=== PATIENT | male | born 1950 | race Caucasian/White ===

== ENCOUNTER 2018-09-16 14:45 | Emergency (ER) | payer SELFPAY ==
[~2018-09-16] VITALS: Ht 182.9 cm; Wt 63.5 kg
[2018-09-16 14:53] VITALS: BP 153/70
--- NOTE | 2018-09-16 15:00 | NUR ---
PT PLACED IN BED 1
--- NOTE | 2018-09-16 15:00 | NUR ---
EDMD MADE AWARE OF BS AND PT STATUS. ORDERS PLACED
--- NOTE | 2018-09-16 15:08 | NUR ---
CALLED PELLETIZER OPERATOR KENIA FOR CT-CODE BRAIN PER DR. WATTS.
[2018-09-16] MEDS ORDERED: MORPHINE SULFATE 4 MG/ML SYR IVP ONE (16:05)
[2018-09-16] MEDS ORDERED: ONDANSETRON 4 MG/2 ML VIAL IVP ONE (16:05)
[2018-09-16] MEDS ORDERED: DEXTROSE 50% 50 ML SYR IVP ONE (16:05)
--- NOTE | 2018-09-16 16:11 | NUR ---
Nursing assessment completed. Seen and evaluated by NARCISA YOST completed.
[2018-09-16 16:26] LABS: BASOPHILS % (AUTO) 0.1 % (0.0-2.0); EOSINOPHILS % (AUTO) 0.2 % (0.0-4.0); HEMATOCRIT 38.7 % (36-52); HEMOGLOBIN 12.9 g/dL (12.0-18.0); LYMPHOCYTES # (AUTO) 0.8 K/uL (2.0-11.5); LYMPHOCYTES % (AUTO) 9.9 % (20.5-51.1); MEAN CORPUSCULAR HEMOGLOBIN 32 pg (27-31); MEAN CORPUSCULAR HGB CONC 33 g/dL (33-37); MEAN CORPUSCULAR VOLUME 96.1 fL (80-94); MONOCYTES # (AUTO) 0.3 K/uL (0.8-1.0); MONOCYTES % (AUTO) 3.8 % (1.7-9.3); NEUTROPHILS # (AUTO) 7.2 K/uL (1.8-7.7); PLATELET COUNT (AUTO) 192 K/uL (140-450); RED BLOOD CELL COUNT(AUTO) 4.03 MIL/uL (4.20-6.10); RED CELL DISTRIBUTION WIDTH 12.7 % (11.6-13.7); WHITE BLOOD COUNT (AUTO) 8.4 K/uL (4.8-10.8)
[2018-09-16 16:40] LABS: ALBUMIN 4.4 g/dL (3.4-5.0); ANION GAP 14.5 (8-16); CARBON DIOXIDE 27.3 mmol/L (21-32); CREATININE 1.5 mg/dL (0.7-1.3); POTASSIUM 3.8 mmol/L (3.5-5.1); TOTAL BILIRUBIN 0.6 mg/dL (0.0-1.0)
[2018-09-16] MEDS ORDERED: NACL 0.9% 1,000 ML IV ONE (17:00)
[2018-09-16] MEDS ORDERED: HYDROcodone/APAP 5/325 MG 1 TAB TAB PO ONE (17:25)
[2018-09-16 19:25] VITALS: BP 166/79
--- NOTE | 2018-09-16 19:26 | NUR ---
Dispo and medical decision making DC home with instructions and prescriptions, understood by patient well. VS WNL, DC home ambulatory.
== END 2018-09-16 19:26 | disposition home or self-care (01) ==
LOC: MED 14:45
DX: H34.11 Central retinal artery occlusion, right eye (principal); R51 Headache; E11.649 Type 2 diabetes mellitus with hypoglycemia without coma; I10 Essential (primary) hypertension; E78.5 Hyperlipidemia, unspecified
CPT/HCPCS: 36415; 70450; 80053; 84484; 85025; 93005; 96361; 96374; 96375; 99284; J2405; J7030

== ENCOUNTER 2020-01-06 15:56 | Emergency (ER) | payer MEDICAID ==
[~2020-01-06] VITALS: Ht 172.7 cm; Wt 50.3 kg
[2020-01-06 15:59] VITALS: BP 139/77
--- NOTE | 2020-01-06 16:06 | NUR ---
PT C/O FATIGUE AND GENERALIZED BODY PAIN AND WEAKNESS X 3 MONTHS DENIES N/V STATES DIZZINESS AND FALLS MEDHX: CVA, DM, HTN
--- NOTE | 2020-01-06 16:07 | NUR ---
PT DENIES CP SPECIFICALLY, STATES HE HAS GENERALIZED BODY PAIN
--- NOTE | 2020-01-06 16:14 | NUR ---
DR CHAO EVALUATING PT AT BEDSIDE
--- NOTE | 2020-01-06 16:18 | NUR ---
EMT AT BEDSIDE FOR EKG
--- NOTE | 2020-01-06 16:31 | NUR ---
PT ATTEMPTING TO VOID FOR URINE SAMPLE NOW.
--- NOTE | 2020-01-06 16:38 | NUR ---
XRAY AT BEDSIDE
--- NOTE | 2020-01-06 16:46 | NUR ---
MARKETING AND PROMOTIONS MANAGER AT BEDSIDE FOR BLOOD DRAW
[2020-01-06 17:27] LABS: APPEARANCE,URINE CLEAR (CLEAR); BILIRUBIN,URINE NEGATIVE (NEGATIVE); BLOOD, URINE NEGATIVE (NEGATIVE); COLOR,URINE YELLOW (YELLOW); LEUKOCYTE ESTERASE ,URINE NEGATIVE (NEGATIVE); NITRITE, URINE NEGATIVE (NEGATIVE); UGLUCOSE NEGATIVE (NEGATIVE)
[2020-01-06 17:34] LABS: BASOPHILS # (AUTO) 0.1 K/uL (0.00-0.22); EOSINOPHILS % (AUTO) 0.6 % (0.0-4.0); HEMATOCRIT 36.6 % (36-52); HEMOGLOBIN 12.2 g/dL (12.0-18.0); LYMPHOCYTES # (AUTO) 0.8 K/uL (2.0-11.5); LYMPHOCYTES % (AUTO) 12.8 % (20.5-51.1); MEAN CORPUSCULAR HEMOGLOBIN 33 pg (27-31); MEAN CORPUSCULAR HGB CONC 34 g/dL (33-37); MEAN CORPUSCULAR VOLUME 99.1 fL (80-94); MONOCYTES # (AUTO) 0.4 K/uL (0.8-1.0); MONOCYTES % (AUTO) 6.7 % (1.7-9.3); NEUTROPHILS # (AUTO) 4.9 K/uL (1.8-7.7); NEUTROPHILS % (AUTO) 78.9 % (42.2-75.2); PLATELET COUNT (AUTO) 192 K/uL (140-450); RED BLOOD CELL COUNT(AUTO) 3.69 MIL/uL (4.20-6.10); RED CELL DISTRIBUTION WIDTH 13.1 % (11.6-13.7); WHITE BLOOD COUNT (AUTO) 6.2 K/uL (4.8-10.8)
[2020-01-06 17:57] LABS: ANION GAP 9.4 (8-16); CARBON DIOXIDE 30.8 mmol/L (21-32); CREATININE 1.2 mg/dL (0.6-1.3); POTASSIUM 4.2 mmol/L (3.5-5.1); THYROID STIMULATING HORMONE 3.33 uIU/mL (0.34-3.74); TOTAL BILIRUBIN 0.5 mg/dL (0.0-1.0)
--- NOTE | 2020-01-06 18:00 | NUR ---
PT WAS MOVED TO 9 VIA [facility].
[2020-01-06 18:33] VITALS: BP 132/68
--- NOTE | 2020-01-06 18:33 | NUR ---
PT UNABLE TO SIGN D/C PAPERWORK DUE TO MISSING FINGERS AND DEFORMITY IN FINGERS
--- NOTE | 2020-01-06 18:33 | NUR ---
Patient discharged with v/s stable. Written and verbal after care instructions given and explained. Patient alert, oriented and verbalized understanding of instructions. Ambulatory with steady gait W/ CANE.WILL BE TAKEN HOME BY FAMILY MEMBER. All questions addressed prior to discharge. ID band removed. Patient advised to follow up with PMD. Rx of TRAMADOL given. Patient educated on indication of medication including possible reaction and side effects. Opportunity to ask questions provided and answered.
== END 2020-01-06 18:33 | disposition home or self-care (01) ==
LOC: MED 15:56
DX: R07.9 Chest pain, unspecified (principal); E11.9 Type 2 diabetes mellitus without complications; E86.0 Dehydration; I10 Essential (primary) hypertension
CPT/HCPCS: 36415; 71045; 80053; 81003; 83690; 84443; 84484; 85025; 93005; 99285; Q0092

== ENCOUNTER 2020-09-09 16:46 | Inpatient (IN) | payer MEDICAID, SELFPAY ==
[~2020-09-09] VITALS: Ht 177.8 cm; Wt 56.2 kg
--- NOTE | 2020-09-09 16:50 | NUR ---
DR LARA AT BEDSIDE
[2020-09-09 16:52] VITALS: BP 115/47
--- NOTE | 2020-09-09 16:53 | NUR ---
LAB AND RT AT BEDSIDE
--- NOTE | 2020-09-09 16:55 | NUR ---
PT OM VENT SETTINGS: FIO2 40%, PEEP 5, RATE 18, VT 450
[2020-09-09 17:00] VITALS: BP 102/64
[2020-09-09] MEDS ORDERED: cefTRIAXone 1,000 MG in DEXT 5% MINI-BAG PLUS 50 ML IV ONE (17:00)
[2020-09-09] MEDS ORDERED: NACL 0.9% 1,000 ML IV SCH (17:00)
--- NOTE | 2020-09-09 17:01 | NUR ---
70 Y/O MALE ALOC FROM CUSTODIAL (CEC) REPORTS OF INCREASING ALOC. LAST KNOWN WELL 0800 TODAY. NORMALLY CAN MOUTH WORDS BUT UNABLE TO DO SO SINCE 0800. FEBRILE PER FACILITY MEDICATED WITH TYLENOL PRIOR TO ARRIVAL. PT A/0 X0, GCS 9. PT PLACED ON VENT SETTINGS BY RT. LUNG SOUNDS CLEAR BILATERAL THROUGHOUT. ACTIVE BOWEL SOUNDS PRESENT IN ALL 4 QUARDRANTS. PT LAYING IN BED, WITH BRAKES LOCKED, X2 SIDERAILS UP. CHRONIC TRACH TO VENT PMH: CHRONIC RESP FAILURE, ANEMIA, ANXIETY, DM NKA
[2020-09-09 17:10] LABS: APPEARANCE,URINE SL CLOUDY (CLEAR); BILIRUBIN,URINE NEGATIVE (NEGATIVE); BLOOD, URINE TRACE-I (NEGATIVE); COLOR,URINE YELLOW (YELLOW); LEUKOCYTE ESTERASE ,URINE 1+ (NEGATIVE); NITRITE, URINE NEGATIVE (NEGATIVE); UGLUCOSE NEGATIVE (NEGATIVE)
[2020-09-09 17:11] LABS: HEMATOCRIT 21.5 % (36-52); LYMPHOCYTES # (AUTO) 0.5 K/uL (2.0-11.5); LYMPHOCYTES % (AUTO) 3.5 % (20.5-51.1); MEAN CORPUSCULAR HEMOGLOBIN 33 pg (27-31); MEAN CORPUSCULAR HGB CONC 32 g/dL (33-37); MEAN CORPUSCULAR VOLUME 101.4 fL (80-94); MONOCYTES # (AUTO) 0.5 K/uL (0.8-1.0); MONOCYTES % (AUTO) 3.6 % (1.7-9.3); NEUTROPHILS # (AUTO) 13.5 K/uL (1.8-7.7); NEUTROPHILS % (AUTO) 92.9 % (42.2-75.2); PLATELET COUNT (AUTO) 162 K/uL (140-450); RED BLOOD CELL COUNT(AUTO) 2.12 MIL/uL (4.20-6.10); RED CELL DISTRIBUTION WIDTH 16.3 % (11.6-13.7); WHITE BLOOD COUNT (AUTO) 14.5 K/uL (4.8-10.8)
--- NOTE | 2020-09-09 17:11 | NUR ---
PT TAKEN TO CT VIA EMILIANO ACCOMPANIED BY RYAN RN, RT, AND CODY.
[2020-09-09] MEDS ORDERED: cefTRIAXone 1,000 MG VIAL ONE (17:15)
[2020-09-09 17:18] LABS: CALCIUM OXALATE CRYSTALS,UR 0-10 /HPF (None Seen)
[2020-09-09 17:31] LABS: ALBUMIN 2.2 g/dL (3.4-5.0); ANION GAP 3.3 (8-16); CARBON DIOXIDE 39.9 mmol/L (21-32); POTASSIUM 3.2 mmol/L (3.5-5.1); TOTAL BILIRUBIN 0.2 mg/dL (0.0-1.0)
--- NOTE | 2020-09-09 17:31 | NUR ---
NURSE PLASTICS AT PT BEDSIDE.
--- NOTE | 2020-09-09 17:36 | NUR ---
EMT at pt bedside for EKG.
--- NOTE | 2020-09-09 17:45 | NUR ---
JIM GRACIA SAMPLE COLLECTED AND WALKED TO LAB
--- NOTE | 2020-09-09 18:11 | NUR ---
Spoke with shaun Diaz [phone] for pt updates. Provided phone number for Vicky, shaun daughter [phone] for future updates PRN. Niuean speaking only.
[2020-09-09] MEDS ORDERED: [UNRECOGNIZED DRUG - CODE] GT (18:17)
[2020-09-09] MEDS ORDERED: METF850T GT (18:17)
[2020-09-09] MEDS ORDERED: VITA1TAB44 GT (18:17)
[2020-09-09] MEDS ORDERED: DILT-135 GT (18:17)
[2020-09-09] MEDS ORDERED: MIRT-91 GT (18:17)
[2020-09-09] MEDS ORDERED: GLIP5TER GT (18:17)
[2020-09-09] MEDS ORDERED: FERR325E14 GT (18:17)
[2020-09-09] MEDS ORDERED: SYN.05 GT (18:17)
[2020-09-09] MEDS ORDERED: TAMS0.4C96 GT (18:17)
[2020-09-09] MEDS ORDERED: TRA200 GT (18:17)
[2020-09-09] MEDS ORDERED: ZINC220C28 GT (18:17)
[2020-09-09] MEDS ORDERED: MULT-2253 GT (18:17)
[2020-09-09] MEDS ORDERED: ASCO-786 GT (18:17)
[2020-09-09] MEDS ORDERED: SCOP1PAT TD (18:17)
[2020-09-09] MEDS ORDERED: VITB12 GT (18:17)
[2020-09-09] MEDS ORDERED: VANCOMYCIN PER PHARMACY MC PRN (18:45)
[2020-09-09] MEDS ORDERED: NACL 0.9% 1,000 ML IV ONE (18:45)
[2020-09-09 19:00] VITALS: BP 115/38
--- NOTE | 2020-09-09 19:16 | NUR ---
GAVE REPORT TO AMELIA HEBERT. TRANSFER OF CARE AT THIS TIME.
--- NOTE | 2020-09-09 19:16 | NUR ---
REPORT RECEIVED FROM RYAN HEBERT FOR CONTINUITY OF CARE
--- NOTE | 2020-09-09 19:45 | NUR ---
LAB AT BEDSIDE
[2020-09-09 21:20] VITALS: BP 120/47
[2020-09-09] MEDS ORDERED: PIPERACILLIN/TAZOBACTAM 3.375 GM VIAL IV ONE (22:04)
[2020-09-09] MEDS: PIPERACILLIN/TAZOBACTAM 3.375 GM in DEXTROSE 5% 50 ML IV SCH (22:07)
[2020-09-09] MEDS ORDERED: VANCOMYCIN 1GM/DEXT 5% PREMIX 200 ML IV SCH (22:10)
[2020-09-09] MEDS ORDERED: VANCOMYCIN 1,000 MG VIAL ONE (22:14)
--- NOTE | 2020-09-09 22:58 | NUR ---
Karina lloyd in [facility] - 09/09/20 at 2259 by [email or web address] RECEIVED CALL FROM PT'S FAMILY J CARLOS
--- NOTE | 2020-09-09 22:59 | NUR ---
RECEIVED CALL FROM PT'S FAMILY SANJEEV CHRISTIAN UPDATED ON PT STATUS ALL QUESTIONS AND CONCERNS ANSWERED AT THIS TIME.
--- NOTE | 2020-09-09 23:11 | NUR ---
RT AT BEDSIDE
[2020-09-09 23:20] VITALS: BP 119/44
--- NOTE | 2020-09-09 23:47 | NUR ---
Patient appears to be resting comfortably in bed. Vital Signs within normal limits. Respirations even and unlabored. Will continue to monitor.
[2020-09-10] VITALS (9 sets, daily range): BP systolic 110–169; BP diastolic 43–78
--- NOTE | 2020-09-10 01:02 | NUR ---
Patient appears to be resting comfortably in bed. Vital Signs within normal limits. Respirations even and unlabored. Will continue to monitor.
--- NOTE | 2020-09-10 03:22 | NUR ---
Patient appears to be resting comfortably in bed. Vital Signs within normal limits. Respirations even and unlabored. Will continue to monitor.
[2020-09-10] MEDS ORDERED: PIPERACILLIN/TAZOBACTAM 3.375 GM VIAL IV ONE (05:09)
[2020-09-10] MEDS: PIPERACILLIN/TAZOBACTAM 3.375 GM in DEXTROSE 5% 50 ML IV SCH ×3 (05:14→20:47)
--- NOTE | 2020-09-10 05:51 | NUR ---
Patient appears to be resting comfortably in bed. Vital Signs within normal limits. Respirations even and unlabored. Will continue to monitor.
--- NOTE | 2020-09-10 07:14 | NUR ---
REPORT GIVEN TO WILLIS HEBERT FOR CONTINUITY OF CARE
--- NOTE | 2020-09-10 07:20 | NUR ---
REPORT RECIEVED FROM EMILEE CISNEROS. TRANSFER OF CARE AT THIS TIME.
--- NOTE | 2020-09-10 07:20 | NUR ---
Karina lloyd in [facility] - 09/10/20 at 0741 by JIMTiny REPORT RECIEVED FROM EMILEE CISNEROS. TRANSFER OF CARE AT THIS TIME.
--- NOTE | 2020-09-10 07:30 | NUR ---
PT HAD A BM, DARK STOOL. PT CHANGED INTO CLEAN GOWN, NEW DIAPER. REPOSITIONED TO LEFT SIDE FOR COMFORT. BED LOCKED AND IN LOWEST POSITION. SIDE RAILS X2. CART ATTENDANT/PULSE OX IN PLACE. BLANKETS REMOVED DUE TO RECTAL TEMP OF 99.8.
--- NOTE | 2020-09-10 07:55 | NUR ---
REPORT GIVEN TO EMILEE BROOKS VIA PHONE.
--- NOTE | 2020-09-10 08:05 | NUR ---
PATIENT HAS BEEN SCREENED AND CATEGORIZED HIGH NUTRITION RISK. PATIENT WILL BE SEEN WITHIN 1-2 DAYS OF ADMISSION. 09/10/2020-09/11/[address]
--- NOTE | 2020-09-10 08:15 | NUR ---
Patient will be admitted to care of DR. AMIN. Admited to TELE. Will go to room 124B. Belongings list completed. Report to EMILEE BROOKS.
--- NOTE | 2020-09-10 08:28 | NUR ---
REC'D PT FROM ED. PT A/OX1, CAN RECOGNIZE HIS NAME BEING CALLED. PT ON TRACH TO VENT. WITH FOLLOWING SETTINGS: PRVC A/C 158 BPM; TV 450; PEEP 5; FIO2 35. GTUBE SITE CLEAN, DRY. FAULKNER CATHETER 14 F PATENT. SACRAL PRESSURE WOUND. WARM SKIN, SATURATION OF 99%. NO PEDAL EDEMA. CAN AUSCULTATE VENTILATION ON JENNIFER. LUNGS, CRACKLING SOUNDS HEARD, S1S2 NOTED. PT ATTEMPTING TO VERBALIZE WORDS, INCOMPREHENSIBLE. CALL LIGHT WITHIN REACH. WILL CONTINUE TO MONITOR.
[2020-09-10 10:07] LABS: BASOPHILS % (AUTO) 0.1 % (0.0-2.0); EOSINOPHILS % (AUTO) 0.1 % (0.0-4.0); HEMOGLOBIN 8.3 g/dL (12.0-18.0); LYMPHOCYTES # (AUTO) 0.4 K/uL (2.0-11.5); LYMPHOCYTES % (AUTO) 2.8 % (20.5-51.1); MEAN CORPUSCULAR HEMOGLOBIN 32 pg (27-31); MEAN CORPUSCULAR HGB CONC 32 g/dL (33-37); MEAN CORPUSCULAR VOLUME 100.9 fL (80-94); MONOCYTES # (AUTO) 0.4 K/uL (0.8-1.0); PLATELET COUNT (AUTO) 181 K/uL (140-450); RED BLOOD CELL COUNT(AUTO) 2.57 MIL/uL (4.20-6.10); WHITE BLOOD COUNT (AUTO) 12.7 K/uL (4.8-10.8)
[2020-09-10 10:17] LABS: ANION GAP 4.7 (8-16); CARBON DIOXIDE 36.1 mmol/L (21-32); CREATININE 0.8 mg/dL (0.6-1.3)
[2020-09-10] MEDS ORDERED: MAG SULF 2000 MG/WATER PREMIX 50 ML IV PRN (10:20)
[2020-09-10 10:26] LABS: POTASSIUM 2.8 mmol/L (3.5-5.1)
--- NOTE | 2020-09-10 10:45 | NUR ---
COLLECTED MRSA NASAL SPECIMEN FROM LEFT AND RIGHT NARES. SENT SPECIMEN TO LAB. ORDER PLACED IN SYSTEM. PT TOLERATED PROCEDURE WELL.
--- NOTE | 2020-09-10 11:00 | NUR ---
pt to ct for scan of abdomen then back to room at 1115 placed back on vent with same settings
--- NOTE | 2020-09-10 11:15 | NUR ---
PT TRANSPORTED TO CT SCAN FOR IMAGING, PLACED ON MONITOR. PT WAS SCANNED, PT STABLE DURING TRANSPORT. PT PLACED ON VENTILATOR UPON RETURN. NO SIGN OF DISTRESS. PT TOLERATED PROCEDURE WELL.
[2020-09-10] MEDS ORDERED: POTASSIUM CHLORIDE 20% 40 MEQ/15 ML UDC GT PRN (11:20)
[2020-09-10] MEDS: BLOOD GLUCOSE MONITORING 1 DEV DEV FS SCH ×3 (11:39→20:48)
[2020-09-10] MEDS ORDERED: POTASSIUM CHLORIDE 40 MEQ, LIDOCAINE MPF 1% 25 MG in NACL 0.9% 250 ML IV SCH (12:30)
[2020-09-10] MEDS: FERROUS SULFATE 300 MG/5 ML UDC GT SCH ×2 (13:00→17:28)
[2020-09-10] MEDS: DILTIAZEM 60 MG TAB GT SCH ×2 (13:00→20:46)
[2020-09-10] MEDS: SCOPOLAMINE 1.5 MG/72 HR PATCH TD SCH (13:00)
--- NOTE | 2020-09-10 13:01 | NUR ---
BEGAN POTASSIUM INFUSION. PT TOLERATED PROCEDURE WELL.
--- NOTE | 2020-09-10 14:00 | NUR ---
PER DR. BURGOS, PAUSE GTUBE FEEDING D/T PT'S VISIBLE ABDOMINAL DISTENTION. PLACE PT ON INTERMITTENT LOW SUCTION. FOLLOWED DRRui'S ORDER .PT TOLERATED PROCEDURE WELL.
[2020-09-10] MEDS ORDERED: CRUSHER, PILL MC ONE (14:17)
--- NOTE | 2020-09-10 16:35 | NUR ---
TRANSPORTED PT TO CT SCAN FOR ABD CT. PT PLACED ON MONITOR. PT TOLERATED PROCEDURE WELL
[2020-09-10] MEDS ORDERED: NACL 0.9% IRR 250 ML BOTTLE IR PRN (16:45)
--- NOTE | 2020-09-10 16:45 | NUR ---
COVID PCR SPECIMEN COLLECTED, JENNIFER. NARES, PT TOLERATED PROCEDURE WELL. ORDER PLACED IN SYSTEM
[2020-09-10] MEDS ORDERED: MAGNESIUM HYDROXIDE 2400 MG/30 ML UDC PO PRN (17:20)
[2020-09-10] MEDS ORDERED: LACTULOSE 20 GM/30 ML UDC PO SCH (17:20)
[2020-09-10] MEDS ORDERED: MINERAL OIL 135 ML ENEM RC PRN (17:20)
[2020-09-10] MEDS: INSULIN LISPRO SLIDING SCALE 100 UNITS/ML VIAL SUBQ PRN (17:25)
--- NOTE | 2020-09-10 18:27 | NUR ---
CURRENT FAULKNER CATHETER WAS LEAKING, LINEN WAS SATURATED WITH URINE. CHECKED BALLOON WHICH ONLY HAD 2ML OF WATER, INSERTED CATHETER ONE MORE INCH AND ATTEMPTED TO REINFLATE BALLOON WITH RESISTANCE. REMOVED CURRENT 14FRENCH FAULKNER AND REPLACED CATHETER. URINARY CATHETER 16 WALLISIAN WAS PLACED USING STERILE TECHNIQUE. PT WAS PREPPED WITH ACCOMPANYING CLEANING PACKET, CATHETER WAS LUBRICATED AND INSERTED UNTIL URINE FLOW NOTICED, INSERTED ADDITIONAL 2 INCHES, INFLATED BALLOON WITH INCLUDED SALINE. PT TOLERATED PROCEDURE WELL.
[2020-09-10] MEDS ORDERED: KETOROLAC 15 MG/ML VIAL IVP PRN (18:35)
[2020-09-10] MEDS ORDERED: MORPHINE SULFATE 2 MG/ML SYR IVP PRN (18:35)
--- NOTE | 2020-09-10 19:38 | NUR ---
ENDORSED PT TO CYBER INCIDENT HANDLER NURSE, PT STABLE, CALL LIGHT WITHIN REACH.
--- NOTE | 2020-09-10 19:39 | NUR ---
RECEIVING PATIENT FROM AM NURSE FOR CONTINUITY OF CARE. PATIENT IS [place] SPEAKING, ABLE TO ANSWER SIMPLE QUESTIONS AND MAKE NEED KNOWN. A/A/O X2. ON TELE MONITOR. PATIENT IS ON TRACH TO VENT, FIO2 35, TV 450, PEEP 5, PRVC A/C, O2 SAT 99%. NO SIGN OF RESPIRATORY DISTRESS NOTED. G-TUBE IN PLACE IN INTERMITTENT SUCTION ORDERED, ABDOMEN SLIGHTLY DISTENDED, FEEDING HOLD ORDERED. IV ON RIGHT UPPER ARM SALINE LOCK. SACRAL WOUND WITH DRESSING IN PLACE, DRY, CLEAN AND INTACT. FAULKNER CATHETER IN PLACE, DRAINING WELL WITH CLEAR YELLOW. PLAN OF CARE DISCUSSED. BED IN LOW POSITION. SAFETY PRECAUTION IN PLACE. CALL LIGHT WITHIN REACH. WILL CONTINUE TO MONITOR.
[2020-09-10] MEDS: metFORMIN 850 MG TAB GT SCH (20:45)
[2020-09-10] MEDS: MIRTAZAPINE 15 MG TAB GT SCH (20:46)
[2020-09-10] MEDS: LABETALOL 200 MG TAB GT SCH (20:46)
[2020-09-10] MEDS: glipiZIDE 5 MG TAB GT SCH (20:47)
[2020-09-10] MEDS: ASCORBIC ACID 500 MG/5 ML ORASYR GT SCH (20:47)
--- NOTE | 2020-09-10 20:48 | NUR ---
MEDICATIONS GIVEN ORDER THROUGH G-TUBE, INTERMITTENT SUCTION TURN OFF. NO RESIDUAL NOTED. PATIENT TOLERATED WELL. WILL CONTINUE TO MONITOR.
[2020-09-10] MEDS: VANCOMYCIN 1,000 MG in DEXTROSE 5% 250 ML IV SCH (22:44)
--- NOTE | 2020-09-10 22:44 | NUR ---
MEDICATION GIVEN ORDERED. PATIENT IS AWAKE, RESPONSE TO NAME. PATIENT TOLERATED WELL. WILL CONTINUE TO MONITOR.
[2020-09-11] VITALS (11 sets, daily range): BP systolic 136–154; BP diastolic 53–70
--- NOTE | 2020-09-11 | NUR ---
ROUND CHECK. PATIENT IS CHANGED POSITION BY NURSES. PATIENT TOLERATED. PATIENT IS IN WARM, AND COMFORTABLE. NO SIGN OF RESPIRATORY DISTRESS NOTED. WILL CONTINUE TO MONITOR.
--- NOTE | 2020-09-11 02:00 | NUR ---
ROUND CHECK. PATIENT IS RESTING WITH EYES CLOSE. NO SIGN OF RESPIRATORY DISTRESS NOTED, O2 SAT 98%. WILL CONTINUE TO MONITOR.
--- NOTE | 2020-09-11 04:00 | NUR ---
ROUND CHECK. PATIENT IS AWAKE, WATCHING TV. ALERT TO NAME. NO SIGN OF RESPIRATORY DISTRESS NOTED, O2 SAT 97%. WILL CONTINUE TO MONITOR.
[2020-09-11] MEDS: PIPERACILLIN/TAZOBACTAM 3.375 GM in DEXTROSE 5% 50 ML IV SCH ×3 (05:11→20:46)
[2020-09-11] MEDS: DILTIAZEM 60 MG TAB GT SCH ×3 (05:11→20:42)
--- NOTE | 2020-09-11 06:00 | NUR ---
TURN PATIENT ORDERED. PATIENT TOLERATED. PATIENT AWAKE AND ALERT TO NAME. NO SIGN OF RESPIRATORY DISTRESS NOTED. WILL CONTINUE TO MONITOR.
[2020-09-11] MEDS: BLOOD GLUCOSE MONITORING 1 DEV DEV FS SCH ×4 (06:35→20:47)
[2020-09-11 07:03] LABS: EOSINOPHILS % (AUTO) 0.1 % (0.0-4.0); HEMATOCRIT 24.5 % (36-52); HEMOGLOBIN 8.1 g/dL (12.0-18.0); LYMPHOCYTES # (AUTO) 0.5 K/uL (2.0-11.5); MEAN CORPUSCULAR HEMOGLOBIN 34 pg (27-31); MEAN CORPUSCULAR HGB CONC 33 g/dL (33-37); MEAN CORPUSCULAR VOLUME 100.8 fL (80-94); MONOCYTES # (AUTO) 0.5 K/uL (0.8-1.0); MONOCYTES % (AUTO) 3.1 % (1.7-9.3); NEUTROPHILS # (AUTO) 15.4 K/uL (1.8-7.7); PLATELET COUNT (AUTO) 169 K/uL (140-450); RED BLOOD CELL COUNT(AUTO) 2.43 MIL/uL (4.20-6.10); RED CELL DISTRIBUTION WIDTH 16.3 % (11.6-13.7); WHITE BLOOD COUNT (AUTO) 16.5 K/uL (4.8-10.8)
--- NOTE | 2020-09-11 07:03 | NUR ---
rec'd pt on felix settins prvc rr 18 vt 450 itime 0.90 peep 5 fio2 35% alarms on and audible and vent is plugged into red outlet, bvm at hob, sxn pt small amt of white thin secretions b\s are coarse bilaterally pt is trach with portex 7 pt is sleeping with no signs ot distress noted at this time will continue to monitor pt
--- NOTE | 2020-09-11 07:07 | NUR ---
CONTACTED DR BURGOS, START TUBE FEEDING NOW AT 10ML/HR. WILL CONTINUE TO MONITOR.
[2020-09-11 07:25] LABS: ANION GAP 7.3 (8-16); CARBON DIOXIDE 37.3 mmol/L (21-32); CREATININE 0.6 mg/dL (0.6-1.3); MAGNESIUM 1.6 mg/dL (1.8-2.4)
--- NOTE | 2020-09-11 07:25 | NUR ---
ENDORSED PATIENT TO DAY SHIFT NURSE FOR CONTINUITY OF CARE.
--- NOTE | 2020-09-11 07:26 | NUR ---
RECEIVED REPORT FROM COMMUNICATIONS EQUIPMENT SUPERVISOR RN FOR CONTINUITY OF CARE. PATIENT RESTING IN BED, TRACH TO VENT. FIO2 35%, O2 SAT 98%, HR 63. EYES OPEN. BEDBOUND. SACRAL PRESSURE ULCER COVERED WITH OPTIFORM. DRESSING INTACT. IV TO RIGHT UPPER ARM 18G TKO. G TUBE IN PLACE, WITH FEEDING GLUCERNA 1.2 @ 10ML/HR. PER COMMUNICATIONS EQUIPMENT SUPERVISOR RN, G TUBE FEEDING JUST RESUMED NOW. 2 OF LARGE BM WITH BLACK STOOK DURING COMMUNICATIONS EQUIPMENT SUPERVISOR, PER COMMUNICATIONS EQUIPMENT SUPERVISOR RN. SAFETY MEASURES IN PLACE, WILL CONTINUE TO MONITOR.
[2020-09-11 07:47] LABS: POTASSIUM 2.6 mmol/L (3.5-5.1)
[2020-09-11 07:56] LABS: NEUTROPHILS % (AUTO) 93.8 % (42.2-75.2)
--- NOTE | 2020-09-11 07:56 | NUR ---
REPORT TO DR. AMIN REGARDING CRITICAL LAB VALUE. K+ 2.6, PHOS 1.0. ALSO REPORT REGARDING 2 OF THE BLACK STOOLS. ORDERS RECEIVED, WILL CARRY OUT.
[2020-09-11] MEDS ORDERED: POTASSIUM CHLORIDE 20% 40 MEQ/15 ML UDC GT SCH (08:15)
[2020-09-11] MEDS: FERROUS SULFATE 300 MG/5 ML UDC GT SCH ×3 (08:45→16:38)
[2020-09-11] MEDS: ZINC SULF 220 MG CAP GT SCH (08:46)
[2020-09-11] MEDS: glipiZIDE 5 MG TAB GT SCH ×2 (08:46→20:42)
[2020-09-11] MEDS: metFORMIN 850 MG TAB GT SCH ×2 (08:46→20:45)
[2020-09-11] MEDS: ASCORBIC ACID 500 MG/5 ML ORASYR GT SCH ×2 (08:46→20:43)
[2020-09-11] MEDS: LABETALOL 200 MG TAB GT SCH ×2 (08:46→20:43)
[2020-09-11] MEDS: LEVOTHYROXINE 0.05 MG TAB GT SCH (08:46)
[2020-09-11] MEDS: CYANOCOBALAMIN 100 MCG TAB GT SCH (08:49)
[2020-09-11] MEDS: VIT-B COMP/VIT-C/FOLIC ACID 1 TAB GT SCH (08:52)
[2020-09-11] MEDS ORDERED: [UNRECOGNIZED DRUG - OTHER] GT SCH (09:00)
[2020-09-11] MEDS ORDERED: POTASSIUM CHLORIDE 40 MEQ, LIDOCAINE MPF 1% 25 MG in NACL 0.9% 250 ML IV SCH (09:00)
[2020-09-11] MEDS ORDERED: TAMSULOSIN 0.4 MG CAP GT SCH (09:00)
[2020-09-11] MEDS ORDERED: NON-FORMULARY ITEM (Multivitamin (Multi-Vitamin Daily) 1 EACH) GT SCH (09:00)
--- NOTE | 2020-09-11 09:00 | NUR ---
SCHEDULED MEDICATIONS GIVEN. HOB ELEVATED, G TUBE FLUSH PROTOCOL FOLLOWED. NO RESIDUAL NOTED. O2 SAT 98%, NO ACUTE DISTRESS NOTED. WILL CONTINUE TO MONITOR.
--- NOTE | 2020-09-11 09:40 | NUR ---
(09/11/20) RD INITIAL ASSESSMENT COMPLETED PLEASE REFER TO NUTRITION ASSESSMENT UNDER CARE ACTIVITY FOR ESTIMATED NUTRITIONAL NEEDS. RD RECOMMENDATIONS: 1. CONTINUE TF GLUCERNA 1.2 AT 10 ML/HR TOLERATED. 2. RECOMMEND INCREASING TF RATE BY 10 ML/HR Q4H TOLERATED UNTIL GOAL RATE OF 60 ML/HR IS REACHED. --- TF GLUCERNA 1.2 AT 60 ML/HR WILL PROVIDE 1440 ML TOTAL VOLUME, 1728 KCAL, 86 GM PROTEIN, AND 1159 ML FREE WATER. THIS WILL MEET 86% UPPER-END EST KCAL NEEDS AND 100% UPPER-END EST PROTEIN NEEDS; ADEQUATE FOR NUTRIENT NEEDS, WOUND HEALING, MVI RDI. 3. RECOMMEND FWF 100 ML Q6H (TO PROVIDE ADDITIONAL 400 ML). 3. CONSULT RDN PRN. 4. RD WILL F/U 2-3 DAYS; HIGH RISK. FAROOQ KEARNEY, MS, RDN
--- NOTE | 2020-09-11 11:28 | NUR ---
ASSISTED MORNING SHOW PRODUCER TO CLEAN AND REPOSED THE PATIENT. WOUND DRESSING CHANGED DUE TO SOILED WITH STOOL. INCREASED FEEDING RATE TO 20ML/HR. SAFETY MEASURES IN PLACE, WILL CONTINUE TO MONITOR.
[2020-09-11] MEDS ORDERED: POTASSIUM CHLORIDE 10 MEQ TABER PO PRN (11:45)
[2020-09-11] MEDS ORDERED: MAG SULF 2000 MG/WATER PREMIX 50 ML IV PRN (11:45)
--- NOTE | 2020-09-11 12:20 | NUR ---
DR. AMIN CHECKED ON THE PATIENT AT BEDSIDE. UPDATED WITH PATIENT'S CONDITION.
[2020-09-11] MEDS ORDERED: POTASSIUM PHOSPHATE 15 MM in NACL 0.9% 250 ML IV SCH (13:30)
--- NOTE | 2020-09-11 14:42 | NUR ---
UPDATED PATIENT'S CONDITION TO PATIENT'S GRANDDAUGHTER SANJEEV [phone]. VERBALIZED UNDERSTANDING AND REQUEST UPDATES IF ANY CONDITION CHANGED. WILL ENDORSE TO VEGETABLE LOADER MACHINE OPERATOR RN.
[2020-09-11] MEDS: INSULIN LISPRO SLIDING SCALE 100 UNITS/ML VIAL SUBQ PRN ×2 (16:45→20:48)
--- NOTE | 2020-09-11 19:18 | NUR ---
ENDORSED PATIENT TO BAREBACK RIDER RN FOR CONTINUITY OF CARE. PATIENT IN STABLE CONDITION.
--- NOTE | 2020-09-11 19:19 | NUR ---
RECEIVING PATIENT FROM DAY NURSE FOR CONTINUITY OF CARE. PATIENT IS AWAKE, ALERT AND ORIENTED TO NAME. ON TELE MONITOR. ON TRACH TO VENT, FIO2 35%, PEEP 5, 3L O2, O2 SAT IS 94%. NO SIGN OF RESPIRATORY DISTRESS NOTED. IV ON RIGHT FA 22G, CLEAN AND PATENT, IS INFUSING FLUID. G-TUBE IN PLACE, FEEDING RUINING 30ML/HR. FAULKNER CATHETER IN PLACE WITH CLEAR DARK YELLOW URINE NOTED. CARE PLAN DISCUSSED. PRECAUTION IN PLACE. CALL LIGHT WITHIN REACH. WILL CONTINUE TO MONITOR.
[2020-09-11] MEDS: MIRTAZAPINE 15 MG TAB GT SCH (20:43)
--- NOTE | 2020-09-11 20:45 | NUR ---
PATIENT WAS GIVEN MEDICATIONS ORDERED. PATIENT TOLERATED WELL. WILL CONTINUE TO MONITOR.
[2020-09-11] MEDS: VANCOMYCIN 1,000 MG in DEXTROSE 5% 250 ML IV SCH (22:54)
--- NOTE | 2020-09-11 23:00 | NUR ---
START IV LINE ON LEFT FA 20G FOR FLUID RUNNING. PATIENT TOLERATED WELL. WILL CONTINUE TO MONITOR.
[2020-09-12] VITALS (14 sets, daily range): BP systolic 103–166; BP diastolic 46–79
--- NOTE | 2020-09-12 | NUR ---
ROUND CHECK. PATIENT IS SLEEPING. CHEST RISE AND FALL NOTED, O2 SAT 99%. WILL CONTINUE TO MONITOR.
--- NOTE | 2020-09-12 02:25 | NUR ---
ROUND CHECK. PATIENT IS AWAKE. NO RESPIRATORY DISTRESS NOTED. WILL CONTINUE TO MONITOR.
--- NOTE | 2020-09-12 03:35 | NUR ---
ROUND CHECK. PATIENT IS ASLEEP. CHEST RISE AND FALL NOTED. CALL LIGHT WITHIN REACH. WILL CONTINUE TO MONITOR.
[2020-09-12] MEDS: PIPERACILLIN/TAZOBACTAM 3.375 GM in DEXTROSE 5% 50 ML IV SCH ×3 (04:21→20:40)
[2020-09-12] MEDS: DILTIAZEM 60 MG TAB GT SCH ×3 (04:58→20:40)
--- NOTE | 2020-09-12 05:40 | NUR ---
RT ON BEDSIDE TO SUCTION PATIENT. NO SIGN OF RESPIRATORY DISTRESSED NOTED, O2 SAT 95%. CALL LIGHT WITHIN REACH. WILL CONTINUE TO MONITOR.
[2020-09-12 06:19] LABS: ANION GAP 17.8 (8-16); CARBON DIOXIDE 35.8 mmol/L (21-32); CREATININE 0.6 mg/dL (0.6-1.3); POTASSIUM 3.6 mmol/L (3.5-5.1)
[2020-09-12 06:26] LABS: MAGNESIUM 2.2 mg/dL (1.8-2.4); PHOSPHORUS 2.1 mg/dL (2.5-4.9)
[2020-09-12 06:27] LABS: EOSINOPHILS % (AUTO) 0.1 % (0.0-4.0); HEMATOCRIT 24.1 % (36-52); HEMOGLOBIN 7.9 g/dL (12.0-18.0); LYMPHOCYTES # (AUTO) 0.5 K/uL (2.0-11.5); LYMPHOCYTES % (AUTO) 3.8 % (20.5-51.1); MEAN CORPUSCULAR HEMOGLOBIN 33 pg (27-31); MEAN CORPUSCULAR HGB CONC 33 g/dL (33-37); MONOCYTES # (AUTO) 0.5 K/uL (0.8-1.0); MONOCYTES % (AUTO) 3.4 % (1.7-9.3); NEUTROPHILS # (AUTO) 12.9 K/uL (1.8-7.7); NEUTROPHILS % (AUTO) 92.7 % (42.2-75.2); PLATELET COUNT (AUTO) 163 K/uL (140-450); RED BLOOD CELL COUNT(AUTO) 2.36 MIL/uL (4.20-6.10); RED CELL DISTRIBUTION WIDTH 16.1 % (11.6-13.7); WHITE BLOOD COUNT (AUTO) 13.9 K/uL (4.8-10.8)
[2020-09-12] MEDS: BLOOD GLUCOSE MONITORING 1 DEV DEV FS SCH ×5 (06:38→20:36)
[2020-09-12] MEDS: INSULIN LISPRO SLIDING SCALE 100 UNITS/ML VIAL SUBQ PRN ×2 (06:40→11:53)
--- NOTE | 2020-09-12 07:11 | NUR ---
REC'D PT ON MITCHELL VENT SETTINGS AC 18 VT450 PEEP5 ITIME 0.90 FIO2 35% ALARMS ON AND AUDIBLE AND VENT IS PLUGGED INTO RED OUTLET, BVM AT [facility] SXN PT SMALL AMT OF CREAM COLOR SECRETIONS, PT IS TRACH WITH PORTEX 7 AND PT IS SLEEPING WITH NO SIGNS OF DISTRESS NOTED AT THIS TIME WILL CONTINUE TO MONITOR PT
--- NOTE | 2020-09-12 07:15 | NUR ---
ENDORSED PATIENT TO AM SHIFT NURSE FOR CONTINUITY OF CARE.
--- NOTE | 2020-09-12 07:21 | NUR ---
PT RECEIVED FROM NIGHT NURSE FOR CONTINUITY OF CARE. PT HAS NO S/S OF DISTRESS. FLACC SCORE IS (0). IV ON RIGHT FORE ARM IS CLEAR PATENT AND INTACT. CALL LIGHT IS WITHIN REACH. ALL SAFETY MEASURES ARE IN PLACE. WILL CONTINUE TO MONITOR.
[2020-09-12] MEDS: metFORMIN 850 MG TAB GT SCH ×2 (08:46→20:40)
[2020-09-12] MEDS: LABETALOL 200 MG TAB GT SCH ×2 (08:46→20:40)
[2020-09-12] MEDS: CYANOCOBALAMIN 100 MCG TAB GT SCH (08:46)
[2020-09-12] MEDS: VIT-B COMP/VIT-C/FOLIC ACID 1 TAB GT SCH (08:46)
[2020-09-12] MEDS: FERROUS SULFATE 300 MG/5 ML UDC GT SCH ×3 (08:47→17:19)
[2020-09-12] MEDS: ZINC SULF 220 MG CAP GT SCH (08:47)
[2020-09-12] MEDS: ASCORBIC ACID 500 MG/5 ML ORASYR GT SCH ×2 (08:47→20:40)
[2020-09-12] MEDS: glipiZIDE 5 MG TAB GT SCH ×2 (08:47→20:40)
--- NOTE | 2020-09-12 09:05 | NUR ---
MEDICATIONS GIVEN TO PT ORDERED BY MD. MEDICATION EDUCATION WAS PROVIDED. PT VERBALIZED UNDERSTANDING. NO S/S OF DISTRESS. CALL LIGHT IS WITHIN REACH. ALL SAFETY MEASURES ARE IN PLACE. WILL CONTINUE TO MONITOR. Addendum: 09/12/20 at 1237 by Becca Wilson RN RN PT IS APHASIC, BUT ABLE TO MOUTH WORDS AND NOD.
[2020-09-12] MEDS: LEVOTHYROXINE 0.05 MG TAB GT SCH (09:57)
--- NOTE | 2020-09-12 11:01 | NUR ---
SKIN ASSESSMENT DONE WITH PRIMARY RN. PT. ADMITTED WITH ALOC, LOW MARTHA SCALE AT HIGH RISK AND PRESSURE INJURY. PT. IS ON TRACH AND PEG TUBE. BMI 17.9. PT. SKIN DRY AND WITH MULTIPLE ECCHYMOSIS TO FACE AND UPPER EXTREMITIES. 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 PT. IS INCONTINENT OF BOWEL, BILATERAL LE SKIN DRY AND INTACT. HEELS OFFLOADING. POC DISCUSSED WITH PRIMARY RN. INTEGUMENTARY: -COCCYX DTI 3X2CM,100% MAROON, NO ODOR, YANIQUE WOUND SKIN TO SACRUM STAGE 3 PI -SACRUM PRESSURE INJURY STAGE 3, 9X6X0.2CM WOUND BED 100% GRANULATING TISSUE, WOUND BED MOIST, NO ODOR, YANIQUE-WOUND SKIN INDICATED FURTHER DAMAGE. -MAD TO GROINS, SCROTAL AREA AND YANIQUE-ANAL, SKIN MOIST AND INTACT -TRACH AND PEG YANIQUE-STOMA SKIN DRY AND CLEAN RECOMMENDATIONS -CLEANSE SACRALCOCCYX WOUND WITH WOUND CARE SOLUTION, PAT DRY APPLY THERAHONEY GEL TO WOUND BED, COVER WITH DRY DRESSING CHANGE QD AND PRN IF SOILING, OFFLOADING AT ALL TIMES -APPLY HYDRAGUADR TO GROINS, SCROTAL AREA AND YANIQUE-ANAL MAD BID AND PRN IF SOILING -TURN AND REPOSITION PATIENT Q 2H -ASSESS AND MONITOR SKIN CONDITION DURING POSITION CHANGE -OFFLOAD BILATERAL HEELS BY PLACING PILLOWS UNDER CALVES AT ALL TIMES, UNLESS OTHERWISE CONTRAINDICATED -PRESSURE REDISTRIBUTION BY PLACING PILLOWS AND OFFLOADING HIPS AND SACRALCOCCYX -KEEP SKIN CLEAN AND DRY AT ALL TIMES. PLEASE CONTACT WOUND CARE NURSE FOR ANY QUESTION AND CHANGE OF WOUND CONDITION.
--- NOTE | 2020-09-12 11:45 | NUR ---
PTS BLOOD GLUCOSE WAS ASSESSED. COVERAGE WAS PROVIDED PER MD ORDER. PT FLACC SCORE IS (0). CALL LIGHT IS WITHIN REACH. ALL SAFETY MEASURES ARE IN PLACE. WILL CONTINUE TO MONITOR.
[2020-09-12] MEDS: THERAHONEY GEL 42.5 GM TP SCH (12:53)
[2020-09-12] MEDS: HYDRAGUARD CREAM TP SCH (12:54)
--- NOTE | 2020-09-12 13:15 | NUR ---
WOUND CARE DONE PER ORDER. PT TOLERATED WELL. CALL LIGHT IS WITHIN REACH. ALL SAFETY MEASURES ARE IN PLACE. WILL CONTINUE TO MONITOR.
--- NOTE | 2020-09-12 15:11 | NUR ---
SOCIAL WORK NOTE: Patient's Orientation Unable To Assess Information Provided By [facility] Comments SW WAS UNABLE TO MEET PATIENT AT BEDSIDE. SW CONTACTED PATIENT'S EMERGENCY CONTACT AND LEFT . SW COMPLETED ASSESSMENT WITH [facility] STAFF. Public Health Doctor, Realtionship and Phone Number SANJEEV GONZALES GRANDDAUGHTER [phone] OLGA ABARCA DAUGHTER [phone] Healthcare Power of Insert Cutter No Does Patient Have a POLST No Identifying Problems No Social Work Triggers Is A Social Work Consult Needed No Mandate Report Filed No Explanation Of Identifying Problems PATIENT IS A 70-YEAR-OLD MALE ADMITTED FOR ALOC. PATIENT HAS PMHX OF CHRONIC RESPIRATORY FAILURE AND CARDIAC ARRHYTHMIA. PER CLAYTON, PATIENT IS SUBACUTE AND IS TRACH-VENT. Admitted From Sub Acute Assisted Facility [facility] [phone] Pre-Admission Level Of Functioning Status Total Care Prior Resources/Services Used In Last 12 Months SN[facility] Care Prior Resources/Service Comments C[facility]TON STATED PATIENT IS HALFWAY AND ON A BED HOLD. [place] [facility] [place] [facility] [place] Comments N/A Patient Had Caregiver No Home Support No Caregiver Issues Financial Issues No Known Financial Issue Referral To The Financial Counselor Needed No Factors/Needs No D/C Needs Identified Pt/Rep Participated In Discharge Plan Yes Patient/Family Agress With Discharge Plan Yes Discharge Plan Comments TENTATIVE DISCHARGE PLAN IS FOR PATIENT TO RETURN TO [facility]. DC Plan Status Initiated
[2020-09-12] MEDS ORDERED: VANCOMYCIN 1,000 MG in DEXTROSE 5% 250 ML IV SCH (16:00)
--- NOTE | 2020-09-12 16:12 | NUR ---
ADMINISTERED PRESCRIBED MEDS PER MD ORDER. BG OBTAINED, 149, NO PRN INSULIN COVERAGE NEEDED. PATIENT RESTING IN BED. SPO2 94% ON VENT. VISIBLE RISE AND FALL OF CHEST NOTED, PATIENT SHOWS NO SIGNS OF DISCOMFORT OR DISTRESS. SAFETY MEASURES IN PLACE. WILL CONTINUE TO MONITOR.
[2020-09-12 16:30] LABS: CHOL/HDL RATIO 2.2 (1-4.5); FREE T4 (FREE THYROXINE) 1.11 ng/dL (0.76-1.46); THYROID STIMULATING HORMONE 8.27 uIU/mL (0.34-3.74)
--- NOTE | 2020-09-12 17:44 | NUR ---
RECEIVED SPUTUM CULTURE AND URINE CULTURE LAB RESULTS. PATIENT POSITIVE PSEUDOMONAS AND E.COLI. NOTIFIED
--- NOTE | 2020-09-12 17:46 | NUR ---
ASSISTED FABRIC WORKER LEADER W/ TOILETING AND REPOSITIONING. PATIENT 1 SMALL BM, TOLERATED TX WELL. SPO2 90%. NO SIGNS OF DISTRESS. SAFETY MEASURES IN PLACE. WILL CONTINUE TO MONITOR.
--- NOTE | 2020-09-12 18:24 | NUR ---
PT IN BED RESTING COMFORTABLY. NO S/S OF DISTRESS. CALL LIGHT IS WITHIN REACH. ALL SAFETY MEASURES ARE IN PLACE. WILL CONTINUE TO MONITOR.
--- NOTE | 2020-09-12 19:05 | NUR ---
PT ENDORSED TO EXEC. CREATIVE DIRECTOR FOR CONTINUITY OF CARE. PT IS STABLE.
--- NOTE | 2020-09-12 19:30 | NUR ---
RECEIVING PATIENT FROM AM SHIFT NURSE FOR CONTINUITY OF CARE. AAOX3-4. TRACH TO VENT. VENT SETTINGS: FIO2 35%, PEEP 5. O2 SAT IS 100%. SUCTIONED THIN WHITE SECRETIONS. NO S/S OF RESPIRATORY DISTRESS NOTED. NO C/O PAIN. NO S/S ACUTE DISTRESS. SKIN WARM, DRY. SALINE LOCK TO LEFT FOREARM 20G PATENT/INTACT. IV SITE TO RIGHT FOREARM 20G PATENT/INTACT, INFUSING FLUIDS WELL. ABDOMEN SOFT, NONTENDER, NONDISTENDED. BOWEL SOUNDS ACTIVE X4 QUADRANTS. GT PATENT/INTACT. CONTINUES ON ENTERAL FEEDING, TOLERATING WELL. NO RESIDUAL NOTED. HOB UP 30 DEGREES. FAULKNER CATHETER IN PLACE WITH CLEAR YELLOW URINE NOTED. PLAN OF CARE DISCUSSED. ISOLATION PRECAUTION OBSERVED. SAFETY PRECAUTIONS IN PLACE. CALL LIGHT WITHIN REACH. WILL CONTINUE TO MONITOR.
[2020-09-12] MEDS: MIRTAZAPINE 15 MG TAB GT SCH (20:40)
--- NOTE | 2020-09-12 21:30 | NUR ---
PLACED FLEXISEAL FOR PATIENT WITH NO S/S DISTRESS NOTED. PATIENT CONTINUES IN STABLE CONDITION.
--- NOTE | 2020-09-12 22:06 | NUR ---
CALLED TO BEDSIDE DUE TO DESAT. FIO2 TITRATED TO 60% WILL CONTINUE TO MONITOR + TITRATE TOLERATED
--- NOTE | 2020-09-12 23:17 | NUR ---
PATIENT TURNED AND REPOSITIONED. NO S/S ACUTE DISTRESS. CALL LIGHT WITHIN REACH. FREQUENT ROUNDS BY ALL STAFF.
[2020-09-13] VITALS (14 sets, daily range): BP systolic 120–170; BP diastolic 56–79
[2020-09-13] MEDS: HYDRAGUARD CREAM TP SCH ×2 (01:00→13:15)
--- NOTE | 2020-09-13 01:00 | NUR ---
PT FOUND ASLEEP ON LEFT SIDE IN BED. PT HAS VISIBLE EQUAL RISE AND FALL UPON RESPIRATION. NO DISTRESS NOTED. BED LOCKED IN LOWEST POSITION WITH 2 SIDE RAILS UP FOR SAFETY. CALL LIGHT WITHIN REACH.
--- NOTE | 2020-09-13 03:00 | NUR ---
PT FOUND ASLEEP IN SUPINE IN BED. PT HAS VISIBLE EQUAL RISE AND FALL UPON RESPIRATION. NO DISTRESS NOTED. BED LOCKED IN LOWEST POSITION WITH 2 SIDE RAILS UP FOR SAFETY. CALL LIGHT WITHIN REACH.
[2020-09-13] MEDS ORDERED: MEROPENEM 1,000 MG VIAL IV ONE (04:28)
--- NOTE | 2020-09-13 05:00 | NUR ---
PT FOUND ASLEEP ON RIGHT SIDE IN BED. PT HAS VISIBLE EQUAL RISE AND FALL UPON RESPIRATION. NO DISTRESS NOTED. BED LOCKED IN LOWEST POSITION WITH 2 SIDE RAILS UP FOR SAFETY. CALL LIGHT WITHIN REACH.
[2020-09-13] MEDS: MEROPENEM 1,000 MG in NACL 0.9% 100 ML IV SCH ×3 (05:06→21:00)
[2020-09-13] MEDS: DILTIAZEM 60 MG TAB GT SCH ×3 (05:16→21:00)
[2020-09-13 06:01] LABS: ANION GAP 8.7 (8-16); CARBON DIOXIDE 35.9 mmol/L (21-32); CREATININE 0.8 mg/dL (0.6-1.3); POTASSIUM 3.6 mmol/L (3.5-5.1)
[2020-09-13 06:13] LABS: HEMATOCRIT 26.8 % (36-52); HEMOGLOBIN 8.6 g/dL (12.0-18.0); LYMPHOCYTES # (AUTO) 0.4 K/uL (2.0-11.5); LYMPHOCYTES % (AUTO) 1.6 % (20.5-51.1); MEAN CORPUSCULAR HEMOGLOBIN 33 pg (27-31); MEAN CORPUSCULAR HGB CONC 32 g/dL (33-37); MEAN CORPUSCULAR VOLUME 102.3 fL (80-94); MONOCYTES # (AUTO) 0.4 K/uL (0.8-1.0); MONOCYTES % (AUTO) 1.5 % (1.7-9.3); NEUTROPHILS # (AUTO) 23.5 K/uL (1.8-7.7); NEUTROPHILS % (AUTO) 96.9 % (42.2-75.2); PLATELET COUNT (AUTO) 188 K/uL (140-450); RED BLOOD CELL COUNT(AUTO) 2.62 MIL/uL (4.20-6.10); RED CELL DISTRIBUTION WIDTH 16.7 % (11.6-13.7); WHITE BLOOD COUNT (AUTO) 24.2 K/uL (4.8-10.8)
[2020-09-13 06:15] LABS: PHOSPHORUS 3.2 mg/dL (2.5-4.9)
[2020-09-13] MEDS: INSULIN LISPRO SLIDING SCALE 100 UNITS/ML VIAL SUBQ PRN ×3 (06:27→17:16)
[2020-09-13] MEDS: BLOOD GLUCOSE MONITORING 1 DEV DEV FS SCH ×4 (06:31→20:18)
--- NOTE | 2020-09-13 07:08 | NUR ---
TRANSFER OF CARE REPORT PROVIDED TO JAZZMINE HEBERT.
--- NOTE | 2020-09-13 07:09 | NUR ---
REC'D PT ON MITCHELL VENT SETTINGS PRVC RR18 VT 450 ITIME 1.00 PEEP 5 FIO2 50% ALARMS ON AND AUDIBLE AND BVM AT HOB SXN PT MODERATE AMT OF YELLOW SECRETIONS, B\S ARE COARSE BILATERALLY, PT IS TRACH WITH PORTEX 7 PT IS RESTING WITH NO SIGNS OF DISTRESS AT THIS TIME WILL CONTINUE TO MONITOR PT
--- NOTE | 2020-09-13 07:10 | NUR ---
RECEIVED PATIENT FROM NIGHT NURSE. PATIENT IN BED SLEEPING, RESP EVEN AND UNLABORED ON TRACH TO VENT. VENT SETTINGS: 50% FIO2 VT 450 RR 18 PEEP 5. CHEST NOTED RISING, O2SAT 98%. GTUBE FEED GLUCERNA 1.2 60ML/HR WITH H2O 100ML Q6H. RECTAL TUBE NOTED IN PLACE, NO NOTED DRAINAGE AT THIS TIME. FAULKNER IN PLACE WITH YELLOW URINE. RFA 22G AND LFA 20G SL. CONTACT ISO OBSERVED FOR SPUTUM. NO NOTED DISTRESS AT THIS TIME. HOB ELEVATED. SAFETY MEASURES IN PLACE. CALL LIGHT WITHIN REACH. WILL CONTINUE TO MONITOR.
[2020-09-13] MEDS: ASCORBIC ACID 500 MG/5 ML ORASYR GT SCH ×2 (08:54→21:00)
[2020-09-13] MEDS: LEVOTHYROXINE 0.05 MG TAB GT SCH (08:54)
[2020-09-13] MEDS: VIT-B COMP/VIT-C/FOLIC ACID 1 TAB GT SCH (08:54)
[2020-09-13] MEDS: FERROUS SULFATE 300 MG/5 ML UDC GT SCH ×3 (08:54→16:34)
[2020-09-13] MEDS: CYANOCOBALAMIN 100 MCG TAB GT SCH (08:54)
[2020-09-13] MEDS: glipiZIDE 5 MG TAB GT SCH ×2 (08:55→21:00)
[2020-09-13] MEDS: ZINC SULF 220 MG CAP GT SCH (08:55)
[2020-09-13] MEDS: metFORMIN 850 MG TAB GT SCH ×2 (08:55→21:00)
[2020-09-13] MEDS: LABETALOL 200 MG TAB GT SCH ×2 (08:56→21:00)
[2020-09-13] MEDS: SCOPOLAMINE 1.5 MG/72 HR PATCH TD SCH (08:56)
[2020-09-13] MEDS: COLISTIMETHATE SODIUM 150 MG in NACL 0.9% 100 ML IV SCH ×2 (09:02→21:00)
--- NOTE | 2020-09-13 09:26 | NUR ---
PATIENT IN BED SLEEPING, EYE OPENING SPONTANEOUS TO NAME AND SLOW TO TRACK. PATIENT ABLE TO NOD ACKNOWLEDGING QUESTIONS. L/S COARSE. BOWEL SOUNDS PRESENT. MORNING ROUTINE MEDICATIONS GIVEN VIA GTUBE. RESIDUAL CHECK <5ML AT THIS TIME. SKIN WARM TO TOUCH. NO NOTED ACUTE S/S DISTRESS. HOB ELEVATED. CALL LIGHT WITHIN REACH. WILL CONTINUE TO MONITOR.
--- NOTE | 2020-09-13 12:15 | NUR ---
WOUND CARE PROVIDED. PATIENT TOLERATED WELL. ORAL CARE PROVIDED. SUCTION PROVIDED. NO NOTED DISTRESS. WILL CONTINUE TO MONITOR.
--- NOTE | 2020-09-13 12:21 | NUR ---
DC PLANNIN YRS OLD MALE PATIENT WAS ADMITTED FROM [facility] WITH A DX OF ALOC, UTI AND PNA. PT HAS A HX OF CHRONIC RESP FAILURE TRACH TO VENT, HTN AND HYPOTHYROIDISM. COVID TEST NEGATIVE H/H 6.8 TRANSFUSED 1 UNIT PRBC AND H/H 7.6 /23.8. SEEN BY ID, PULMO AND GI. ADMINISTERED IVF, IV ABX MEROPENEM. DC PLANNING TO GO BACK TO [facility] WHEN STABLE. CM TO FOLLOW Addendum: 09/19/20 at 1449 by Tiny Aguilar RN DC PLANNING S/P CARDIAC ARREST ON 09/17 , XRAY SHOWED LEFT PATCHY INFILTRATES , ID FOLLOWING FOR ESBL OF URINE AND MDRO/RADIO PRESENTER OF SACRAL WOUND CONTINUE WITH MEROPENEM, FIO2 28% SATING 98 . DC PLAN TO GO BACK TO [facility] WHEN STABLE. CM TO FOLLOW Addendum: 09/20/20 at 1052 by Briana Azar CM DC ASSOCIATE PROFESSOR OF SURGERY: POSSIBLE DC BACK TO [facility] TODAY. FAXED PATIENTS CLINICALS WILL FOLLOW UP. Addendum: 09/22/20 at 1155 by Briana Azar CM DC ASSOCIATE PROFESSOR OF SURGERY: PATIENT WILL DC BACK TO [facility] TODAY. PATIENT CAN GO TO ROOM [address] PARRISH. ARRANGED WILL CALL TRANSPORTATION WITH [facility] [phone] Addendum: 09/22/20 at 1234 by Briana Azar CM DC ASSOCIATE PROFESSOR OF SURGERY: PATIENT WILL BE PICKED UP BY [facility] AT 2:00 PM GOING BACK TO [facility] ROOM 2. NOTIFIED CHARGE NURSE HERBERT Addendum: 09/22/20 at 1235 by Briana Azar CM [facility] [phone] ROOM 2-C DR. PARRISH
--- NOTE | 2020-09-13 13:05 | NUR ---
DECREASED FIO2 TO 40% EMILEE DOVER NOTIFIED OF CHANGES MADE
[2020-09-13] MEDS: THERAHONEY GEL 42.5 GM TP SCH (13:15)
--- NOTE | 2020-09-13 14:20 | NUR ---
TUBE FEEDING CHANGED. RESIDUAL CHECK <10ML. PATIENT TOLERATED WELL. TRACH SUCTION PROVIDED, SMALL WHITE SECRETIONS CLEARED. O2SAT 94%. NO NOTED DISTRESS AT THIS TIME. CALL LIGHT WITHIN REACH. WILL CONTINUE TO MONITOR.
--- NOTE | 2020-09-13 17:15 | NUR ---
BLOOD GLUCOSE 162. INSULIN GIVEN PER SLIDING SCALE. RECTAL TUBE IRRIGATED WITH WATER WITH RETURN NOTED WITH LIQUID STOOL. PATIENT TURNED, REPOSITIONED AND PERSONAL CARE RENDERED. PATIENT TOLERATED WELL. CALL LIGHT WITHIN REACH. WILL CONTINUE TO MONITOR.
--- NOTE | 2020-09-13 19:00 | NUR ---
PATIENT RECEIVED IN BED, ALERT X 2. . PATIENT IN BED SLEEPING, RESP EVEN AND UNLABORED ON TRACH TO VENT. VENT SETTINGS CONTINUED: TV 450, RESP 18, 50% FIO2 VT 450 RR 18 PEEP 5. CHEST NOTED RISING, O2SAT 98%. GTUBE FEED GLUCERNA 1.2 60ML/HR WITH H2O 100ML Q6H. RECTAL TUBE NOTED IN PLACE, NO NOTED DRAINAGE AT THIS TIME. FAULKNER CATHETER IN PLACE WITH YELLOW URINE IN BAG. RFA 22G AND LFA 20G SL. CONTACT ISOLATION OBSERVED FOR SPUTUM. HOB ELEVATED, FALL AND SAFETY PRECAUTIONARY MEASURES ONGOING. CALL LIGHT WITHIN REACH. WILL CONTINUE TO MONITOR. IV ANTIBIOTIC THERAPY ONGOING WITH NO SIDE EFFECTS NOTED. MAXIMAL CARE RENDERED, ORAL CARE RENDERED AND SUCTIONED BY RESPIRATORY THERAPIST NOTED.
--- NOTE | 2020-09-13 19:13 | NUR ---
ENDORSED PATIENT TO NIGHT NURSE. PATIENT IN STABLE CONDITION.
[2020-09-13] MEDS: MIRTAZAPINE 15 MG TAB GT SCH (21:00)
[2020-09-14] VITALS (9 sets, daily range): BP systolic 118–148; BP diastolic 55–73
--- NOTE | 2020-09-14 | NUR ---
TUBE FEEDING CHANGED. RESIDUAL CHECK <10ML. PATIENT TOLERATED WELL. TRACH SUCTION PROVIDED, SMALL WHITE SECRETIONS CLEARED. O2SAT 94%. NO NOTED DISTRESS AT THIS TIME. CALL LIGHT WITHIN REACH. WILL CONTINUE TO MONITOR. PATIENT SEEN BY RESPIRATORY THERAPIST. MAXIMAL CARE RENDERED. NO ACUTE DISTRESS NOTED.
[2020-09-14 05:57] LABS: ANION GAP 5.7 (8-16); CARBON DIOXIDE 36.5 mmol/L (21-32); CREATININE 0.9 mg/dL (0.6-1.3); POTASSIUM 3.2 mmol/L (3.5-5.1)
[2020-09-14 06:01] LABS: PHOSPHORUS 2.6 mg/dL (2.5-4.9)
[2020-09-14] MEDS: DILTIAZEM 60 MG TAB GT SCH ×3 (06:19→21:35)
[2020-09-14] MEDS: MEROPENEM 1,000 MG in NACL 0.9% 100 ML IV SCH ×3 (06:19→21:36)
[2020-09-14] MEDS: HYDRAGUARD CREAM TP SCH ×2 (06:20→13:00)
[2020-09-14] MEDS: BLOOD GLUCOSE MONITORING 1 DEV DEV FS SCH ×4 (06:46→21:00)
--- NOTE | 2020-09-14 07:15 | NUR ---
REC'D REPORT FROM SIMULATION ENGINEER NURSE. PT TRACH TO VENT, STABLE, NO SIGN OF DISTRESS. FAULKNER CATHETER AND RECTAL BAG IN PLACE, PATENT. BED LOWEST POSITION.
[2020-09-14 07:36] LABS: BASOPHILS % (AUTO) 0.1 % (0.0-2.0); EOSINOPHILS # (AUTO) 0.1 K/uL (0-0.4); EOSINOPHILS % (AUTO) 0.4 % (0.0-4.0); HEMATOCRIT 22.5 % (36-52); HEMOGLOBIN 7.3 g/dL (12.0-18.0); LYMPHOCYTES # (AUTO) 0.6 K/uL (2.0-11.5); LYMPHOCYTES % (AUTO) 3.8 % (20.5-51.1); MEAN CORPUSCULAR HEMOGLOBIN 33 pg (27-31); MEAN CORPUSCULAR HGB CONC 32 g/dL (33-37); MEAN CORPUSCULAR VOLUME 102.1 fL (80-94); MONOCYTES # (AUTO) 0.4 K/uL (0.8-1.0); MONOCYTES % (AUTO) 2.4 % (1.7-9.3); NEUTROPHILS # (AUTO) 15.7 K/uL (1.8-7.7); NEUTROPHILS % (AUTO) 93.3 % (42.2-75.2); PLATELET COUNT (AUTO) 158 K/uL (140-450); RED CELL DISTRIBUTION WIDTH 16.7 % (11.6-13.7); WHITE BLOOD COUNT (AUTO) 16.9 K/uL (4.8-10.8)
[2020-09-14] MEDS: COLISTIMETHATE SODIUM 150 MG in NACL 0.9% 100 ML IV SCH ×2 (09:00→21:36)
[2020-09-14] MEDS: CYANOCOBALAMIN 100 MCG TAB GT SCH (09:00)
[2020-09-14] MEDS: ASCORBIC ACID 500 MG/5 ML ORASYR GT SCH ×2 (09:59→21:34)
[2020-09-14] MEDS: LEVOTHYROXINE 0.05 MG TAB GT SCH (09:59)
[2020-09-14] MEDS: FERROUS SULFATE 300 MG/5 ML UDC GT SCH ×3 (09:59→17:00)
[2020-09-14] MEDS: glipiZIDE 5 MG TAB GT SCH ×2 (09:59→21:34)
[2020-09-14] MEDS: ZINC SULF 220 MG CAP GT SCH (10:00)
[2020-09-14] MEDS: metFORMIN 850 MG TAB GT SCH ×2 (10:00→21:39)
[2020-09-14] MEDS: VIT-B COMP/VIT-C/FOLIC ACID 1 TAB GT SCH (10:00)
[2020-09-14] MEDS: LABETALOL 200 MG TAB GT SCH ×2 (10:01→21:35)
--- NOTE | 2020-09-14 12:50 | NUR ---
PT WAS MOUTHING FOR WATER, PERFORMED ORAL CARE, REMOVED SLOUGH FROM TONGUE, PT TOLERATED PROCEDURE WELL.
[2020-09-14] MEDS: THERAHONEY GEL 42.5 GM TP SCH (13:00)
--- NOTE | 2020-09-14 14:12 | NUR ---
09/14/20 RD FOLLOW UP COMPLETED PLEASE REFER TO NUTRITION ASSESSMENT UNDER CARE ACTIVITY FOR ESTIMATED NUTRITIONAL NEEDS. 1. CONTINUE TF GLUCERNA 1.2 @ 60 ML/HR -THIS PROVIDES 1440 ML TOTAL VOLUME, 1728 KCAL, 86 GM PROTEIN, AND 1159 ML FREE WATER. THIS WILL MEET >90% OF ESTIMATED NUTRIENT NEEDS 2. RECOMMEND FWF 100 ML Q6H (TO PROVIDE ADDITIONAL 400 ML). 3. CONSULT RDN PRN. 4. RD WILL F/U 2-3 DAYS; HIGH RISK. YARA ABARCA RD
--- NOTE | 2020-09-14 18:00 | NUR ---
FINGER GLUCOSE CHECK, CURRENTLY 55, WILL ADMINISTER DEXTROSE PER MD ORDER.
[2020-09-14] MEDS: DEXTROSE 50% 50 ML SYR IVP PRN (18:26)
--- NOTE | 2020-09-14 18:30 | NUR ---
FINGER GLUCOSE STICK PERFORMED, CURRENTLY 122. PT STABLE, NO SIGN OF DISTRESS
--- NOTE | 2020-09-14 19:00 | NUR ---
PATIENT RECEIVED IN BED, ALERT X 2. PATIENT IN BED SLEEPING, RESP EVEN AND UNLABORED ON TRACH TO VENT. VENT SETTINGS CONTINUED: TV 450, RESP 18, 50% FIO2 VT 450 RR 18 PEEP 5. CHEST NOTED RISING, O2SAT 98%. GTUBE FEED GLUCERNA 1.2 60ML/HR WITH H2O 100ML Q6H. RECTAL TUBE NOTED IN PLACE, NO NOTED DRAINAGE AT THIS TIME. FAULKNER CATHETER IN PLACE WITH YELLOW URINE IN BAG. RFA 22G AND LFA 20G SL. CONTACT ISOLATION OBSERVED FOR SPUTUM. HOB ELEVATED, FALL AND SAFETY PRECAUTIONARY MEASURES ONGOING. CALL LIGHT WITHIN REACH. WILL CONTINUE TO MONITOR. IV ANTIBIOTIC THERAPY ONGOING WITH NO SIDE EFFECTS NOTED. MAXIMAL CARE RENDERED, ORAL CARE RENDERED AND SUCTIONED BY RESPIRATORY THERAPIST
--- NOTE | 2020-09-14 19:37 | NUR ---
ENDORSED PT TO QUARTZ MINER NURSE, PT STABLE. NO SIGN OF DISTRESS
[2020-09-14] MEDS: MIRTAZAPINE 15 MG TAB GT SCH (21:35)
[2020-09-15] VITALS (12 sets, daily range): BP systolic 118–145; BP diastolic 56–70
--- NOTE | 2020-09-15 01:11 | NUR ---
FIO2 TITRATED TO 60% DUE TO DESAT WILL CONTINUE TO MONITOR AND TITRATE TOLERATED
[2020-09-15] MEDS: HYDRAGUARD CREAM TP SCH ×2 (05:03→13:43)
[2020-09-15] MEDS: DILTIAZEM 60 MG TAB GT SCH ×3 (05:04→21:07)
[2020-09-15] MEDS: MEROPENEM 1,000 MG in NACL 0.9% 100 ML IV SCH ×3 (05:08→20:56)
[2020-09-15 06:08] LABS: ANION GAP 7.6 (8-16); CARBON DIOXIDE 36.8 mmol/L (21-32); CREATININE 0.9 mg/dL (0.6-1.3); POTASSIUM 3.4 mmol/L (3.5-5.1)
[2020-09-15 06:22] LABS: PHOSPHORUS 3.8 mg/dL (2.5-4.9)
[2020-09-15] MEDS: BLOOD GLUCOSE MONITORING 1 DEV DEV FS SCH ×4 (06:49→21:07)
[2020-09-15] MEDS: DEXTROSE 50% 50 ML SYR IVP PRN ×5 (07:07→21:21)
--- NOTE | 2020-09-15 07:07 | NUR ---
PATIENT MEDICATED WITH D50 DUE TO BLOOD GLUCOSE OF 40. RN TO REPEAT BLOOD GLUCOSE. PATIENT ALERT TO SELF. REQUIRES MAXIMAL ASSISTANCE WITH ADL'S AND REPOSITIONING. RESPIRATIONS NONLABORED. ACYANOTIC TO COLOR, MAKING EYE CONTACT DURING CARE. TOTAL CARE RENDERED AND ONGOING.
[2020-09-15 07:09] LABS: BASOPHILS % (AUTO) 0.1 % (0.0-2.0); EOSINOPHILS # (AUTO) 0.1 K/uL (0-0.4); EOSINOPHILS % (AUTO) 0.4 % (0.0-4.0); HEMATOCRIT 21.6 % (36-52); LYMPHOCYTES # (AUTO) 0.5 K/uL (2.0-11.5); LYMPHOCYTES % (AUTO) 2.9 % (20.5-51.1); MEAN CORPUSCULAR HEMOGLOBIN 33 pg (27-31); MEAN CORPUSCULAR HGB CONC 32 g/dL (33-37); MEAN CORPUSCULAR VOLUME 103.7 fL (80-94); MONOCYTES # (AUTO) 0.4 K/uL (0.8-1.0); MONOCYTES % (AUTO) 2.5 % (1.7-9.3); NEUTROPHILS # (AUTO) 14.8 K/uL (1.8-7.7); NEUTROPHILS % (AUTO) 94.1 % (42.2-75.2); PLATELET COUNT (AUTO) 178 K/uL (140-450); RED BLOOD CELL COUNT(AUTO) 2.09 MIL/uL (4.20-6.10); RED CELL DISTRIBUTION WIDTH 16.1 % (11.6-13.7); WHITE BLOOD COUNT (AUTO) 15.7 K/uL (4.8-10.8)
--- NOTE | 2020-09-15 07:30 | NUR ---
RECEIVED REPORT FROM NIGHT NURSE FOR CONTINUITY OF CARE. PT IS TRACH TO VENT. PT HAS L 22G FA AND RAC 20G SALINE LOCK. PT HAS RECTAL TUBE. PT HAS FAULKNER CATH. PT HAS G-TUBE INFUSING GLUCERNA 1.2 AT 60ML WITH WATER FLUSH OF 100 Q6H. 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 PT HAS SACRAL WOUND. SAFETY MEASURES IN PLACE, PT ON CONTACT ISOLATION. WILL CONTINUE TO MONITOR
--- NOTE | 2020-09-15 08:07 | NUR ---
RN REPEAT PATIENT BLOODSUGAR OF 80. INFORMED ONCOMING RN TO PATIENT RESULTS AND FOR ONGOING MEDICAL CARE.
[2020-09-15] MEDS: glipiZIDE 5 MG TAB GT SCH (09:00)
[2020-09-15] MEDS: metFORMIN 850 MG TAB GT SCH (09:00)
[2020-09-15 09:09] LABS: HEMOGLOBIN 6.8 g/dL (12.0-18.0)
[2020-09-15] MEDS: ASCORBIC ACID 500 MG/5 ML ORASYR GT SCH ×2 (09:51→21:07)
[2020-09-15] MEDS: FERROUS SULFATE 300 MG/5 ML UDC GT SCH ×3 (09:51→17:21)
[2020-09-15] MEDS: ZINC SULF 220 MG CAP GT SCH (09:52)
[2020-09-15] MEDS: VIT-B COMP/VIT-C/FOLIC ACID 1 TAB GT SCH (09:52)
[2020-09-15] MEDS: LABETALOL 200 MG TAB GT SCH ×2 (09:53→21:08)
[2020-09-15] MEDS: LEVOTHYROXINE 0.05 MG TAB GT SCH (09:53)
[2020-09-15] MEDS: CYANOCOBALAMIN 100 MCG TAB GT SCH (09:55)
[2020-09-15] MEDS: COLISTIMETHATE SODIUM 150 MG in NACL 0.9% 100 ML IV SCH ×2 (10:03→21:34)
--- NOTE | 2020-09-15 11:02 | NUR ---
MADE A FOLLOW UP CALL TO DR. Eula GILMORE REGARDING THE GI CONSULT, DR. GILMORE STATED HE WILL COME IN AN HOUR. RN ASSIGNED MADE AWARE.
--- NOTE | 2020-09-15 11:40 | NUR ---
ADMINISTERED 50% DEXTROSE FOR BLOOD 32, WILL NOTIFIED DR PLEAYO. MEDICATION EDUCATION PROVIDED. PT TOLERATED WELL. PT IS STABLE, WILL CONTINUE TO MONITOR.
--- NOTE | 2020-09-15 12:10 | NUR ---
OBTAINED CONSENT FOR BLOOD TRANSFUSION, STARTED BLOOD TRANSFUSION, WILL MONITOR PT PER PROTOCOL. PT IS TOLERATING WELL.
--- NOTE | 2020-09-15 13:03 | NUR ---
RECEIVED VERBAL ORDER FROM DR GILMORE TO ORDER OCCULT BLOOD FOR PT. WILL INPUT ORDER AND CARRY IT OUT.
[2020-09-15] MEDS: THERAHONEY GEL 42.5 GM TP SCH (13:44)
--- NOTE | 2020-09-15 13:56 | NUR ---
ADMINISTERED SCHEDULED MEDICATION, MEDICATION EDUCATION PROVIDED. PT TOLERATED WELL. PT IS STABLE, WILL CONTINUE TO MONITOR.
--- NOTE | 2020-09-15 16:41 | NUR ---
ADMINISTERED 50% DEXTROSE FOR BLOOD GLUCOSE OF 14, WILL NOTIFIED DR PELAYO
--- NOTE | 2020-09-15 16:46 | NUR ---
RECEIVED TORB FROM DR PELAYO TO DISCONTINUE METFORMIN AND GLIPIZIDE. WILL INPUT ORDER AND CARRY IT OUT.
--- NOTE | 2020-09-15 16:49 | NUR ---
RECEIVED TORB FROM DR PELAYO FOR D5 NS AT 50 ML/H, WILL INPUT ORDER AND CARRY IT OUT.
[2020-09-15] MEDS ORDERED: DEXT 5% / NACL 0.9% 500 ML IV SCH (16:50)
[2020-09-15] MEDS ORDERED: DEXTROSE 5% 1,000 ML IV SCH (16:50)
--- NOTE | 2020-09-15 16:54 | NUR ---
RECEIVED TORB FROM DR PELAYO FOR D5 1/2 NS AT 50 ML/H, WILL INPUT ORDER AND CARRY IT OUT.
[2020-09-15] MEDS ORDERED: DEXT 5% / NACL 0.45% 1,000 ML IV SCH (16:55)
[2020-09-15 17:25] LABS: HEMATOCRIT 23.4 % (36-52); HEMOGLOBIN 7.5 g/dL (12.0-18.0)
--- NOTE | 2020-09-15 17:27 | NUR ---
ADMINISTERED SCHEDULED MEDICATION, MEDICATION EDUCATION PROVIDED. PT TOLERATED WELL. WILL CONTINUE TO MONITOR.
--- NOTE | 2020-09-15 17:59 | NUR ---
RE-ASSESS PT BLOOD GLUCOSE AND IT WAS 45. ADMINISTERED 50% DEXTROSE FOR BLOOD GLUCOSE OF 45. MEDICATION EDUCATION PROVIDED. WILL CONTINUE TO MONITOR.
--- NOTE | 2020-09-15 18:36 | NUR ---
RE-ASSESS PT'S BLOOD GLUCOSE: 112. WILL CONTINUE TO MONITOR
--- NOTE | 2020-09-15 19:18 | NUR ---
ENDORSE PT TO NIGHT NURSE FOR CONTINUITY OF CARE.
--- NOTE | 2020-09-15 19:20 | NUR ---
RECEIVED BEDSIDE ENDORSEMENT FROM AM SHIFT RN. PT IS NONVERBAL, ON TRACH TO VENT, NO DISTRESS, IVF INFUSING, GT FEEDING ON GOING W/ NO RESIDUAL PER AM NURSE, W/ RECTAL TUBE IN PLACE, FAULKNER IN PLACE, RT 2ND,3RD AND 4TH FINGER AMPUTATED, SAFETY MEASURES IN PLACE, BED IN LOW POSITION, PLAN OF CARE DISCUSSED, CALL LIGHT WITHIN REACH.
[2020-09-15] MEDS: MIRTAZAPINE 15 MG TAB GT SCH (21:08)
--- NOTE | 2020-09-15 21:29 | NUR ---
HOB ELEVATED AT ALL TIMES, CHECKED GT PLACEMENT, IN PLACE, NO RESIDUAL NOTED, DUE MEDS GIVEN ORDERED, TOLERATED WELL, NO A/R NOTED, D50 IVP GIVEN FOR BS OF 42. WILL CONTINUE TO MONITOR, CALL LIGHT WITHIN REACH
--- NOTE | 2020-09-15 22:31 | NUR ---
Blood sugar went up to 85, will continue to monitor, call light within reach.
[2020-09-16] VITALS (12 sets, daily range): BP systolic 114–166; BP diastolic 57–67
--- NOTE | 2020-09-16 00:10 | NUR ---
Cooling measures applied for temp 99.9. will continue to monitor.
--- NOTE | 2020-09-16 01:00 | NUR ---
Rechecked temp 98.9, call light within reach.
[2020-09-16] MEDS: HYDRAGUARD CREAM TP SCH ×2 (01:12→13:00)
--- NOTE | 2020-09-16 01:12 | NUR ---
Applied hydraguard to groin and scrotal area, tolerated well, call light within reach.
[2020-09-16] MEDS: MEROPENEM 1,000 MG in NACL 0.9% 100 ML IV SCH ×3 (05:22→21:35)
--- NOTE | 2020-09-16 05:24 | NUR ---
MERREM IV GIVEN ORDERED, NO A/R NOTED.
[2020-09-16] MEDS: BLOOD GLUCOSE MONITORING 1 DEV DEV FS SCH ×4 (06:02→21:55)
[2020-09-16] MEDS: DEXTROSE 50% 50 ML SYR IVP PRN ×4 (06:02→16:58)
[2020-09-16] MEDS: DILTIAZEM 60 MG TAB GT SCH ×3 (06:03→21:37)
--- NOTE | 2020-09-16 06:10 | NUR ---
DUE MEDS GIVEN ORDERED, TOLERATED WELL. PERINEAL CARE RENDERED, CALL LIGHT WITHIN REACH.
[2020-09-16 06:17] LABS: ANION GAP 8.1 (8-16); CARBON DIOXIDE 36.9 mmol/L (21-32)
[2020-09-16 06:23] LABS: BASOPHILS # (AUTO) 0.1 K/uL (0.00-0.22); BASOPHILS % (AUTO) 0.6 % (0.0-2.0); EOSINOPHILS # (AUTO) 0.1 K/uL (0-0.4); EOSINOPHILS % (AUTO) 1.3 % (0.0-4.0); HEMATOCRIT 23.3 % (36-52); HEMOGLOBIN 7.6 g/dL (12.0-18.0); LYMPHOCYTES # (AUTO) 0.6 K/uL (2.0-11.5); LYMPHOCYTES % (AUTO) 5.6 % (20.5-51.1); MEAN CORPUSCULAR HEMOGLOBIN 32 pg (27-31); MEAN CORPUSCULAR HGB CONC 33 g/dL (33-37); MEAN CORPUSCULAR VOLUME 97.8 fL (80-94); MONOCYTES # (AUTO) 0.5 K/uL (0.8-1.0); MONOCYTES % (AUTO) 4.2 % (1.7-9.3); NEUTROPHILS # (AUTO) 9.6 K/uL (1.8-7.7); NEUTROPHILS % (AUTO) 88.3 % (42.2-75.2); PLATELET COUNT (AUTO) 165 K/uL (140-450); RED BLOOD CELL COUNT(AUTO) 2.38 MIL/uL (4.20-6.10); RED CELL DISTRIBUTION WIDTH 20.9 % (11.6-13.7); WHITE BLOOD COUNT (AUTO) 10.9 K/uL (4.8-10.8)
[2020-09-16] MEDS ORDERED: ACETAMINOPHEN 325 MG TAB PO PRN (06:35)
--- NOTE | 2020-09-16 07:00 | NUR ---
RECHECKED BLOOD SUGAR 87.
--- NOTE | 2020-09-16 07:05 | NUR ---
REC'D REPORT FROM SENIOR RISK MANAGER NURSE, PT STABLE. TRACH TO VENT. BED LOWEST POSITION. NO SIGN OF DISTRESS
--- NOTE | 2020-09-16 07:38 | NUR ---
PT STABLE, NO DISTRESS, ALL NEEDS ATTENDED, BEDSIDE ENDORSEMENT GIVEN TO AM SHIFT RN FOR CONTINUITY OF CARE.
--- NOTE | 2020-09-16 07:48 | NUR ---
RECEIVED ON A [employer] MITCHELL VENTILATOR PLUGGED INTO RED OUTLET TOLERATING WELL WITHOUT ADVERSE REACTIONS NOTED TO A PORTEX DCT #7 AIRWAY SECURED WITH A MONIKA SNELL CUFF PRESSURE CHECKED NOTED AMBU BAG AT BEDSIDE LOC AWAKE GOOD EYE TRACKING NO APPARENT DISTRESS NOTED GOOD CHEST RISE DEEP TRACHEAL SUCTION FOR LARGE SEMI THICK PALE YELLOW SECRETIONS AIRWAY PATENT Addendum: 09/16/20 at 1225 by Mino Chaves RT MONIKA SNELL = PORTEX TRACH ALIS
--- NOTE | 2020-09-16 07:53 | NUR ---
REC'D CALL FROM PHARMACY PT GLUCOSE 37, CHECKED GLUCOSE FINGER STICK CURRENTLY 52, WILL ADMINISTER 50% DEXTROSE
--- NOTE | 2020-09-16 08:45 | NUR ---
SENT MESSAGE TO RE: PT'S HYPOGLYCEMIA, THIS MORNING 52,I HAVE ADMINISTERED DEXTROSE 50% VIA IV. D/T LOW GLUCOSE LEVELS. WILL WAIT FOR FURTHER INSTRUCTIONS.
[2020-09-16] MEDS: CYANOCOBALAMIN 100 MCG TAB GT SCH (09:00)
[2020-09-16] MEDS: SCOPOLAMINE 1.5 MG/72 HR PATCH TD SCH (09:00)
[2020-09-16] MEDS: COLISTIMETHATE SODIUM 150 MG in NACL 0.9% 100 ML IV SCH ×2 (09:00→21:35)
--- NOTE | 2020-09-16 09:24 | NUR ---
STABLE RESTING WELL NO EVIDENCE OF RESPIRATORY DISTRESS NOTED EQUAL CHEST RISE AIRWAY PATENT
--- NOTE | 2020-09-16 09:24 | NUR ---
SATURATION 100% ON FIO2 OF 40% PEEP 5cmH2O TITRATED FIO2 TO 35% CECILIA/RN NOTIFIED
--- NOTE | 2020-09-16 09:30 | NUR ---
SCOPOLAMINE 1.5MG PATCH ADMINISTERED BEHIND L.EAR. PT TOLERATED PROCEDURE WELL.
[2020-09-16] MEDS: FERROUS SULFATE 300 MG/5 ML UDC GT SCH (10:56)
[2020-09-16] MEDS: LABETALOL 200 MG TAB GT SCH ×2 (10:56→21:38)
[2020-09-16] MEDS: LEVOTHYROXINE 0.05 MG TAB GT SCH (10:56)
[2020-09-16] MEDS: VIT-B COMP/VIT-C/FOLIC ACID 1 TAB GT SCH (10:57)
[2020-09-16] MEDS: ZINC SULF 220 MG CAP GT SCH (10:57)
[2020-09-16] MEDS: ASCORBIC ACID 500 MG/5 ML ORASYR GT SCH ×2 (10:57→21:37)
--- NOTE | 2020-09-16 11:25 | NUR ---
FINGER GLUCOSE STICK 58, ADMINISTERED 50% DEXTROSE ,PT TOLERATED PROCEDURE WELL
--- NOTE | 2020-09-16 11:45 | NUR ---
SATURATION 100% ON FIO2 OF 40% PEEP 5cmH2O TITRATED FIO2 TO 35% CECILIA/RN NOTIFIED
--- NOTE | 2020-09-16 11:45 | NUR ---
RESTING WELL NO DISTRESS NOTED GOOD CHEST RISE DEP TRACHEAL SUCTION FOR LARGE SEMI THICK PALE YELLOW SECRETIONS AIRWAY PATENT
--- NOTE | 2020-09-16 12:44 | NUR ---
RECEIVED VERBAL ORDER FROM DR GILMORE TO DISCONTINUE RECTAL TUBE AND MAY USE RECTAL BAG IS APPLICABLE. WILL INPUT ORDER AND NOTIFY NURSE.
--- NOTE | 2020-09-16 12:51 | NUR ---
RESTING COMFORTABLY NO PULMONARY DISTRESS NOTED GOOD CHEST RISE AND AERATION THROUGHOUT BILATERAL LUNG MCCARTHY AIRWAY PATENT SATURATION 100% ON FIO2 OF 35% PEEP 5cmH2O TITRATED FIO2 TO 30% CECILIA/RN NOTIFIED
[2020-09-16] MEDS ORDERED: MAGNESIUM CITRATE 300 ML BTL PO SCH (12:54)
[2020-09-16] MEDS: THERAHONEY GEL 42.5 GM TP SCH (13:00)
[2020-09-16] MEDS: LACTULOSE 20 GM/30 ML UDC PO SCH ×2 (13:00→17:21)
[2020-09-16] MEDS: SENNA 8.6 MG TAB PO SCH ×2 (13:00→17:17)
--- NOTE | 2020-09-16 13:01 | NUR ---
NOTIFIED PHARMACY DR GILMORE GAVE RN VERBAL ORDER FOR D10NS AT 40 ML/H, UNABLE TO INPUT ORDER AND PHARMACY TO INPUT ORDER AND BRING MEDICATION TO PT. WILL NOTIFY NURSE TO FOLLOW UP.
--- NOTE | 2020-09-16 13:11 | NUR ---
PER ARNEL AT PHARMACY, WILL NEED TO OBTAIN VIALS FROM [facility] TO PROVIDE D10/NS ORDER PER
--- NOTE | 2020-09-16 13:51 | NUR ---
CHANGED FORMULA TO JEVITY 1.2 AT 60ML/HR
[2020-09-16] MEDS ORDERED: DEXTROSE 10% IV SCH (14:00)
[2020-09-16] MEDS ORDERED: NACL IV SCH (14:00)
--- NOTE | 2020-09-16 14:20 | NUR ---
09/16/20 RD FOLLOW UP COMPLETED PLEASE REFER TO NUTRITION ASSESSMENT UNDER CARE ACTIVITY FOR ESTIMATED NUTRITIONAL NEEDS. 1. CHANGED TUBE FEEDING TO JEVITY 1.2 @ 60 ML/HR X 24 HR -THIS WILL PROVIDE 1440 ML OF VOLUME, 1162 ML OF WATER, 1728 KCAL AND 80 GM OF PROTEIN. MEETING >85% OF ESTIMATED NUTRIENT NEEDS 2. CONTINUE FWF 100 ML Q6H (TO PROVIDE ADDITIONAL 400 ML) 3. CONSULT RDN PRN FOR ANY CHANGES 4. RD WILL F/U 2-3 DAYS; HIGH RISK. YARA ABARCA RD
--- NOTE | 2020-09-16 15:15 | NUR ---
NO EVIDENCE OF SOB NOTED EQUAL CHEST RISE DEEP TRACHEAL SUCTION FOR LARGE SEMI THICK YELLOW SECRETIONS AIRWAY PATENT SATURATION 100% ON FIO2 OF 30% PEEP 5cmH2O TITRATED FIO2 TO 28% CECILIA/RM MADE AWARE
--- NOTE | 2020-09-16 16:48 | NUR ---
FINGER GLUCOSE CHECK 33, ADMINISTERED 50% DEXTROSE. PT TOLERATED PROCEDURE WELL
[2020-09-16] MEDS ORDERED: DEXT 5% / NACL 0.9% 1,000 ML IV SCH (16:50)
--- NOTE | 2020-09-16 17:14 | NUR ---
RESTING WELL NO DISTRESS NOTED EQUAL CHEST RISE DEEP TRACHEAL SUCTION FOR MODERATE SEMI THICK YELLOW SECRETIONS AIRWAY PATENT
[2020-09-16] MEDS ORDERED: MAGNESIUM CITRATE 300 ML BTL ONE (17:19)
--- NOTE | 2020-09-16 17:44 | NUR ---
REMOVED RECTAL TUBE PER MD ORDER, 50ML/NS REMOVED FROM BALLOON, REMOVED STOOL COLLECTION TUBE INTACT. PT TOLERATED PROCEDURE WELL.
--- NOTE | 2020-09-16 17:45 | NUR ---
OCCULT BLOOD SPECIMEN COLLECTED AND SEN TO LAB FOR PROCESSING.
--- NOTE | 2020-09-16 17:49 | NUR ---
FINGER GLUCOSE CHECK 106
--- NOTE | 2020-09-16 19:20 | NUR ---
ENDORSED PT TO SENIOR WEB ARCHITECT NURSE FOR CONTINUITY OF CARE, PT STABLE. NO SIGN OF DISTRESS,
--- NOTE | 2020-09-16 20:00 | NUR ---
RECEIVED PATIENT AWAKE,ALERT ABLE TO NOD HEAD IF YOU ASKED THE PT SOMETHING. PATIENT ON TRACH TO VENT SETTING ORDERED, SATING 99%. NO SIGN AND SYMPTOMS OF DISTRESS NOTED AT THIS TIME. VSS, AFEBRILE. SR ON COIN BOX COLLECTOR, HR-76. IVF INFUSING ORDERED. GTF INFUSING ORDERED. RESIDUAL 5CC ONLY. HOB ELEVATED. CALL LIGHT WITHIN REACH. WIOLL CONTINUE POC AND MONITORING.
[2020-09-16] MEDS: MIRTAZAPINE 15 MG TAB GT SCH (21:37)
[2020-09-16] MEDS ORDERED: CRUSHER, PILL MC ONE (21:49)
--- NOTE | 2020-09-16 22:00 | NUR ---
ADMINISTERED ALL THE SCHEDULED MEDICATIONS ORDERED THROUGH G TUBE ORDERED. PATIENT TOLERATED IT WELL. WILL CONTINUE MONITORING.
[2020-09-17] VITALS (15 sets, daily range): BP systolic 114–159; BP diastolic 61–79
--- NOTE | 2020-09-17 | NUR ---
PT STILL AWAKE. VSS, AFEBRILE, SATING 100% ON TRACH TO VENT SETTING.
[2020-09-17] MEDS: HYDRAGUARD CREAM TP SCH ×2 (01:20→13:04)
--- NOTE | 2020-09-17 02:19 | NUR ---
PATIENT ASLEEP AT THIS TIME. VISIBLE CHEST RISE AND FALL NOTED. CALL LIGHT WITHIN REACH
--- NOTE | 2020-09-17 04:00 | NUR ---
VITAL SIGNS STABLE, AFEBRILE, SATING 100% ON TRACH TO VENT SETTING. NO COMPLAIN OF PAIN AT THIS TIME. SINUS RHYTHM ON GEOTHERMAL HEAT PUMP MACHINIST, HR-89.
[2020-09-17] MEDS: DILTIAZEM 60 MG TAB GT SCH ×3 (04:31→22:11)
[2020-09-17] MEDS: MEROPENEM 1,000 MG in NACL 0.9% 100 ML IV SCH ×3 (04:59→23:36)
--- NOTE | 2020-09-17 06:00 | NUR ---
NO ACUTE EVENTS THROUGHOUT THE NIGHT. PATIENT STABLE. NO COMPLAIN AT THIS TIME. WILL ENDORSE THE PT TO THE ONCOMING RN FOR CONTINUITY OF CARE. CALL LIGHT WITHIN REACH.
[2020-09-17] MEDS: BLOOD GLUCOSE MONITORING 1 DEV DEV FS SCH ×3 (06:38→18:40)
--- NOTE | 2020-09-17 07:15 | NUR ---
PT RESTING IN BED. EYES ARE CLOSED EASY TO AROUSE. BREATHING IS SYMMETRICAL AND UNLABORED. NO S/S OF DISTRESS. ALL SAFETY MEASURES ARE IN PLACE. WILL CONTINUE TO MONITOR.
--- NOTE | 2020-09-17 07:25 | NUR ---
RECEIVED ON A VIASYS VE;LA VENTILATOR PLUGGED INTO RED OUTLET TOLERATING WELL WITHOUT ANY COMPLICATIONS NOTED TO A JOSE RAUL DCT #7 AIRWAY SECURED WITH A MONIKA TRCH TIE CUFF PRESSURE CHECKED NOTED AMBU BAG AT BEDSIDE LOC RESTING WELL NO APPARENT PULMONARY DISTRESS NOTED EQUAL CHEST RISE DEEP TRACHEAL SUCTION FOR LARGE THIN YELLOW SECRETIONS AIRWAY PATENT
--- NOTE | 2020-09-17 07:39 | NUR ---
CHANGED MODE TO AC NOTED MAINTAINING PEAK PRESSURES AND EXPIRATORY Vt NOTED GOOD CHEST RISE AND AERATION THROUGHOUT BILATERAL,LUNG MCCARTHY AIRWAY SIWEI/RN NOTIFIED OF MODE CHANGE
[2020-09-17] MEDS: LEVOTHYROXINE 0.05 MG TAB GT SCH (09:00)
[2020-09-17] MEDS: ZINC SULF 220 MG CAP GT SCH (09:00)
[2020-09-17] MEDS: LABETALOL 200 MG TAB GT SCH ×2 (09:01→22:12)
[2020-09-17] MEDS: ASCORBIC ACID 500 MG/5 ML ORASYR GT SCH ×2 (09:01→22:12)
[2020-09-17] MEDS: VIT-B COMP/VIT-C/FOLIC ACID 1 TAB GT SCH (09:01)
[2020-09-17] MEDS: LACTULOSE 20 GM/30 ML UDC PO SCH ×3 (09:01→16:30)
[2020-09-17] MEDS: CYANOCOBALAMIN 100 MCG TAB GT SCH (09:01)
[2020-09-17] MEDS: SENNA 8.6 MG TAB PO SCH ×4 (09:01→17:00)
[2020-09-17] MEDS: COLISTIMETHATE SODIUM 150 MG in NACL 0.9% 100 ML IV SCH ×2 (09:02→22:27)
--- NOTE | 2020-09-17 09:03 | NUR ---
SCHEDULED MEDICATIONS GIVEN, PATIENT TOLERATED THE FEEDING WELL, NO RESIDUAL NOTED. FLUSH PROTOCOL FOLLOWED, HOB ELEVATED. TRACH TO VENT, NO ACUTE DISTRESS NOTED, WILL CONTINUE TO MONITOR.
--- NOTE | 2020-09-17 09:27 | NUR ---
NO EVIDENCE OF RESPIRATORY DISTRESS NOTED EQUAL CHEST RISE DEEP TRACHEAL SUCTION FOR MODERATE SEMI THICK YELLOW SECRETIONS AIRWAY PATENT
--- NOTE | 2020-09-17 10:15 | NUR ---
HANG NEW BOTTLE OF FEEDING FORMULA. G TUBE SITE CARE PERFORMED.
--- NOTE | 2020-09-17 10:55 | NUR ---
PATIENT'S IV SITES LEAKING, REMOVED BOTH IV, STARTED NEW ONE ON LEFT UPPER ARM FIRST ATTEMPT. PATIENT KEPT COMFORTABLE. WILL CONTINUE TO MONITOR.
--- NOTE | 2020-09-17 11:59 | NUR ---
PATIENT HAD ANOTHER EPISODE OF LOOSE BM. ASSISTED CORE DROPPER TO CLEAN AND CHANGED THE PATIENT. WOUND DRESSING CHANGED DUE TO SOILED. TURNED PATIENT TO RIGHT SIDE. TRACH SUCTION PERFORMED WITH MODERATE THICK WHITE SECRETION. HOB ELEVATED. O2 SAT 98-100%. SAFETY MEASURES IN PLACE, WILL CONTINUE TO MONITOR.
--- NOTE | 2020-09-17 13:05 | NUR ---
PATIENT RESTING IN BED IN RIGHT LATERAL POSITION COMFORTABLY. O2 SAT 97% WITH VENTILATOR VOLUME A/C FIO2 28%, HR 79. WILL CONTINUE TO MONITOR.
[2020-09-17] MEDS ORDERED: DEXT 5% /NACL 0.9% 1,000 ML IV SCH (13:10)
[2020-09-17] MEDS: THERAHONEY GEL 42.5 GM TP SCH (13:12)
--- NOTE | 2020-09-17 14:04 | NUR ---
RESTING WELL NO SOB NOTED GOOD CHEST RISE DEEP TRACHEAL SUCTION FOR MODERATE SEMI THICK YELLOW SECRETIONS AIRWAY PATENT
--- NOTE | 2020-09-17 14:22 | NUR ---
RAPID RESPONSE CALLED AT THIS TIME ATTENDING RESIDENTIAL LEASING MANAGER'S: Pinky CANTU; Zaid ROQUE
--- NOTE | 2020-09-17 14:32 | NUR ---
DR. LAINEZ WAS NOTIFIED REGARDING THE RAPID RESPONSE AND PATIENT'S CONDITION. DR. LANIEZ WILL CONTACT PATIENT'S FAMILY MEMBERS.
--- NOTE | 2020-09-17 14:48 | NUR ---
PAGED DR. STEPHEN RUELAS PAGED [phone] TO REVIEW [facility] SAMPLE REPORT RETURN NUMBER [phone]
--- NOTE | 2020-09-17 14:49 | NUR ---
CALL BACK FROM DR. STEPHEN RUELAS REVIEWED [facility] SAMPLE REPORT NO NEW ORDERS
[2020-09-17 15:00] LABS: ANION GAP 10.3 (8-16); CREATININE 1.3 mg/dL (0.6-1.3); POTASSIUM 4.3 mmol/L (3.5-5.1)
[2020-09-17 15:03] LABS: BASOPHILS % (AUTO) 0.2 % (0.0-2.0); EOSINOPHILS # (AUTO) 0.1 K/uL (0-0.4); EOSINOPHILS % (AUTO) 1.2 % (0.0-4.0); HEMATOCRIT 25.4 % (36-52); HEMOGLOBIN 8.3 g/dL (12.0-18.0); LYMPHOCYTES # (AUTO) 2.2 K/uL (2.0-11.5); LYMPHOCYTES % (AUTO) 24.7 % (20.5-51.1); MEAN CORPUSCULAR HEMOGLOBIN 32 pg (27-31); MEAN CORPUSCULAR HGB CONC 33 g/dL (33-37); MEAN CORPUSCULAR VOLUME 97.8 fL (80-94); MONOCYTES # (AUTO) 0.3 K/uL (0.8-1.0); MONOCYTES % (AUTO) 3.1 % (1.7-9.3); NEUTROPHILS # (AUTO) 6.2 K/uL (1.8-7.7); NEUTROPHILS % (AUTO) 70.8 % (42.2-75.2); PLATELET COUNT (AUTO) 160 K/uL (140-450); WHITE BLOOD COUNT (AUTO) 8.7 K/uL (4.8-10.8)
--- NOTE | 2020-09-17 16:11 | NUR ---
PT IN BED RESTING IN BED EYES ARE CLOSED. EASY TO AROUSE. NO S/S OF DISTRESS. PT REPOSITIONED. FLACC SCORE (0) ALL SAFETY MEASURES ARE IN PLACE. WILL CONTINUE TO MONITOR.
--- NOTE | 2020-09-17 16:57 | NUR ---
PATIENT RESTING IN BED, EYES CLOSED, O2 SAT 95%, HR 88. SAFETY MEASURES IN PLACE, WILL CONTINUE TO MONITOR.
--- NOTE | 2020-09-17 17:28 | NUR ---
NO DISTRESS NOTED GOOD CHEST RISE DEEP TRACHEAL SUCTION FOR SMALL THI PALE YELLOW SECRETIONS AIRWAY PATENT
[2020-09-17] MEDS ORDERED: DEXTROSE 50% 50 ML SYR IVP PRN (18:45)
--- NOTE | 2020-09-17 19:37 | NUR ---
PT ENDORSED TO DRIVE THRU ORDER TAKER FOR CONTINUITY OF CARE. PT IS STABLE.
--- NOTE | 2020-09-17 20:00 | NUR ---
RECEIVED REPORT AT BEDSIDE FOR CONTINUITY OF CARE, PT IN STABLE CONDITION. PT IS AOX3 AND TUNISIAN SPEAKING, PT MOUTHS THE WORDS. HE IS A TRACH TO VENT WITH FOLLOWING SETTINGS:FI02 28 TV 450 RR 18 PEEP OF 5.RESPIRATIONS EVEN AND UNLABORED WITH VENT 02 98%. OTHER V/S FOLLOWS: T 98.5 P 94 20 B/P 155/72 02 98%PT HAS D5 N/S AT 50MLS /HR VIA R FA 22G. PT HAS STAGE SACRAL WOUND DRESSING DRY AND INTACT NO S/S OF PAIN OR DISTRESS NOTED.
--- NOTE | 2020-09-17 21:30 | NUR ---
SPOKE WITH PT POINT OF CONTACT GRANDDAUGHTER SANJEEV UPDATED HER ON PT CONDITION. PT RECEIVED ALL DUE MEDS EDUCATION REGARDING MEDICATION PROVIDED AT BEDSIDE PT UNABLE TO VERBALIZED UNDERSTANDING. PT FEEDING TUBE RUNNING JEVITY 1.2 RUNNING ORDERED. D5N/S RUNNING ORDERED. PT TURNED AND REPOSITIONED IN BED ALL ORDERED PRECAUTIONS IN PLACE.
[2020-09-17] MEDS: MIRTAZAPINE 15 MG TAB GT SCH (22:12)
[2020-09-18] VITALS (13 sets, daily range): BP systolic 133–172; BP diastolic 61–79
--- NOTE | 2020-09-18 | NUR ---
PT IN BED V/S FOLLOWS: T 98.6 P 79 B/P 133/64 02 98%;PT WAS TURNED AND REPOSITIONED IN BED.
[2020-09-18] MEDS: INSULIN LISPRO SLIDING SCALE 100 UNITS/ML VIAL SUBQ PRN ×4 (00:18→18:31)
[2020-09-18] MEDS: HYDRAGUARD CREAM TP SCH ×2 (01:00→13:04)
--- NOTE | 2020-09-18 04:00 | NUR ---
PT WAS TURNED , CHANGED AND REPOSITIONED IN BED V/S FOLLOWS: T 98.2 P 79 R 18 B/P 160/73 02 98% ON ALL CURRENT VENT SETTINGS. FAULKNER CATHETER EMPTIED LIGHT YELLOW URINE NOTED. BM X1
--- NOTE | 2020-09-18 05:30 | NUR ---
NAM HUNG AND RUNNING ORDERED.
[2020-09-18 06:12] LABS: BASOPHILS % (AUTO) 0.3 % (0.0-2.0); EOSINOPHILS # (AUTO) 0.1 K/uL (0-0.4); EOSINOPHILS % (AUTO) 1.1 % (0.0-4.0); HEMATOCRIT 22.2 % (36-52); HEMOGLOBIN 7.3 g/dL (12.0-18.0); LYMPHOCYTES # (AUTO) 0.5 K/uL (2.0-11.5); LYMPHOCYTES % (AUTO) 7.7 % (20.5-51.1); MEAN CORPUSCULAR HEMOGLOBIN 32 pg (27-31); MEAN CORPUSCULAR HGB CONC 33 g/dL (33-37); MEAN CORPUSCULAR VOLUME 97.1 fL (80-94); MONOCYTES # (AUTO) 0.2 K/uL (0.8-1.0); MONOCYTES % (AUTO) 4.3 % (1.7-9.3); NEUTROPHILS # (AUTO) 5.1 K/uL (1.8-7.7); NEUTROPHILS % (AUTO) 86.6 % (42.2-75.2); PLATELET COUNT (AUTO) 152 K/uL (140-450); RED BLOOD CELL COUNT(AUTO) 2.29 MIL/uL (4.20-6.10); RED CELL DISTRIBUTION WIDTH 19.9 % (11.6-13.7); WHITE BLOOD COUNT (AUTO) 5.9 K/uL (4.8-10.8)
[2020-09-18 06:17] LABS: ANION GAP 8.5 (8-16); CARBON DIOXIDE 35.4 mmol/L (21-32); CREATININE 1.2 mg/dL (0.6-1.3); POTASSIUM 3.9 mmol/L (3.5-5.1)
[2020-09-18 06:21] LABS: MAGNESIUM 2.4 mg/dL (1.8-2.4); PHOSPHORUS 3.8 mg/dL (2.5-4.9)
--- NOTE | 2020-09-18 06:35 | NUR ---
FINGERSTICK IS 261, 6 UNITS OF HUMALOG COVERAGE GIVEN PER S/S. PT REPOSITIONED IN BED.
[2020-09-18] MEDS: BLOOD GLUCOSE MONITORING 1 DEV DEV FS SCH ×4 (06:41→18:29)
[2020-09-18] MEDS: DILTIAZEM 60 MG TAB GT SCH ×3 (06:48→21:52)
[2020-09-18] MEDS: MEROPENEM 1,000 MG in NACL 0.9% 100 ML IV SCH ×3 (06:49→21:54)
--- NOTE | 2020-09-18 07:19 | NUR ---
RECEIVED ON A [employer] MITCHELL VENTILATOR PLUGGED INTO RED OUTLET TOLERATING WELL WITHOUT COMPLICATIONS NOTED EMILI YO DCT #7 AIRWAY SECURED WITH A MONIKA TRACH TIE CUFF PRESSURE CHECKED NOTED AMBU BGA AT BEDSIDE LOC AWAKE AND ALERT RESPONSIVE TO TOURIST INFORMATION ASSISTANT VERBAL COMMANDS BY "NODDING OF HEAD AND BLINKING OF EYES" EQUAL CHEST RISE DEEP TRACHEAL SUCTION FOR SMALL SEMI THICK PALE YELLOW SECRETIONS GOOD AERATION THROUGHOUT BILATERAL LUNG MCCARTHY AIRWAY PATENT Addendum: 09/18/20 at 0743 by Mino Chaves RT TOA = TO A
--- NOTE | 2020-09-18 07:30 | NUR ---
RECEIVED REPORT FROM WELDER/INSTALLER RN FOR CONTINUITY OF CARE. PATIENT RESTING IN BED, AWAKE. NO ACUTE RESPIRATORY DISTRESS WITH TRACH TO VENT. IV SITE TO LEFT UPPER ARM 20G INFUSING D5 NS@ 50ML/HR. HR 73. O2 SAT 96%. FAULKNER CATHETER IN PLACE. INCONTINENT. SACRAL WOUND NOTED DRESSING INTACT. NO ACUTE DISTRESS NOTED AT THIS TIME. WILL CONTINUE TO MONITOR.
[2020-09-18] MEDS: SENNA 8.6 MG TAB PO SCH ×3 (09:00→17:00)
[2020-09-18] MEDS: LACTULOSE 20 GM/30 ML UDC PO SCH ×3 (09:00→17:00)
[2020-09-18] MEDS: COLISTIMETHATE SODIUM 150 MG in NACL 0.9% 100 ML IV SCH ×2 (09:00→21:55)
[2020-09-18] MEDS: ZINC SULF 220 MG CAP GT SCH (09:01)
[2020-09-18] MEDS: LEVOTHYROXINE 0.05 MG TAB GT SCH (09:01)
[2020-09-18] MEDS: VIT-B COMP/VIT-C/FOLIC ACID 1 TAB GT SCH (09:01)
[2020-09-18] MEDS: ASCORBIC ACID 500 MG/5 ML ORASYR GT SCH ×2 (09:02→21:51)
[2020-09-18] MEDS: CYANOCOBALAMIN 100 MCG TAB GT SCH (09:03)
[2020-09-18] MEDS: LABETALOL 200 MG TAB GT SCH ×2 (09:04→21:52)
[2020-09-18] MEDS: NACL 0.9% 1,000 ML IV SCH (09:29)
--- NOTE | 2020-09-18 09:41 | NUR ---
AWAKE AND ALERT VERBALLY RESPONSIVE TO TRUCK RENTAL SERVICE ATTENDANT "WATCHING TELEVISION" AT THIS TIME EQUAL CHEST RISE GOOD AERATION THROUGHOUT BILATERAL LUNG MCCARTHY AIRWAY PATENT
--- NOTE | 2020-09-18 11:18 | NUR ---
ASSISTED REROLLING MACHINE OPERATOR TO CLEAN AND CHANGE THE PATIENT. REPOSITED THE PATIENT TO RIGHT LATERAL POSITION. PERFORMED TRACH SUCTION WITH NO SECRETION. O2 SAT 100%. HR 71, NO ACUTE DISTRESS NOTED, WILL CONTINUE TO MONITOR.
--- NOTE | 2020-09-18 11:35 | NUR ---
RESTING WELL NO DISTRESS NOTED GOOD CHEST RISE Addendum: 09/18/20 at 1204 by Mino Chaves RT DEEP TRACHEAL SUCTION FOR MODERATE SEMI THICK YELLOW SECRETIONS AIRWAY PATENT
[2020-09-18] MEDS: THERAHONEY GEL 42.5 GM TP SCH (13:04)
--- NOTE | 2020-09-18 13:17 | NUR ---
PATIENT ASLEEP COMFORTABLY IN BED. O2 SAT 99%, HR 69. SAFETY MEASURES IN PLACE, WILL CONTINUE TO MONITOR.
--- NOTE | 2020-09-18 13:47 | NUR ---
RESTING COMFORTABLY NO APPARENT DISTRESS NOTED EQUAL CHEST RISE NO ENDOTRACHEAL SUCTION AT THIS TIME
--- NOTE | 2020-09-18 15:45 | NUR ---
STABLE EQUAL CHEST RISE DEEP TRACHEAL SUCTION FOR SMALL SEMI THICK YELLOW SECRETIONS AIRWAY PATENT
--- NOTE | 2020-09-18 16:28 | NUR ---
LUCIE INSERTED PER MD ORDER. PATIENT TOLERATED WELL. STRICT I&O PER MD ORDER. WILL CONTINUE TO MONITOR. Addendum: 09/18/20 at 1820 by Lauren Vela RN WRONG PATIENT, WRONG DOCUMENTATION.
--- NOTE | 2020-09-18 17:35 | NUR ---
STABLE NO DISTRESS NOTED GOOD CHEST RISE AND AERATION THROUGHOUT BILATERAL LUNG MCCARTHY AIRWAY PATENT
--- NOTE | 2020-09-18 18:31 | NUR ---
4 UNITS OF HUMALOG GIVEN FOR BS LEVEL 232. PATIENT'S O2 SAT 98%. HR 82. NO ACUTE DISTRESS NOTED. WILL CONTINUE TO MONITOR.
--- NOTE | 2020-09-18 19:18 | NUR ---
ENDORSED PATIENT TO STATIONARY FIREMAN RN ALLEGRA FOR CONTINUITY OF CARE. PATIENT IN STABLE CONDITION. NO RESPIRATORY DISTRESS THE WHOLE SHIFT.
--- NOTE | 2020-09-18 21:03 | NUR ---
RECEIVED PATIENT ON VENT VIA TRACH, AC MODE WITH RATE OF 18, TV 450 , 28% FIO2 PEEP 5, ON GT FEEDING WITH JEVITY 60 ML/HR, NS AT 20 ML/HR AT QUIANA, FAULKNER CATH IN PLACE AND DRAINING TO GRAVITY, ON CONTACT ISOLATION. WILL CONTINUE TO MONITOR.
[2020-09-18] MEDS: MIRTAZAPINE 15 MG TAB GT SCH (21:53)
[2020-09-19] VITALS (8 sets, daily range): BP systolic 127–167; BP diastolic 61–83
--- NOTE | 2020-09-19 | NUR ---
PATIENT REQUIRES MAXIMAL CARE 2 PERSON ASSISTANCE, CHANGED AND REPOSITIONED IN BED V/S FOLLOWS:CONTINUED ON ALL CURRENT VENT SETTINGS. PATIENT SEEN AND EVALUATED BY RT. NO RESPIRATORY DISTRESS NOTED. FAULKNER CATHETER DRAINING LIGHT YELLOW URINE IN BAG. BM X1. . SUCTION AND DRESSING CHANGED. MAXIMAL CARE RENDERED. NO ACUTE DISTRESS NOTED.
--- NOTE | 2020-09-19 | NUR ---
HUMALOG 2 UNITS SQ GIVEN PER SLIDING SCALE FOR BS 226.
[2020-09-19] MEDS: HYDRAGUARD CREAM TP SCH ×2 (01:04→14:28)
[2020-09-19] MEDS: INSULIN LISPRO SLIDING SCALE 100 UNITS/ML VIAL SUBQ PRN ×5 (01:05→23:09)
--- NOTE | 2020-09-19 03:00 | NUR ---
REPORT GIVEN TO LULÚ FOR CONTINUITY OF CARE.
[2020-09-19] MEDS: DILTIAZEM 60 MG TAB GT SCH ×3 (05:59→20:34)
[2020-09-19] MEDS: MEROPENEM 1,000 MG in NACL 0.9% 100 ML IV SCH ×3 (05:59→20:35)
[2020-09-19 06:04] LABS: ANION GAP 9.3 (8-16); CARBON DIOXIDE 33.5 mmol/L (21-32); CREATININE 1.2 mg/dL (0.6-1.3); POTASSIUM 3.8 mmol/L (3.5-5.1)
[2020-09-19 06:19] LABS: BASOPHILS % (AUTO) 0.2 % (0.0-2.0); EOSINOPHILS # (AUTO) 0.1 K/uL (0-0.4); EOSINOPHILS % (AUTO) 1.2 % (0.0-4.0); HEMATOCRIT 23.5 % (36-52); HEMOGLOBIN 7.7 g/dL (12.0-18.0); LYMPHOCYTES # (AUTO) 0.4 K/uL (2.0-11.5); LYMPHOCYTES % (AUTO) 7.6 % (20.5-51.1); MEAN CORPUSCULAR HEMOGLOBIN 32 pg (27-31); MEAN CORPUSCULAR HGB CONC 33 g/dL (33-37); MEAN CORPUSCULAR VOLUME 96.5 fL (80-94); MONOCYTES # (AUTO) 0.3 K/uL (0.8-1.0); MONOCYTES % (AUTO) 5.2 % (1.7-9.3); NEUTROPHILS % (AUTO) 85.8 % (42.2-75.2); PLATELET COUNT (AUTO) 154 K/uL (140-450); RED BLOOD CELL COUNT(AUTO) 2.43 MIL/uL (4.20-6.10); RED CELL DISTRIBUTION WIDTH 19.9 % (11.6-13.7); WHITE BLOOD COUNT (AUTO) 5.8 K/uL (4.8-10.8)
[2020-09-19] MEDS: BLOOD GLUCOSE MONITORING 1 DEV DEV FS SCH ×5 (06:55→23:10)
--- NOTE | 2020-09-19 07:20 | NUR ---
RECEIVED REPORT FROM NIGHT NURSE FOR CONTINUITY OF CARE. PT IS STABLE, TRACH TO VENT. AC 450, PEEP5, FIO2: 28 AND RR 18. PT HAS FAULKNER CATH. PT HAS QUIANA 20G INFUSING NS AT 20. PT HAS G-TUBE INFUSING JEVITY AT 60ML/H WITH WATER FLUSH OF 100 Q6H. PT ON CONTACT ISOLATION, SAFETY MEASURES IN PLACE, WILL CONTINUE TO MONITOR.
[2020-09-19] MEDS: NACL 0.9% 1,000 ML IV SCH (08:50)
[2020-09-19] MEDS: ASCORBIC ACID 500 MG/5 ML ORASYR GT SCH ×2 (09:09→20:33)
[2020-09-19] MEDS: LACTULOSE 20 GM/30 ML UDC PO SCH ×5 (09:09→20:33)
[2020-09-19] MEDS: SENNA 8.6 MG TAB PO SCH ×3 (09:10→17:38)
[2020-09-19] MEDS: LABETALOL 200 MG TAB GT SCH ×2 (09:11→20:34)
[2020-09-19] MEDS: ZINC SULF 220 MG CAP GT SCH (09:11)
[2020-09-19] MEDS: VIT-B COMP/VIT-C/FOLIC ACID 1 TAB GT SCH (09:11)
[2020-09-19] MEDS: LEVOTHYROXINE 0.05 MG TAB GT SCH (09:11)
[2020-09-19] MEDS: CYANOCOBALAMIN 100 MCG TAB GT SCH (09:15)
[2020-09-19] MEDS: SCOPOLAMINE 1.5 MG/72 HR PATCH TD SCH (09:17)
[2020-09-19] MEDS: COLISTIMETHATE SODIUM 150 MG in NACL 0.9% 100 ML IV SCH ×2 (09:56→20:42)
--- NOTE | 2020-09-19 10:02 | NUR ---
ADMINISTERED SCHEDULED MEDICATION, MEDICATION EDUCATION PROVIDED. HELPED WOUND NURSE WITH WOUND CARE. PT TOLERATED WELL. WELL CONTINUE TO MONITOR.
--- NOTE | 2020-09-19 10:30 | NUR ---
WOUND CARE RE-EVALUATION NOTE: SKIN ASSESSMENT DONE WITH PRIMARY RN. PT. IS INCONTINENT OF BOWEL WATERY LOOSE STOOL, PER PRIMARY RN. PT IS ON LACTULOSE AND PER DR. GILMORE TO APPLY RECTAL BAG. YANIQUE ANAL SKIN RED, MOIST WITH DENUDED SKIN, RECTAL BAG APPLIED BUT MAY NOT STAY, POC DISCUSSED WITH PRIMARY RN TO MONITOR PLACEMENT OF THE BAG AND PER PRIMARY RN SHE WILL CONTACT DR. GILMORE IF RECTAL TUBE NEEDED. INTEGUMENTARY: -COCCYX DTI 3X2CM,100% MAROON, NO ODOR, NO CHANGE. YANIQUE WOUND SKIN TO SACRUM STAGE 3 PI IMPROVEMENT NOTICED -SACRUM PRESSURE INJURY STAGE 3, 8X6X0.1CM WOUND BED 100% GRANULATING TISSUE, WOUND BED MOIST, NO ODOR, YANIQUE-WOUND SKIN INTACT, BLANCHABLE REDNESS. -MAD IMPROVING TO GROINS, SCROTAL AREA SKIN MOIST AND INTACT -MAD YANIQUE ANAL SKIN RED, MOIST WITH DENUDED SKIN RECOMMENDATIONS -APPLY RECTAL BAG QD AND PRN IF DISLODGED. -CLEANSE SACRALCOCCYX WOUND WITH WOUND CARE SOLUTION, PAT DRY APPLY THERAHONEY GEL TO WOUND BED, COVER WITH DRY DRESSING CHANGE QD AND PRN IF SOILING, OFFLOADING AT ALL TIMES -APPLY HYDRAGUARD TO GROINS, SCROTAL AREA AND YANIQUE-ANAL MAD BID AND PRN IF SOILING -TURN AND REPOSITION PATIENT Q 2H -ASSESS AND MONITOR SKIN CONDITION DURING POSITION CHANGE -OFFLOAD BILATERAL HEELS BY PLACING PILLOWS UNDER CALVES AT ALL TIMES, UNLESS OTHERWISE CONTRAINDICATED -PRESSURE REDISTRIBUTION BY PLACING PILLOWS AND OFFLOADING HIPS AND SACRALCOCCYX -KEEP SKIN CLEAN AND DRY AT ALL TIMES.
--- NOTE | 2020-09-19 11:11 | NUR ---
OBTAINED CONSENT FROM SANJEEV GONZALES FOR PT TO HAVE EGD AND COLONOSCOPY. UPDATED FAMILY ON PT PLAN OF CARE.
--- NOTE | 2020-09-19 12:35 | NUR ---
ADMINISTERED 2 UNITS OF HUMALOG FOR BLOOD GLUCOSE: 163, ADMINISTERED SCHEDULED MEDICATION, MEDICATION EDUCATION PROVIDED. PT NODDED UNDERSTANDING, PT TOLERATED WELL. PT IS STABLE, WILL CONTINUE TO MONITOR.
[2020-09-19] MEDS: THERAHONEY GEL 42.5 GM TP SCH (14:27)
--- NOTE | 2020-09-19 15:31 | NUR ---
09/19/20 RD FOLLOW UP COMPLETED PLEASE REFER TO NUTRITION ASSESSMENT UNDER CARE ACTIVITY FOR ESTIMATED NUTRITIONAL NEEDS. 1. CONTINUE JEVITY 1.2 @ 60 ML/HR X 24 HR -THIS WILL PROVIDE 1440 ML OF VOLUME, 1162 ML OF WATER, 1728 KCAL AND 80 GM OF PROTEIN. MEETING >85% OF ESTIMATED NUTRIENT NEEDS 2. CONTINUE FWF 100 ML Q6H (TO PROVIDE ADDITIONAL 400 ML). 3. CONSULT RDN PRN FOR ANY CHANGES 4. RD WILL F/U 2-3 DAYS; HIGH RISK. YARA ABARCA RD
[2020-09-19] MEDS: POLYETHYLENE GLYCOL 17 GM/PKT PO SCH (17:38)
--- NOTE | 2020-09-19 17:49 | NUR ---
ADMINISTERED SCHEDULED MEDICATION, MEDICATION EDUCATION PROVIDED. PT TOLERATED WELL. PT IS STABLE, WILL CONTINUE TO MONITOR.
--- NOTE | 2020-09-19 18:13 | NUR ---
ADMINISTERED 2 UNITS OF HUMALOG FOR BLOOD GLUCOSE 173. MEDICATION EDUCATION PROVIDED. PT TOLERATED WELL. WILL CONTINUE TO MONITOR.
--- NOTE | 2020-09-19 19:15 | NUR ---
RECEIVE BEDSIDE REPORT FROM DAY SHIFT NURSE. PATIENT IS AWAKE, RESPIRATION EVEN UNLABORED ON TRACH TO VENT. VENT SETTING VT 450, FIO2 28% RR 18, AND PEEP OF 5. NO DISTRESS NOTED. SKIN IS WARM AND DRY. IV PATENT AND INTACT. FAULKNER CATHETER DRAINING YELLOW URINE NOTED. G-TUBE FEEDING NOTED RUNNING AT 60CC. PLAN OF CARE WAS DISCUSSED. ALL SAFETY MEASURES IN PLACE. BED IS AT LOW POSITION. CALL LIGHT WITHIN REACH. WILL CONTINUE TO MONITOR
--- NOTE | 2020-09-19 19:17 | NUR ---
ENDORSE PT TO NIGHT NURSE FOR CONTINUITY OF CARE.
--- NOTE | 2020-09-19 20:05 | NUR ---
INITIAL ASSESSMENT DONE. SACRAL WOUND NOTED. CHECK G-TUBE RESIDUAL OBTAINED 5CC. PATIENT IS TOLERATING G-TUBE FEEDING. WILL CONTINUE TO MONITOR
[2020-09-19] MEDS: MIRTAZAPINE 15 MG TAB GT SCH (20:34)
--- NOTE | 2020-09-19 20:35 | NUR ---
ALL SCHEDULED MEDS WERE GIVEN PER ORDER. WILL CONTINUE TO MONITOR.
[2020-09-19] MEDS ORDERED: SUPREP BOWEL PREP KIT 354 ML SOLN.RECON PO ONE (21:00)
--- NOTE | 2020-09-19 21:30 | NUR ---
MD ORDER SUPER BOWL PREP, SUPER BOWEL PREP GIVEN, WILL CONTINUE TO MONITOR
--- NOTE | 2020-09-19 22:32 | NUR ---
SUCTIONED PATIENT. NO SECRETION OBTAINED. PROVIDED ORAL CARE. WILL CONTINUE TO MONITOR
[2020-09-20] VITALS (7 sets, daily range): BP systolic 113–169; BP diastolic 54–81
[2020-09-20] MEDS: HYDRAGUARD CREAM TP SCH ×2 (01:09→12:24)
--- NOTE | 2020-09-20 01:20 | NUR ---
PROVIDED WOUND CARE
[2020-09-20] MEDS: MEROPENEM 1,000 MG in NACL 0.9% 100 ML IV SCH ×2 (04:26→12:23)
--- NOTE | 2020-09-20 04:36 | NUR ---
MORNING CARE PROVIDED
[2020-09-20] MEDS: DILTIAZEM 60 MG TAB GT SCH ×3 (04:45→20:13)
[2020-09-20 05:31] LABS: BASOPHILS % (AUTO) 0.3 % (0.0-2.0); EOSINOPHILS # (AUTO) 0.1 K/uL (0-0.4); EOSINOPHILS % (AUTO) 1.1 % (0.0-4.0); HEMATOCRIT 24.1 % (36-52); HEMOGLOBIN 7.9 g/dL (12.0-18.0); LYMPHOCYTES # (AUTO) 0.4 K/uL (2.0-11.5); LYMPHOCYTES % (AUTO) 6.2 % (20.5-51.1); MEAN CORPUSCULAR HEMOGLOBIN 32 pg (27-31); MEAN CORPUSCULAR HGB CONC 33 g/dL (33-37); MEAN CORPUSCULAR VOLUME 96.4 fL (80-94); MONOCYTES # (AUTO) 0.3 K/uL (0.8-1.0); MONOCYTES % (AUTO) 4.2 % (1.7-9.3); NEUTROPHILS # (AUTO) 5.9 K/uL (1.8-7.7); NEUTROPHILS % (AUTO) 88.2 % (42.2-75.2); PLATELET COUNT (AUTO) 168 K/uL (140-450); RED CELL DISTRIBUTION WIDTH 19.4 % (11.6-13.7); WHITE BLOOD COUNT (AUTO) 6.7 K/uL (4.8-10.8)
[2020-09-20] MEDS: BLOOD GLUCOSE MONITORING 1 DEV DEV FS SCH ×4 (06:18→23:56)
--- NOTE | 2020-09-20 06:19 | NUR ---
PATIENT LAST BM SOFT WATERY YELLOW STOOL.
[2020-09-20 06:36] LABS: ANION GAP 10.2 (8-16); CARBON DIOXIDE 33.3 mmol/L (21-32); CREATININE 1.2 mg/dL (0.6-1.3); POTASSIUM 3.5 mmol/L (3.5-5.1)
--- NOTE | 2020-09-20 07:04 | NUR ---
REC'D PT ON MITCHELL VENT SETTINGS AC 18 VT 450 PEEP 5 FIO2 24% ALARMS ON AND AUDIBLE AND VENT IS PLUGGED INTO RED OUTLET, BVM AT [facility] SXN PT SMALL AMT OF YELLOW SECRETION B\S ARE DIMINISHED BILATERALLY, PT IS TRACH WITH PORTEX 7 AND PT IS RESTING WILL CONTINUE TO MONITOR PT
--- NOTE | 2020-09-20 07:38 | NUR ---
ENDORSED PATIENT TO DAY SHIFT NURSE FOR CONTINUITY OF CARE
--- NOTE | 2020-09-20 07:39 | NUR ---
RECEIVED PT ENDORSEMENT AT THIS TIME. PT IS STABLE LAYING IN BED REMAINS ON TRACH TO VENT ON FIO2 25% SPOE 98%. WILL CONTINUE WITH POC.
[2020-09-20] MEDS: NACL 0.9% 1,000 ML IV SCH (08:50)
[2020-09-20] MEDS: LABETALOL 200 MG TAB GT SCH ×2 (09:46→20:14)
[2020-09-20] MEDS: VIT-B COMP/VIT-C/FOLIC ACID 1 TAB GT SCH (09:46)
[2020-09-20] MEDS: ZINC SULF 220 MG CAP GT SCH (09:46)
[2020-09-20] MEDS: LEVOTHYROXINE 0.05 MG TAB GT SCH (09:46)
[2020-09-20] MEDS: POLYETHYLENE GLYCOL 17 GM/PKT PO SCH ×2 (09:47→12:23)
[2020-09-20] MEDS: ASCORBIC ACID 500 MG/5 ML ORASYR GT SCH ×2 (09:47→20:12)
[2020-09-20] MEDS: LACTULOSE 20 GM/30 ML UDC PO SCH ×2 (09:47→12:23)
[2020-09-20] MEDS: SENNA 8.6 MG TAB PO SCH ×2 (09:47→12:23)
[2020-09-20] MEDS: COLISTIMETHATE SODIUM 150 MG in NACL 0.9% 100 ML IV SCH ×2 (09:55→20:14)
[2020-09-20] MEDS: CYANOCOBALAMIN 100 MCG TAB GT SCH (09:55)
--- NOTE | 2020-09-20 09:55 | NUR ---
SCHEDULED MEDICATION GIVEN TOLERATED WELL. DENIES ANY DISTRESS. LUNG SOUNDS DIMINISHED ABD IS FLAT,, SOFT AND NONTENDER WITH ACTIVE BS X 4. INTACT PICC LINE ACCESS TO LEFT FOREARM. PT IS AWAKE, APHASIC HOWEVER CAN MOUTH CERTAIN WANTS AND NEEDS. SECOND BOWEL PREP GIVEN. GT FEEDING REMAINS ON HOLD. WILL CONTINUE WITH POC. SAFETY MEASURES IN PLACE.
--- NOTE | 2020-09-20 10:30 | NUR ---
PER KOBY-RN ASSIGNED, PT HAD LOOSE YELLOW STOOLS THIS MORNING. UPDATED DR. GILMORE OVER THE PHONE. STATED HE WILL PERFORM THE EGD AND COLONOSCOPY AT 2PM TODAY. OR STAFF MADE AWARE.
--- NOTE | 2020-09-20 10:44 | NUR ---
RESTING IN BED IN NO DISTRESS.
[2020-09-20] MEDS: THERAHONEY GEL 42.5 GM TP SCH (12:24)
--- NOTE | 2020-09-20 12:30 | NUR ---
PROVISION OF CARE PROVIDED. PT HAVING WATER STOOL. BS 106 NO COVERAGE NEEDED. PT REMAINS ON NPO TREATMENT CARE PROVIDED.
[2020-09-20] MEDS ORDERED: diphenhydrAMINE 50 MG/ML VIAL ONE (13:31)
[2020-09-20] MEDS ORDERED: MIDAZOLAM 5 MG/5 ML VIAL ONE (13:31)
[2020-09-20] MEDS ORDERED: fentaNYL citrate 0.05 MG/ML VIAL ONE (13:31)
--- NOTE | 2020-09-20 14:11 | NUR ---
PT IN BED OR STAFF IN HIS ROOM PREPARING FOR COLONOSCOPY AND EGD.
[2020-09-20] MEDS ORDERED: MIDAZOLAM 2 MG/2 ML VIAL IVP ONE (15:45)
[2020-09-20] MEDS ORDERED: fentaNYL citrate 0.05 MG/ML VIAL IVP ONE (15:45)
[2020-09-20] MEDS ORDERED: POTASSIUM CHLORIDE 20% 40 MEQ/15 ML UDC GT SCH (16:00)
--- NOTE | 2020-09-20 16:00 | NUR ---
COLONOSCOPY AND EGD COMPLETE TOLERATED WELL, PER REPORT NORMAL UPPER GI AND RECTAL ULCER BIOPSY DONE. FAMILY SANJEEV UPDATED ON PTS CONDITION. PT IS RESTING IN BED REMAINS ON FIO2 28 % AT 96%. SPO2. Addendum: 09/20/20 at 1833 by Myrna Pinto RN BS 116 NO COVERAGE NEEDED.
[2020-09-20] MEDS ORDERED: FERROUS SULFATE 325 MG TABEC PO SCH (17:00)
--- NOTE | 2020-09-20 18:33 | NUR ---
GT FEEDING RESUMED TOLERATING WELL.
--- NOTE | 2020-09-20 19:10 | NUR ---
RECEIVED BEDSIDE REPORT FROM DAY SHIFT NURSE FOR CONTINUITY OF CARE. PT IS SLEEPING IN SEMI FOWLERS POSITION. NO RESPIRATORY DISTRESS NOTED. TRACH TO VENT WITH O2 SAT AT 91%. FIO2 28%, RT 18, VT 450, AND PEEP 5. PT ON TELE MONITORING, SR CURRENTLY. G TUBE IN PLACE WITH FEEDING RUNNING GLUCERNA 1.2 AT 60 ML PER HOUR PER ORDER. WATER FLUSHES 150 ML Q4H. SKIN IS WARM AND DRY. SACRAL WOUND OPEN AND OPTIFOAM IN PLACE. WILL ASSESS AND CHANGE DRESSING WHEN SOILED. IV IS IN THE LEFT UA 20 GAUGE RUNNING NS AT 20 ML PER HOUR PER ORDER. PLAN OF CARE DISCUSSED. PT IS STABLE AT THIS TIME.
[2020-09-20] MEDS: FERROUS SULFATE 300 MG/5 ML UDC GT SCH (20:12)
[2020-09-20] MEDS: MIRTAZAPINE 15 MG TAB GT SCH (20:13)
--- NOTE | 2020-09-20 20:13 | NUR ---
LABETOLOL WAS NOT GIVEN ORDERED, BUT CARDIZEM WAS GIVEN ORDERED. BP WAS 118/54 AND HR WAS 67. HR WAS TOO LOW TO GIVE BOTH MEDICATIONS. WILL CONTINUE TO MONITOR PT'S BP AND HR.
--- NOTE | 2020-09-20 22:00 | NUR ---
G TUBE RESIDUAL IS LESS THAN 5ML. SR ON TELE MONITORING. IV IS PATENT AND INFUSING ORDERED. PT HAD A BM AND WAS CHANGED. NEW DIAPER NOW IN PLACE. FAULKNER CATHETER IN PLACE WITH CLEAR, YELLOW URINE. NO RESPIRATORY DISTRESS NOTED. TRACH TO VENT WITH O2 SAT AT 98%. PT IS STABLE AT THIS TIME.
--- NOTE | 2020-09-20 23:23 | NUR ---
PT WAS REPOSITIONED. DIAPER IS DRY AND IN PLACE. NO DISTRESS NOTED ON TRACH TO VENT. O2 SAT IS 99% AND RR 18. PT IS STABLE. BLANKET PROVIDED FOR COMFORT. WILL CONTINUE TO MONITOR.
[2020-09-20] MEDS: INSULIN LISPRO SLIDING SCALE 100 UNITS/ML VIAL SUBQ PRN (23:55)
[2020-09-21] VITALS (8 sets, daily range): BP systolic 121–185; BP diastolic 66–100
--- NOTE | 2020-09-21 01:00 | NUR ---
WOUND WAS ASSESSED IN THE SACRAL REGION. IT WAS CLEANSED WITH NS AND PATTED DRY. THERAHONEY APPLIED. HYDRAGAURD APPLIED TO PERINEAL REGION. NEW DRESSING APPLIED. PT IS STABLE.
[2020-09-21] MEDS: HYDRAGUARD CREAM TP SCH ×2 (01:10→13:54)
--- NOTE | 2020-09-21 01:34 | NUR ---
MADE ROUNDS ON PT. PT WAS REPOSITIONED. HE WAS ALSO SUCTIONED IN THE TRACH WHICH HAD WHITE CREAMY SECRETIONS. PT TOLERATED THIS WELL. O2 SAT IS NOW 100% AFTER SUCTIONING. NO RESPIRATORY DISTRESS NOTED. G TUBE FEEDING IS INFUSING. IV FLUIDS ARE INFUSING ORDERED. PT IS STABLE.
--- NOTE | 2020-09-21 03:30 | NUR ---
PT IS AWAKE, EYES OPEN, NO DISTRESS NOTED. TRACH TO VENT WITH O2 SAT AT 97%. G TUBE AND IV ARE INFUSING. G TUBE RESIDUAL IS 5 ML. PT WAS REPOSITIONED AND DIAPER WAS CHANGED AGAIN. PT HAD A LIQUID BM. LIGHT BROWN IN COLOR AND NORMAL ODOR. PT APPEARS TO BE STABLE AT THIS TIME.
--- NOTE | 2020-09-21 04:29 | NUR ---
RT AT BEDSIDE ASSESSING PT. NO RESPIRATORY DISTRESS NOTED. TRACH TO VENT. O2 SAT IS 99%.
[2020-09-21] MEDS: DILTIAZEM 60 MG TAB GT SCH ×3 (05:17→13:54)
[2020-09-21] MEDS: INSULIN LISPRO SLIDING SCALE 100 UNITS/ML VIAL SUBQ PRN ×2 (05:26→12:16)
[2020-09-21] MEDS: BLOOD GLUCOSE MONITORING 1 DEV DEV FS SCH ×4 (05:27→23:58)
[2020-09-21 05:47] LABS: BASOPHILS % (AUTO) 0.4 % (0.0-2.0); EOSINOPHILS # (AUTO) 0.1 K/uL (0-0.4); EOSINOPHILS % (AUTO) 1.4 % (0.0-4.0); HEMATOCRIT 21.1 % (36-52); LYMPHOCYTES # (AUTO) 0.6 K/uL (2.0-11.5); MEAN CORPUSCULAR HEMOGLOBIN 31 pg (27-31); MEAN CORPUSCULAR HGB CONC 32 g/dL (33-37); MONOCYTES # (AUTO) 0.3 K/uL (0.8-1.0); MONOCYTES % (AUTO) 5.4 % (1.7-9.3); NEUTROPHILS # (AUTO) 5.2 K/uL (1.8-7.7); NEUTROPHILS % (AUTO) 83.8 % (42.2-75.2); PLATELET COUNT (AUTO) 174 K/uL (140-450); RED BLOOD CELL COUNT(AUTO) 2.15 MIL/uL (4.20-6.10); RED CELL DISTRIBUTION WIDTH 19.9 % (11.6-13.7); WHITE BLOOD COUNT (AUTO) 6.2 K/uL (4.8-10.8)
[2020-09-21 05:52] LABS: ANION GAP 15.9 (8-16); CARBON DIOXIDE 27.4 mmol/L (21-32); CREATININE 1.2 mg/dL (0.6-1.3); POTASSIUM 4.3 mmol/L (3.5-5.1)
--- NOTE | 2020-09-21 05:59 | NUR ---
PT HAD ANOTHER BM AND WAS CHANGED. DRESSING ON SACRAL WOUND WAS SOILED AND CHANGED AGAIN. RINSED WITH NS AND PATTED DRY. THERAHONEY APPLIED TO WOUND. PT TOLERATED THE PROCEDURE WELL. HYDRAGUARD APPLIED TO REDNESS IN BETWEEN THE THIGHS AND AROUND THE PERINEUM. PT IS STABLE.
[2020-09-21 06:31] LABS: HEMOGLOBIN 6.7 g/dL (12.0-18.0)
--- NOTE | 2020-09-21 06:44 | NUR ---
NOTIFIED DR. RENNER ABOUT CRITICAL LAB- HGB 6.7 AND HCT 21.1. ALSO INFORMED HIM THAT PREVIOUS H&H WAS 7.9 AND 24.1. DOCTOR ORDERED 2 UNITS PRBC.
--- NOTE | 2020-09-21 07:08 | NUR ---
REC'D PT ON MITCHELL VENT SETTINGS AC 18 VT450 PEEP 5 FIO2 28% ALARMS ON AND AUDIBLE AND VENT IS PLUGGED INTO RED OUTLET, B\S ARE COARSE BILATERALLY, SXN PT SMALL AMT OF YELLOW SECRETIONS, PT IS TRACH WITH PORTEX 7 BVM AT [facility] AND PT IS RESTING WILL CONTINUE TO MONITOR PT
--- NOTE | 2020-09-21 07:25 | NUR ---
ENDORSED PT TO DAY SHIFT NURSE. PT IS STABLE AT THIS TIME. O2 SAT IS 100% ON TRACH TO VENT. ENDORSED THE 2 UNITS OF PRBC'S TO BE TRANSFUSED ONCE LAB IS READY WITH THE BLOOD. PLAN OF CARE DISCUSSED.
--- NOTE | 2020-09-21 09:15 | NUR ---
LOC AWAKE AND ALERT RESPONSIVE TO NUCLEAR PLANT TECHNICAL ADVISOR VERBAL "MOUTHING WORDS AND NODDING HEAD" EQUAL CHEST RISE GOOD AERATION THROUGHOUT BILATERAL LUNG MCCARTHY AIRWAY PATENT
[2020-09-21] MEDS: ASCORBIC ACID 500 MG/5 ML ORASYR GT SCH ×2 (10:33→21:00)
[2020-09-21] MEDS: VIT-B COMP/VIT-C/FOLIC ACID 1 TAB GT SCH (10:34)
[2020-09-21] MEDS: FERROUS SULFATE 300 MG/5 ML UDC GT SCH ×2 (10:34→21:00)
[2020-09-21] MEDS: LACTULOSE 20 GM/30 ML UDC PO SCH (10:34)
[2020-09-21] MEDS: LABETALOL 200 MG TAB GT SCH ×2 (10:35→21:02)
[2020-09-21] MEDS: LEVOTHYROXINE 0.05 MG TAB GT SCH (10:35)
[2020-09-21] MEDS: ZINC SULF 220 MG CAP GT SCH (10:35)
[2020-09-21] MEDS: FOLIC ACID 1 MG TAB PO SCH (10:36)
[2020-09-21] MEDS: CYANOCOBALAMIN 100 MCG TAB GT SCH (10:47)
--- NOTE | 2020-09-21 12:55 | NUR ---
AWAKE AND ALERT RESTING WELL NO INDICATION OF PULMONARY DISTRESS NOTED EQUAL CHEST RISE DEEP TRACHEAL SUCTION FOR SMALL SEMI THICK YELLOW SECRETIONS AIRWAY PATENT
[2020-09-21] MEDS: MEROPENEM 1,000 MG in NACL 0.9% 100 ML IV SCH ×2 (13:53→21:03)
[2020-09-21] MEDS: THERAHONEY GEL 42.5 GM TP SCH (13:54)
--- NOTE | 2020-09-21 14:22 | NUR ---
09/21/20 RD FOLLOW UP COMPLETED PLEASE REFER TO NUTRITION ASSESSMENT UNDER CARE ACTIVITY FOR ESTIMATED NUTRITIONAL NEEDS. 1. RECOMMEND PRO SOURCE BID (PROVIDES AN ADDITIONAL 120 KCAL AND 30 GM OF PROTEIN) 2. CONTINUE GLUCERNA 1.2 @ 60 ML/HR X 24 HR -THIS WILL PROVIDE 1440 ML OF VOLUME, 1162 ML OF WATER, TOTAL KCAL 1848 KCAL AND 116 GM OF PROTEIN PLUS PROSOURCE BID. MEETING >95% OF ESTIMATED NUTRIENT NEEDS 3. CONTINUE FWF 100 ML Q6H (TO PROVIDE ADDITIONAL [address] WILL F/U 2-3 DAYS; HIGH RISK. YARA ABARCA RD
--- NOTE | 2020-09-21 17:14 | NUR ---
Patient awake, oriented and currently getting blood infusion and is on 2nd unit. Blood pressure elevated at 167/84 and has no prn medications for Hypertension, called to notify Dr Killian and awaiting further orders.
--- NOTE | 2020-09-21 19:25 | NUR ---
RECEIVED BEDSIDE REPORT FROM DAY SHIFT NURSE FOR CONTINUITY OF CARE. PT IS AWAKE AND ALERT, NODS TO QUESTIONS. USES MOUTH MOVEMENTS FOR RESPONSES. TRACH TO VENT WITH BREATHING UNLABORED. O2 SAT AT 98%. FIO2 28, PEEP 5, VT 450, AND RT 18. SR ON TELE MONITORING. G TUBE IN PLACE RUNNING GLUCERNA 1.2 AT 60 ML PER HOUR PER ORDER. WATER FLUSHES 150 Q 4H. FAULKNER CATH IN PLACE. SACRAL WOUND, OPEN WITH OPTIFOAM IN PLACE. SKIN IS WARM AND DRY. IV IS IN THE LEFT UA 20 GAUGE SALINE LOCKED. PT IS ON CONTACT PRECAUTIONS FOR ESBL URINE AND MDRO SPUTUM. FALL PRECAUTIONS IN PLACE. PT IS STABLE AT THIS TIME. WILL CONTINUE TO MONITOR. PLAN OF CARE DISCUSSED.
--- NOTE | 2020-09-21 21:00 | NUR ---
COLISTEMETHATE ABX VIAL BROKE AND NEW MEDICATION VIAL WAS PREPARED.
[2020-09-21] MEDS: MIRTAZAPINE 15 MG TAB GT SCH (21:01)
[2020-09-21] MEDS: COLISTIMETHATE SODIUM 150 MG in NACL 0.9% 100 ML IV SCH (22:16)
[2020-09-22] VITALS (7 sets, daily range): BP systolic 114–177; BP diastolic 78–86
--- NOTE | 2020-09-22 01:00 | NUR ---
RECHECKED PT'S BP AFTER CHIEF STEWARD/STEWARDESS TOOK VITALS. PREVIOUS BP AT 0000 AM WAS 176/85 AND HR 87. CURRENT BP WAS 180/88 AND HR 87. WILL NOTIFY DOCTOR.
[2020-09-22] MEDS: HYDRAGUARD CREAM TP SCH ×2 (01:02→12:39)
--- NOTE | 2020-09-22 01:15 | NUR ---
NOTIFIED DR. RENNER ABOUT THE ELEVATED BP. HE RESPONDED AND ORDERED 0.1 MG OF CLONIDINE PO. WILL WAIT TILL MEDICATION IS VERIFIED AND ADMINISTER. Addendum: 09/22/20 at 0546 by Eli Mon RN STATED THAT IF PT IS ASYMPTOMATIC, WAIT TILL MORNING MEDS.
[2020-09-22] MEDS ORDERED: CLONIDINE HYDROCHLORIDE 0.1 MG TAB GT SCH (01:25)
--- NOTE | 2020-09-22 03:00 | NUR ---
PT HAD A BM. THE BM WAS SOFT, LIGHT BROWN IN COLOR, AND NORMAL ODOR. WOUND DRESSING WAS REMOVED IT WAS SOILED AND REPLACED WITH NEW DRESSING. WOUND WAS CLEANSED WITH NS AND PATTED DRY. THERAHONEY WAS APPLIED TO WOUND AND HYDRAGAURD TO PERINEAL REDNESS. PT TOLERATED THIS WELL. REPOSITIONED AND PILLOWS PLACED UNDER BONY REGION. FAULKNER CATH IN PLACE DRAINING CLEAR, YELLOW URINE. G TUBE RESIDUAL LESS THAN 5 ML.
--- NOTE | 2020-09-22 04:43 | NUR ---
PT IS LAYING WITH EYES CLOSED. PT IS STABLE AT THIS TIME. O2 SAT IS 100% ON TRACH TO VENT. NO RESPIRATORY DISTRESS NOTED. LINENS ARE CLEAN AND INTACT. ORAL CARE WAS PROVIDED. WILL CONTINUE TO MONITOR.
[2020-09-22] MEDS: MEROPENEM 1,000 MG in NACL 0.9% 100 ML IV SCH ×2 (05:08→12:44)
[2020-09-22] MEDS: BLOOD GLUCOSE MONITORING 1 DEV DEV FS SCH ×2 (05:10→12:19)
[2020-09-22] MEDS: DILTIAZEM 60 MG TAB GT SCH ×2 (05:10→12:43)
[2020-09-22 05:39] LABS: ANION GAP 12.2 (8-16); CARBON DIOXIDE 30.4 mmol/L (21-32); CREATININE 1.5 mg/dL (0.6-1.3); POTASSIUM 4.6 mmol/L (3.5-5.1)
--- NOTE | 2020-09-22 05:48 | NUR ---
PT IS RESTING. NO SIGNS OF DISTRESS NOTED. PT NODS YES AND NO TO QUESTIONS. PRIMARILY PALESTINIAN SPEAKING. O2 SAT IS 100% ON TRACH TO VENT. PT'S LINENS ARE DRY AND PT IS STABLE. WILL CONTINUE TO MONITOR PT.
--- NOTE | 2020-09-22 07:10 | NUR ---
ENDORSED PT TO DAY SHIFT NURSEHUGO RN FOR CONTINUITY OF CARE. PT IS IN STABLE CONDITION AT THIS TIME. TRACH TO VENT WITH O2 SAT AT 97%. BREATHING IS UNLABORED. PLAN OF CARE DISCUSSED.
--- NOTE | 2020-09-22 08:08 | NUR ---
RECEIVED PT ALERT, EYES OPEN. PT NODS TO COMMUNICATE. NO SIGNS OF DISCOMFORT. TURNED TO SIDE. PT ON CONTACT PRECAUTION. RAYA PIV G [address] AFEBRILE[address] ON TRACH TO VENT TV 500, 28% FIIO2, PEEP 5, RATE OF 18. NO S/S CYANOSIS OR SOB. 90% O2 SAT. FAULKNER CATH IN PLACE, DRAINING CLEAR YELLOW URINE. ON GT FEEDING, GLUCERNA 1.2 AT 60 ML/HR. NO RESIDUAL. NO ABDOMINAL DISTENTION. POC DISCUSSED AND REVIEWED WITH CANDY FORMING MACHINE OPERATOR RN. WILL CONTINUE TO MONITOR.
--- NOTE | 2020-09-22 08:18 | NUR ---
SEEN AND EXAMINED BY DR. PELAYO. PT ON BRP. GAIT STEADY.
--- NOTE | 2020-09-22 09:35 | NUR ---
SEEN AND EXAMINED BY DR. HENDRIX. VENT SETTING RATE CHANGED TO 12. ORDERED TO DO CPAP TRIAL, WILL FOLLOW UP RT.
[2020-09-22] MEDS: FERROUS SULFATE 300 MG/5 ML UDC GT SCH (09:38)
[2020-09-22] MEDS: LEVOTHYROXINE 0.05 MG TAB GT SCH (09:39)
[2020-09-22] MEDS: ASCORBIC ACID 500 MG/5 ML ORASYR GT SCH (09:39)
[2020-09-22] MEDS: LABETALOL 200 MG TAB GT SCH (09:40)
[2020-09-22] MEDS: ZINC SULF 220 MG CAP GT SCH (09:40)
[2020-09-22] MEDS: VIT-B COMP/VIT-C/FOLIC ACID 1 TAB GT SCH (09:40)
[2020-09-22] MEDS: LACTULOSE 20 GM/30 ML UDC PO SCH (09:41)
[2020-09-22] MEDS: FOLIC ACID 1 MG TAB PO SCH (09:42)
[2020-09-22] MEDS: CYANOCOBALAMIN 100 MCG TAB GT SCH (09:42)
[2020-09-22] MEDS: COLISTIMETHATE SODIUM 150 MG in NACL 0.9% 100 ML IV SCH (09:43)
--- NOTE | 2020-09-22 10:16 | NUR ---
PT REPOSITIONED. PT IS ALERT, MOUTHING WORDS. SEEN AND EXAMINED BY DR. MOORE. NO NEW ORDERS MADE.
[2020-09-22 10:24] LABS: BASOPHILS % (AUTO) 0.5 % (0.0-2.0); EOSINOPHILS # (AUTO) 0.1 K/uL (0-0.4); EOSINOPHILS % (AUTO) 1.8 % (0.0-4.0); HEMATOCRIT 28.2 % (36-52); HEMOGLOBIN 9.3 g/dL (12.0-18.0); LYMPHOCYTES # (AUTO) 0.8 K/uL (2.0-11.5); LYMPHOCYTES % (AUTO) 10.8 % (20.5-51.1); MEAN CORPUSCULAR HEMOGLOBIN 31 pg (27-31); MEAN CORPUSCULAR HGB CONC 33 g/dL (33-37); MEAN CORPUSCULAR VOLUME 93.7 fL (80-94); MONOCYTES # (AUTO) 0.5 K/uL (0.8-1.0); MONOCYTES % (AUTO) 6.2 % (1.7-9.3); NEUTROPHILS # (AUTO) 6.1 K/uL (1.8-7.7); NEUTROPHILS % (AUTO) 80.7 % (42.2-75.2); PLATELET COUNT (AUTO) 164 K/uL (140-450); RED BLOOD CELL COUNT(AUTO) 3.01 MIL/uL (4.20-6.10); RED CELL DISTRIBUTION WIDTH 19.5 % (11.6-13.7); WHITE BLOOD COUNT (AUTO) 7.5 K/uL (4.8-10.8)
[2020-09-22] MEDS ORDERED: NACL 0.9% 1,000 ML IV SCH ×2 (10:40→12:25)
--- NOTE | 2020-09-22 10:58 | NUR ---
IVF STARTED NS AT 60 MLS/HR PER DR. MOORE'S ORDER.
--- NOTE | 2020-09-22 11:15 | NUR ---
DISCHARGE ORDER NOTED. REPORT GIVEN TO RECEIVING EMILEE SANTANA AT [facility].
[2020-09-22] MEDS ORDERED: IV Meropenem (11:47)
[2020-09-22] MEDS ORDERED: COLISTIMETHATE (11:47)
[2020-09-22 11:50] LABS: BILIRUBIN,URINE NEGATIVE (NEGATIVE); BLOOD, URINE 2+ (NEGATIVE); COLOR,URINE YELLOW (YELLOW); LEUKOCYTE ESTERASE ,URINE NEGATIVE (NEGATIVE); NITRITE, URINE NEGATIVE (NEGATIVE); UGLUCOSE NEGATIVE (NEGATIVE)
[2020-09-22 11:57] LABS: APPEARANCE,URINE SLIGHTLY HAZY (CLEAR); WBC,URINE 0-5 /HPF (0-5)
[2020-09-22 11:58] LABS: CALCIUM OXALATE CRYSTALS,UR 0-10 /HPF (None Seen); URINE AMORPHOUS URATE 1+ /HPF (None Seen)
[2020-09-22] MEDS: THERAHONEY GEL 42.5 GM TP SCH (12:39)
--- NOTE | 2020-09-22 14:24 | NUR ---
PT IS DISCHARGED. ACCOMPANIED BY [facility] PERSONNEL. REPORT GIVEN TO RN. PT IS STABLE. NO SIGNS OF DISTRESS.
[2020-09-22 16:18] LABS: CREATININE,URINE RANDOM 7 mg/dL (30-125); URINE SODIUM, RANDOM 102 mmol/l (40-220)
== END 2020-09-22 14:20 | DRG 720 ==
LOC: MED 16:46 → MTU 18:47
PROC: 5A1955Z Respiratory Ventilation, Greater than 96 Consecutive Hours (ICD-10-PCS; principal; 2020-09-09)
PROC: 30233N1 Transfusion of Nonautologous Red Blood Cells into Peripheral Vein, Percutaneous Approach (ICD-10-PCS; 2020-09-15)
PROC: 5A12012 Performance of Cardiac Output, Single, Manual (ICD-10-PCS; 2020-09-17)
PROC: 0DJ08ZZ Inspection of Upper Intestinal Tract, Via Natural or Artificial Opening Endoscopic (ICD-10-PCS; 2020-09-20)
PROC: 0DBP8ZX Excision of Rectum, Via Natural or Artificial Opening Endoscopic, Diagnostic (ICD-10-PCS; 2020-09-20)
DX: A41.9 Sepsis, unspecified organism (principal); J69.0 Pneumonitis due to inhalation of food and vomit; E43 Unspecified severe protein-calorie malnutrition; D51.3 Other dietary vitamin B12 deficiency anemia; E87.1 Hypo-osmolality and hyponatremia; J15.1 Pneumonia due to Pseudomonas; J90 Pleural effusion, not elsewhere classified; R13.10 Dysphagia, unspecified; L89.90 Pressure ulcer of unspecified site, unspecified stage; J96.21 Acute and chronic respiratory failure with hypoxia; E87.0 Hyperosmolality and hypernatremia; R64 Cachexia; E11.22 Type 2 diabetes mellitus with diabetic chronic kidney disease; Z68.1 Body mass index [BMI] 19.9 or less, adult; N17.0 Acute kidney failure with tubular necrosis; Z93.0 Tracheostomy status; E11.649 Type 2 diabetes mellitus with hypoglycemia without coma; I46.9 Cardiac arrest, cause unspecified; Z93.1 Gastrostomy status; E03.9 Hypothyroidism, unspecified; N40.0 Benign prostatic hyperplasia without lower urinary tract symptoms; J98.11 Atelectasis; D53.9 Nutritional anemia, unspecified; E86.0 Dehydration; E87.6 Hypokalemia; D50.9 Iron deficiency anemia, unspecified; L80 Vitiligo; R65.20 Severe sepsis without septic shock; Z20.822 Contact with and (suspected) exposure to COVID-19; K56.41 Fecal impaction; K80.20 Calculus of gallbladder without cholecystitis without obstruction; N13.6 Pyonephrosis; Z16.12 Extended spectrum beta lactamase (ESBL) resistance; Y95 Nosocomial condition; B96.20 Unspecified Escherichia coli [E. coli] as the cause of diseases classified elsewhere; K52.89 Other specified noninfective gastroenteritis and colitis; I12.9 Hypertensive chronic kidney disease with stage 1 through stage 4 chronic kidney disease, or unspecified chronic kidney disease; R62.7 Adult failure to thrive
CPT/HCPCS: 36415; 36600; 70450; 71045; 71250; 74018; 76705; 76770; 80048; 80053; 80202; 81001; 82272; 82570; 82803; 82948; 83036; 83605; 83735; 83880; 84100; 84300; 84439; 84443; 84484; 85018; 85025; 86886; 86900; 86901; 86920; 87040; 87070; 87075; 87081; 87086; 87205; 89220; 93005; 94002; 94003; 96365; 99285; C1758; J0696; J0770; J1200; J1644; J1815; J2001; J2185; J2250; J2270; J2543; J3010; J3370; J3475; J3480; J7030; J7042; J7060; J7131; P9016; U0003

== ENCOUNTER 2020-09-24 12:22 | Inpatient (IN) | payer MEDICAID, SELFPAY ==
[~2020-09-24] VITALS: Ht 165.1 cm; Wt 59.4 kg
[2020-09-24 12:22] VITALS: BP 116/61
[~2020-09-24 12:22] MED LIST: ASCO-786 GT; COLISTIMETHATE; DILT-135 GT; FERR325E14 GT; GLIP5TER GT; IV Meropenem; METF850T GT; MIRT-91 GT; MULT-2253 GT; SCOP1PAT TD; SYN.05 GT; TAMS0.4C96 GT; TRA200 GT; VITA1TAB44 GT; VITB12 GT; ZINC220C28 GT; [UNRECOGNIZED DRUG - CODE] GT
--- NOTE | 2020-09-24 12:24 | NUR ---
BIBA TAKEN TO BED 10
[2020-09-24] MEDS ORDERED: LACTATED RINGERS 1,000 ML IV ONE (12:35)
[2020-09-24] MEDS ORDERED: MEROPENEM 1,000 MG in NACL 0.9% 100 ML IV ONE (12:35)
--- NOTE | 2020-09-24 12:41 | NUR ---
70 Y/O MALE BIBA FROM [facility] [place] FOR ALOC X TODAY. PER EMS, PT GIVEN MEDS AT 0900, FED VIA G-TUBE AT 1000 AND ACTING APPROPRIATELY. LAST "WELL" TIME AT 1100 TODAY. PER FACILITY PT IS ABLE TO SAY FEW WORDS HIS BASELINE. PER EMS, FACILITY READ BG 33 AND ADMINISTERED D50. SPO2 99% TRACH ON VENT, CLEAR LUNG SOUNDS THROUGHOUT, NO COUGH PRESENT. BP 116/81, HR 68, BILATERAL SWOLLEN FEET ONLY WITH +2 PITTING EDEMA. PT ARRIVED WITH 20G IV LEFT UPPER ARM, 20G IV RIGHT FOREARM, 16F FAULKNER CATHETER, AND G-TUBE. AO0, BREATHING EVEN AND UNLABORED (ON VONT), SKIN WARM AND DRY. BED IN LOWEST POSITION, LOCKED, X1 SIDERAIL UP. PT ON MONITOR. PMH - HX DM, HTN, PNA, CHRONIC RESPIRATORY FAILURE, TRACH TO VENT DEPENDENT, BPH, G-TUBE, ANEMIA, ANXIETY NKA
[2020-09-24 12:44] VITALS: BP 116/61
--- NOTE | 2020-09-24 12:44 | NUR ---
X-Ray at bedside.
--- NOTE | 2020-09-24 12:53 | NUR ---
SPOKE TO PHARM ABOUT PREPARING MERREM 1G IN NS 100mL AND COLY-MYCIN M PARENTERAL 150 mg IN 100mL NS. PHARM RPELIED "OKAY"
[2020-09-24] MEDS ORDERED: MEROPENEM 1,000 MG VIAL IV ONE ×2 (12:55→20:49)
[2020-09-24 13:12] LABS: BASOPHILS % (AUTO) 0.1 % (0.0-2.0); EOSINOPHILS # (AUTO) 0.1 K/uL (0-0.4); EOSINOPHILS % (AUTO) 0.7 % (0.0-4.0); HEMATOCRIT 26.8 % (36-52); HEMOGLOBIN 8.7 g/dL (12.0-18.0); LYMPHOCYTES # (AUTO) 0.4 K/uL (2.0-11.5); LYMPHOCYTES % (AUTO) 4.2 % (20.5-51.1); MEAN CORPUSCULAR HEMOGLOBIN 31 pg (27-31); MEAN CORPUSCULAR HGB CONC 33 g/dL (33-37); MEAN CORPUSCULAR VOLUME 95.2 fL (80-94); MONOCYTES # (AUTO) 0.2 K/uL (0.8-1.0); MONOCYTES % (AUTO) 2.5 % (1.7-9.3); NEUTROPHILS # (AUTO) 8.3 K/uL (1.8-7.7); NEUTROPHILS % (AUTO) 92.5 % (42.2-75.2); PLATELET COUNT (AUTO) 131 K/uL (140-450); RED BLOOD CELL COUNT(AUTO) 2.81 MIL/uL (4.20-6.10); RED CELL DISTRIBUTION WIDTH 18.3 % (11.6-13.7)
[2020-09-24 13:33] LABS: ALBUMIN 1.7 g/dL (3.4-5.0); ANION GAP 12.9 (8-16); CARBON DIOXIDE 29.8 mmol/L (21-32); CREATININE 1.7 mg/dL (0.6-1.3); POTASSIUM 4.7 mmol/L (3.5-5.1)
--- NOTE | 2020-09-24 13:55 | NUR ---
PT BROUGHT BACK FROM CT SCAN AND PLACED IN BED 10.
[2020-09-24] MEDS: COLISTIMETHATE SODIUM 150 MG in NACL 0.9% 100 ML IV SCH (14:09)
--- NOTE | 2020-09-24 14:41 | NUR ---
SPOKE TO GRANDDAUGHTER SANJEEV AND PROVIDED UPDATE. GRANDDAUGHTER ASKED TO BE CONTACTED PRIOR TO PT DC FROM HOSPITAL TO FIGURE OUT PLACEMENT FOR PATIENT TO NOT RETURN TO [facility]. WILL COMMUNICATE WITH NURSES INVOLVED IN CONTINUATION OF CARE AND SOCIAL WORKERS IF AVAILABLE. GRANDDAUGHTER: SANJEEV PTS DAUGHTER ([place]AMAZ[place]-SPEAKING ONLY):
--- NOTE | 2020-09-24 15:49 | NUR ---
Patient will be admitted to care of PIERCE YOST. Admited to TELEMETRY. Will go to room 123B. Belongings list completed. Report to MARIE HEBERT.
[2020-09-24 15:50] LABS: APPEARANCE,URINE CLEAR (CLEAR); BILIRUBIN,URINE NEGATIVE (NEGATIVE); BLOOD, URINE 2+ (NEGATIVE); COLOR,URINE YELLOW (YELLOW); LEUKOCYTE ESTERASE ,URINE NEGATIVE (NEGATIVE); NITRITE, URINE NEGATIVE (NEGATIVE); UGLUCOSE NEGATIVE (NEGATIVE)
[2020-09-24 16:10] VITALS: BP 124/71
--- NOTE | 2020-09-24 16:10 | NUR ---
RECEIVED PT FROM ER NURSE, ON A TRACH TO VENT AT FIO2 AT 30%, VT IS AT 450, RATE IS AT18 AND PEEP IS AT 5, APHASIC, IV LINES NOTED ON THE LEFT UA G. 20 ON SALINE LOCK AND ON THE RFA G. 20 ON SALINE LOCK WELL. V.S TAKEN AND BP IS 124/71, SATURATION IS AT 99%, TEMPERATURE IS TA 98.1, RESPIRATION IS AT 20/MIN, SACRAL WOUND NOTED AND WAS REINFORCED WITH FOAM DRESSING, NO SIGN OF DISTRESS NOTED AND WILL CONTINUE TO MONITOR PT.
--- NOTE | 2020-09-24 16:28 | NUR ---
PT TAKEN TO TELE 123B VIA EMILIANO
[2020-09-24 16:48] LABS: RBC,URINE 20-50 /HPF (0-5); URINE AMORPHOUS URATE 1+ /HPF (None Seen); WBC,URINE 0-5 /HPF (0-5)
--- NOTE | 2020-09-24 17:05 | NUR ---
MRSA SWAB DONE TO PT NOW AND SAMPLE WAS SENT TO LAB.
[2020-09-24] MEDS ORDERED: NACL 0.9% 1,000 ML IV SCH (18:35)
[2020-09-24] MEDS ORDERED: ZOLPIDEM 5 MG TAB PO PRN (18:35)
[2020-09-24] MEDS ORDERED: ONDANSETRON 4 MG/2 ML VIAL IM/IVP PRN (18:35)
[2020-09-24] MEDS ORDERED: DOCUSATE SODIUM 100 MG GELCAP PO PRN (18:35)
[2020-09-24] MEDS ORDERED: POTASSIUM CHLORIDE 10 MEQ TABER PO PRN (18:35)
[2020-09-24] MEDS ORDERED: guaiFENesin DM 200/20 MG-10 ML 10 ML UDC PO PRN (18:35)
[2020-09-24] MEDS ORDERED: ACETAMINOPHEN 325 MG TAB PO PRN (18:35)
[2020-09-24] MEDS ORDERED: HYDROcodone/APAP 7.5/325 MG 1 TAB PO PRN (18:35)
--- NOTE | 2020-09-24 19:15 | NUR ---
RECEIVED BEDSIDE REPORT FROM DAY RN KEON. PT ON TRACH TO VENT, APHASIC. NO S/S RESPIRATORY DISTRESS. FIO2 30%, TV 450 RATE 18 PEEP 5. G TUBE IN PLACE, IV SITE TO QUIANA 20G AND RFA 20G PATENT INTACT, INFUSING IVF ORDERED. FAULKNER CATH IN PLACE, DRAINING YELLOW URINE. HAS SACRAL PRESSURE COVERED WITH FOAM DRESSING, NO DRAINAGE. SAFETY MEASURES IN PLACE. CALL LIGHT WITHIN REACH. WILL CONTINUE TO MONITOR
--- NOTE | 2020-09-24 19:50 | NUR ---
VERIFIED TUBE FEEDING ROUTE WITH MD, STATED OK TO USE GTUBE
[2020-09-24 20:00] VITALS: BP 115/70
[2020-09-24 20:16] LABS: FREE T4 (FREE THYROXINE) 0.95 ng/dL (0.76-1.46); MAGNESIUM 2.7 mg/dL (1.8-2.4); PHOSPHORUS 6.7 mg/dL (2.5-4.9); THYROID STIMULATING HORMONE 20.57 uIU/mL (0.34-3.74)
[2020-09-24 20:35] VITALS: BP 115/70
[2020-09-24] MEDS: LABETALOL 200 MG TAB GT SCH (20:43)
[2020-09-24] MEDS: DILTIAZEM 60 MG TAB PO SCH (20:43)
[2020-09-24] MEDS: MEROPENEM 1,000 MG in NACL 0.9% 100 ML IV SCH (20:51)
--- NOTE | 2020-09-24 20:57 | NUR ---
CHECKED GTUBE RESIDUAL, NO RESIDUAL. ADMINISTERED SCHEDULED MEDICATION, TOLERATED WELL. WILL CONTINUE TO MONITOR
[2020-09-24] MEDS ORDERED: COLISTIMETHATE 150 MG SCH (21:00)
[2020-09-24] MEDS ORDERED: MEROPENEM 1000 MG SCH (21:00)
--- NOTE | 2020-09-24 21:45 | NUR ---
STARTED GTUBE FEEDING, GLUCERNA 1.2 @10ML/HR, H20 FLUSH 200 Q4H. NO DISTRESS NOTED. WILL CONTINUE TO MONITOR
--- NOTE | 2020-09-24 23:50 | NUR ---
PT RESTING IN BED. RESPIRATIONS EVEN UNLABORED. NO S/S ACUTE DISTRESS NOTED. WILL CONTINUE TO MONITOR
[2020-09-25] VITALS (8 sets, daily range): BP systolic 84–147; BP diastolic 42–78
[2020-09-25] MEDS: DEXTROSE 10% 1,000 ML IV SCH ×2 (01:15→12:39)
--- NOTE | 2020-09-25 03:07 | NUR ---
CLEANED CHANGED REPOSITIONED PT, TOLERATED WELL. NO DISTRESS NOTED. SAFETY MEASURES IN PLACE. CALL LIGHT WITHIN REACH. WILL CONTINUE TO MONITOR
[2020-09-25] MEDS ORDERED: MEROPENEM 1,000 MG VIAL IV ONE (04:09)
[2020-09-25] MEDS: MEROPENEM 1,000 MG in NACL 0.9% 100 ML IV SCH ×3 (04:35→20:40)
--- NOTE | 2020-09-25 04:35 | NUR ---
SCHEDULED MEDICATION GIVE. NO DISTRESS NOTED. WILL CONTINUE TO MONITOR
--- NOTE | 2020-09-25 05:00 | NUR ---
PT TOLERATING GTUBE FEEDING WELL, INCREASED RATE BY 10ML/HR. NO DISTRESS NOTED. WILL CONTINUE TO MONITOR
[2020-09-25] MEDS: DILTIAZEM 60 MG TAB PO SCH ×3 (05:16→20:42)
[2020-09-25 06:17] LABS: BASOPHILS % (AUTO) 0.1 % (0.0-2.0); EOSINOPHILS # (AUTO) 0.1 K/uL (0-0.4); EOSINOPHILS % (AUTO) 0.9 % (0.0-4.0); HEMOGLOBIN 8.8 g/dL (12.0-18.0); LYMPHOCYTES # (AUTO) 0.6 K/uL (2.0-11.5); MEAN CORPUSCULAR HEMOGLOBIN 31 pg (27-31); MEAN CORPUSCULAR HGB CONC 34 g/dL (33-37); MEAN CORPUSCULAR VOLUME 92.9 fL (80-94); MONOCYTES # (AUTO) 0.2 K/uL (0.8-1.0); NEUTROPHILS # (AUTO) 9.2 K/uL (1.8-7.7); PLATELET COUNT (AUTO) 130 K/uL (140-450); RED CELL DISTRIBUTION WIDTH 18.2 % (11.6-13.7); WHITE BLOOD COUNT (AUTO) 10.1 K/uL (4.8-10.8)
[2020-09-25 06:57] LABS: LYMPHOCYTES % (AUTO) 6.2 % (20.5-51.1); NEUTROPHILS % (AUTO) 90.8 % (42.2-75.2)
--- NOTE | 2020-09-25 07:15 | NUR ---
CHECKED BLOOD SUGAR, SHOWED LO ON DEVICE, PRN D50 GIVEN. NOTIFIED LAB TO CALL ONCE LAB GLUCOSE RESULTED. GLUCOSE 3, RECHECKED BLOOD SUGAR, 97.
[2020-09-25 07:19] LABS: ANION GAP 12.5 (8-16); CARBON DIOXIDE 27.9 mmol/L (21-32); CREATININE 1.7 mg/dL (0.6-1.3); POTASSIUM 4.4 mmol/L (3.5-5.1)
[2020-09-25] MEDS: BLOOD GLUCOSE MONITORING 1 DEV DEV FS SCH ×5 (07:38→20:32)
[2020-09-25] MEDS: DEXTROSE 50% 50 ML SYR IVP PRN ×2 (07:39→12:10)
--- NOTE | 2020-09-25 07:45 | NUR ---
ENDORSED PT TO DAY RN FOR CONTINUITY OF CARE. PT IS IN STABLE CONDITION
--- NOTE | 2020-09-25 07:50 | NUR ---
RECEIVED BEDSIDE REPORT FROM SUPERVISOR LABORATORY NURSE. PT ON TRACH TO VENT, APHASIC. NO S/S RESPIRATORY DISTRESS. FIO2 30%, TV 450 RATE 18 PEEP 5. SKIN WARM AND DRY. G TUBE IN PLACE INFUSING GLUCERNA 1.2 L @ 20CC/HR WITH WATER FLUSH 200 CC/Q4H, IV SITE TO QUIANA 20G AND RFA 20G PATENT AND INTACT. FAULKNER CATH IN PLACE, DRAINING YELLOW URINE. HAS SACRAL PRESSURE COVERED WITH FOAM DRESSING, NO DRAINAGE. SAFETY MEASURES IN PLACE. BED IN LOW POSITION AND CALL LIGHT WITHIN REACH. WILL CONTINUE TO MONITOR
[2020-09-25] MEDS ORDERED: DEXT 5% / NACL 0.9% 1,000 ML IV SCH (08:30)
[2020-09-25] MEDS: LABETALOL 200 MG TAB GT SCH ×2 (09:00→20:51)
[2020-09-25] MEDS: TAMSULOSIN 0.4 MG CAP GT SCH (09:24)
[2020-09-25] MEDS: PANTOPRAZOLE 40 MG TABEC PO SCH (09:24)
[2020-09-25] MEDS: LEVOTHYROXINE 0.05 MG TAB GT SCH (09:24)
[2020-09-25] MEDS: COLISTIMETHATE SODIUM 150 MG in NACL 0.9% 100 ML IV SCH ×2 (09:39→21:34)
--- NOTE | 2020-09-25 10:10 | NUR ---
ALL SCHEDULED MEDS GIVEN. PT IS STSABLE. NO DISTRESS NOTED. WILL CONTINUE TO MONITOR.
--- NOTE | 2020-09-25 12:08 | NUR ---
PATIENT'S BLOOD SUGAR IS 28. ADMINISTERED DEXTROSE 50% IVP PER MD ORDERED. NOTIFIED MD AND AWAITING FOR RESPONSE. Addendum: 09/25/20 at 1211 by Jabari Merlos RN RN WILL FOLLOW UP BLOOD SUGAR AFTER 15 MINS
--- NOTE | 2020-09-25 12:26 | NUR ---
RECHECK BLOOD SUGAR AND IS NOW 133. NEW ORDERS FROM RECEIVED. WILL REPLACE CURRENT D5NS @100 ML/HR WITH D10 100 ML/HR PER MD REQUEST.
--- NOTE | 2020-09-25 14:00 | NUR ---
CHECK ON PATIENT. PATIENT HAD SALIVA AROUND MOUTH. SUCTION PATIENT'S MOUTH. KEPT CLEAN AND DRY. NO SIGNS OF DISTRESS NOTED. WILL CONTINUE TO MONITOR
--- NOTE | 2020-09-25 16:15 | NUR ---
BLOOD SUGAR CHECK IS 134. NO INSULIN COVERAGE NEEDED. WILL CONTINUE TO MONITOR
--- NOTE | 2020-09-25 18:10 | NUR ---
CHECKED ON PATIENT. PATIENT IS STABLE. NO S/S OF RESPIRATORY DISTRESS NOTED. WILL CONTINUE TO MONITOR.
--- NOTE | 2020-09-25 19:25 | NUR ---
ENDORSED TO DROP COUNT ASSOCIATE NURSE FOR CONTINUITY OF CARE. PT IS STABLE.
--- NOTE | 2020-09-25 19:26 | NUR ---
RECEIVED REPORT FROM SRIRAM DOVER. PT APHASIC TRACH TO VENT. NO S/S RESPIRATORY DISTRESS. FLACC 0. IV SITE RFA 20G PATENT INTACT INFUSING D10 @ 100ML/HR ORDERED. QUIANA 20G PATENT INTACT, S.L. FAULKNER CATH IN PLACE DRAINING YELLOW URINE. GTUBE IN PLACE, INFUSING TUBE FEEDING GLUCERNA 1.2 AT 40ML/HR, H20 FLUSH 200 Q4H. SAFETY MEASURES IN PLACE. CALL LIGHT WITHIN REACH. WILL CONTINUE TO MONITOR
--- NOTE | 2020-09-25 20:45 | NUR ---
GTUBE RESIDUAL LESS THAN 10ML, TOLERATING TUBE FEEDING WELL. NO S/S RESPIRATORY DISTRESS. WILL CONTINUE TO MONITOR
--- NOTE | 2020-09-25 20:52 | NUR ---
ADMINISTERED SCHEDULED MEDICATIONS. NO DISTRESS NOTED. WILL CONTINUE TO MONITOR
--- NOTE | 2020-09-25 21:37 | NUR ---
ADMINISTERED SCHEDULED MEDICATIONS. NO DISTRESS NOTED. WILL CONTINUE TO MONITOR
[2020-09-25] MEDS: INSULIN LISPRO SLIDING SCALE 100 UNITS/ML VIAL SUBQ PRN (23:35)
--- NOTE | 2020-09-25 23:45 | NUR ---
CHECKED ON PATIENT. SYMMETRICAL CHEST RISE AND FALL. NO S/S ACUTE DISTRESS NOTED. WILL CONTINUE TO MONITOR
[2020-09-26] VITALS (9 sets, daily range): BP systolic 106–162; BP diastolic 59–88
--- NOTE | 2020-09-26 02:04 | NUR ---
CLEANED CHANGED REPOSITIONED PATIENT, TOLERATED WELL. NO DISTRESS NOTED. SAFETY MEASURES IN PLACE. CALL LIGHT WITHIN REACH. WILL CONTINUE TO MONITOR
--- NOTE | 2020-09-26 02:58 | NUR ---
PATIENT RESTING IN BED, RESPIRATIONS EVEN UNLABORED. NO S/S ACUTE DISTRESS NOTED. WILL CONTINUE TO MONITOR
[2020-09-26] MEDS: MEROPENEM 1,000 MG in NACL 0.9% 100 ML IV SCH ×2 (04:15→13:00)
[2020-09-26] MEDS: DILTIAZEM 60 MG TAB PO SCH ×3 (04:56→21:00)
--- NOTE | 2020-09-26 05:00 | NUR ---
SCHEDULED MEDICATION GIVEN, NO DISTRESS NOTED. WILL CONTINUE TO MONITOR
[2020-09-26] MEDS: BLOOD GLUCOSE MONITORING 1 DEV DEV FS SCH ×4 (05:24→21:40)
[2020-09-26 05:43] LABS: BASOPHILS % (AUTO) 0.2 % (0.0-2.0); EOSINOPHILS # (AUTO) 0.1 K/uL (0-0.4); EOSINOPHILS % (AUTO) 0.8 % (0.0-4.0); HEMATOCRIT 28.4 % (36-52); HEMOGLOBIN 9.2 g/dL (12.0-18.0); LYMPHOCYTES # (AUTO) 0.3 K/uL (2.0-11.5); LYMPHOCYTES % (AUTO) 2.3 % (20.5-51.1); MEAN CORPUSCULAR HEMOGLOBIN 31 pg (27-31); MEAN CORPUSCULAR HGB CONC 33 g/dL (33-37); MEAN CORPUSCULAR VOLUME 93.9 fL (80-94); MONOCYTES # (AUTO) 0.5 K/uL (0.8-1.0); MONOCYTES % (AUTO) 3.1 % (1.7-9.3); NEUTROPHILS % (AUTO) 93.6 % (42.2-75.2); PLATELET COUNT (AUTO) 157 K/uL (140-450); RED BLOOD CELL COUNT(AUTO) 3.02 MIL/uL (4.20-6.10); RED CELL DISTRIBUTION WIDTH 18.5 % (11.6-13.7); WHITE BLOOD COUNT (AUTO) 14.9 K/uL (4.8-10.8)
[2020-09-26] MEDS: INSULIN LISPRO SLIDING SCALE 100 UNITS/ML VIAL SUBQ PRN ×3 (05:53→18:09)
[2020-09-26 05:58] LABS: ANION GAP 15.3 (8-16); CARBON DIOXIDE 26.7 mmol/L (21-32); CREATININE 1.9 mg/dL (0.6-1.3)
--- NOTE | 2020-09-26 06:02 | NUR ---
BLOOD SUGAR 254, 6 UNITS INSULIN GIVEN SUBQ PER SLIDING SCALE. NO DISTRESS NOTED. WILL CONTINUE TO MONITOR
--- NOTE | 2020-09-26 07:25 | NUR ---
REC'D REPORT FROM [employer] SALES SUPERVISOR NURSE, PT AWAKE, DOES NOT RESPOND TO QUESTIONS, [place] SPE[employer], CURRENTLY ON TELEMONITOR SR. TRACH TO VENT. VT 450 RR 18 PEEP 5 FIO2 30%. CALL LIGHT WITHIN REACH. NO SIGN OF DISTRESS. WILL CONTINUE TO MONITOR
--- NOTE | 2020-09-26 07:30 | NUR ---
ENDORSED PATIENT TO DAY RN FOR CONTINUITY OF CARE. PATIENT IS IN STABLE CONDITION
[2020-09-26 08:08] LABS: T4 (THYROXINE) 5.2 ug/dL (4.5-12.0)
[2020-09-26] MEDS: DEXTROSE 10% 1,000 ML IV SCH ×2 (08:20→17:16)
--- NOTE | 2020-09-26 09:28 | NUR ---
PATIENT HAS BEEN SCREENED AND CATEGORIZED HIGH NUTRITION RISK. PATIENT WILL BE SEEN WITHIN 1-2 DAYS OF ADMISSION. 09/26/[address]
--- NOTE | 2020-09-26 09:40 | NUR ---
ASSISTED SHORTY WOUND CARE NURSE WITH POSITIONING OF PATIENT. WOUND CARE NURSE PROVIDED DRESSING CHANGE FOR PT. PT STABLE
[2020-09-26] MEDS: LABETALOL 200 MG TAB GT SCH ×2 (09:44→21:00)
[2020-09-26] MEDS: LEVOTHYROXINE 0.05 MG TAB GT SCH (09:44)
[2020-09-26] MEDS: TAMSULOSIN 0.4 MG CAP GT SCH (09:44)
[2020-09-26] MEDS: PANTOPRAZOLE 40 MG TABEC PO SCH (09:44)
[2020-09-26] MEDS: COLISTIMETHATE SODIUM 150 MG in NACL 0.9% 100 ML IV SCH (09:45)
--- NOTE | 2020-09-26 09:55 | NUR ---
ADMINISTERED MEDICATIONS PER MD ORDER, GTUBE ASPIRATION OF 5ML. FLUSHED WITH 30ML OF STERILE WATER BEFORE AND AFTER MEDICATION ADMINISTRATION. PT TOLERATED GTUBE MEDICATION WELL. MEDICATION MOA, AND SIDE EFFECTS EXPLAINED TO PATIENT, WHICH CANNOT VERBALLY ACKNOWLEDGE AT THIS TIME. NO SIGN OF DISTRESS, WILL CONTINUE TO MONITOR
[2020-09-26] MEDS ORDERED: LANSOPRAZOLE 30 MG CAPDR GT SCH (10:00)
--- NOTE | 2020-09-26 11:00 | NUR ---
WOUND CARE RE-EVALUATION NOTE: SKIN ASSESSMENT DONE WITH PRIMARY RN. PT. ADMITTED WITH PRESSURE INJURY. PT. IS ON TRACH AND PEG TUBE. SKIN DRY AND WITH MULTIPLE ECCHYMOSIS TO UPPER EXTREMITIES. 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 BILATERAL LE SKIN DRY AND INTACT. HEELS OFFLOADING. POC DISCUSSED WITH PRIMARY RN. INTEGUMENTARY: -SACRALCOCCYX PRESSURE INJURY UN-STAGEABLE 4X4.5X0.1CM, IRREGULAR SHAPE, WOUND BED 70% BROWN SOFT SLOUGH TISSUE, MOIST AND 30 % PINK /RED GRANULATING TISSUE, NO ODOR, YANIQUE WOUND SKIN TO RIGHT AND LEFT BUTTOCKS MAD SKIN RED AND DENUDED -MAD TO BUTTOCKS, SCROTAL AND YANIQUE-ANAL AREA SKIN MOIST AND DENUDED RECOMMENDATIONS -CLEANSE SACRALCOCCYX WOUND WITH WOUND CARE SOLUTION, PAT DRY APPLY THERAHONEY GEL TO WOUND BED, APPLY THIN LAYER OF Z GUARD TO GUEVARA-WOUND SKIN COVER WITH DRY DRESSING CHANGE QD AND PRN IF SOILING, OFFLOADING AT ALL TIMES -APPLY THIN LAYER OF Z GUARD TO BUTTOCKS, SCROTAL AND YANIQUE-ANAL MAD BID AND PRN IF SOILING -TURN AND REPOSITION PATIENT Q 2H -ASSESS AND MONITOR SKIN CONDITION DURING POSITION CHANGE -OFFLOAD BILATERAL HEELS BY PLACING PILLOWS UNDER CALVES AT ALL TIMES, UNLESS OTHERWISE CONTRAINDICATED -PRESSURE REDISTRIBUTION BY PLACING PILLOWS AND OFFLOADING HIPS AND SACRALCOCCYX -KEEP SKIN CLEAN AND DRY AT ALL TIMES. PLEASE CONTACT WOUND CARE NURSE FOR ANY QUESTIONS OR CHANGE OF SKIN CONDITION.
[2020-09-26] MEDS ORDERED: Z-GUARD PASTE TP PRN (11:05)
--- NOTE | 2020-09-26 11:05 | NUR ---
CHANGED DRESSING COVERING G-TUBE STOMA, CLEANSED WITH NS, SCANT AMOUNT OF DRY BLOOD NOTICED, WILL CONTINUE TO MONITOR
--- NOTE | 2020-09-26 11:13 | NUR ---
ELEN JANSEN: CONTACTED PATIENTS GRAND DAUGHTER NARCISO ABOUT PATIENT RETURNING TO [facility]. SHE STATED THAT SHE WAS TEACHING AT THE TIME AND WILL CONTACT ME BACK SHORTLY. Addendum: 09/27/20 at 1020 by Abdias PIERRE CHRIS RECEIVED PHYSICIAN'S ORDERS FOR HOSPICE. CHRIS SPOKE WITH DR. AMIN WHO STATED THAT SHE SPOKE WITH GRANDDAUGHTER AND DAUGHTER WHO WERE AMENABLE TO HOSPICE. CHRIS CONTACTED BUD FROM [facility] [phone]. PER BUD, SHE SPOKE TO GRANDDAUGHTER WHO STATED THAT SHE WOULD LIKE TO CONSULT WITH PATIENT'S DAUGHTER FURTHER BEFORE COMPLETING PAPERWORK. BUD REQUESTED CLINICALS BE FAXED TO [facility]. CHRIS FAXED CLINICALS TO [phone]. Addendum: 09/27/20 at 1103 by Abdias Gerard CHRIS FOLLOWED UP WITH BUD WHO STATED THAT SHE CONTACTED ICU NURSE. BUD STATED THAT SHE WILL MONITOR PATIENT'S STATUS AND WILL FOLLOW UP WITH FAMILY. CHRIS WILL FOLLOW UP WITH BUD AT A LATER TIME. Addendum: 09/28/20 at 1107 by Abdias Gerard CHRIS SPOKE WITH BUD REGARDING PATIENT'S DISCHARGE PLAN. PER BUD SHE HAS SPOKEN TO DR. AMIN REGARDING PATIENT'S DISCHARGE. BUD STATED THAT SHE INFORMED DR. AMIN AND FAMILY THAT TRACH WOULD NEED TO BE WITHDRAWN BEFORE SHE IS ABLE TO TAKE PATIENT ON HOSPICE. BUD STATED THAT SHE WILL CONTACT FAMILY AND FOLLOW UP WITH CM. Addendum: 09/28/20 at 1245 by Abdias Gerard CHRIS CONTACTED GRANDDAUGHTER SANJEEV WHO STATED THAT SHE SPOKE TO BUD FROM [facility]. SANJEEV STATED THAT SHE IS UNSURE HOW TO PROCEED REGARDING DISCHARGE PLAN. SANJEEV STATED THAT SHE WILL SPEAK TO HER FAMILY BECAUSE SHE IS UNABLE TO MAKE DECISION WITHOUT FAMILY AGREEMENT. SANJEEV REQUESTED TO SPEAK TO PHYSICIANRui PEREZ NOTIFIED DR. GEORGE. Addendum: 09/28/20 at 1520 by Briana Azar CM DC CAUL DRESSER: PER DR. WEINSTEIN PATIENT WILL DC BACK TO [facility] TODAY. FAXED CLINICALS TO [facility]. LOREE FRIED PATIENT CAN GO TO ROOM 2-C UNDER DR. PARRISH Addendum: 09/28/20 at 1526 by Briana Azar CM DC CAUL DRESSER: PATIENTS DC WILL BE HELD. CONTACTED [facility] [phone] TO PUT TRANSPORTATION ON WILL CALL Addendum: 09/30/20 at 1457 by Tiny Aguilar RN DC PLANNING S/P CARDIAC ARREST TRACH-VENT FIO2 24% NON-RESPONSIVE FAMILY REFUSED HOSPICE, AND AGREED PT TO GO BACK TO [facility] WHEN STABLE CM TO FOLLOW Addendum: 10/04/20 at 1502 by Briana Azar CM DC CAUL DRESSER: RECEIVED A DC ORDER BACK TO [facility]. FAXED CLINICALS. PER FARIHA PATIENT WILL RETURN TO ROOM 2-C UNDER DR. PARRISH. SPOKE TO PATIENTS GRAND DAUGHTER SANJEEV TO NOTIFY HER OF DISCHARGE. ARRANGED TRANSPORTATION WITH [facility] [phone] ETA IS 5:00 PM
--- NOTE | 2020-09-26 12:16 | NUR ---
FINGER GLUCOSE 304, COVERED WITH 8 UNITS OF INSULIN, PT TOLERATED PROCEDURE WELL.
[2020-09-26] MEDS: Z-GUARD PASTE TP SCH (13:00)
[2020-09-26] MEDS: THERAHONEY GEL 42.5 GM TP SCH (13:00)
--- NOTE | 2020-09-26 13:05 | NUR ---
SOCIAL WORK NOTE: Patient's Orientation Unable To Assess Information Provided By CLAYTON Buckner [facility] Comments SW WAS UNABLE TO MEET PATIENT AT BEDSIDE. SW COMPLETED ASSESSMENT WITH [facility] STAFF. Lumber Cutter, Realtionship and Phone Number SANJEEV GOULDDAUGHTER [phone] OLGA ABARCA DAUGHTER [phone] Healthcare Power of Churn Driller No Does Patient Have a POLST No Identifying Problems No Social Work Triggers Is A Social Work Consult Needed No Mandate Report Filed No Explanation Of Identifying Problems PATIENT IS A 70-YEAR-OLD MALE ADMITTED FOR ALOC AND HYPOGLYCEMIA. PATIENT HAS PMHX OF CHRONIC RESPIRATORY FAILURE S/P TRACH AND PEG. Admitted From Home Shelter Facility [facility] - [phone] Pre-Admission Level Of Functioning Status Total Care Prior Resources/Services Used In Last 12 Months Subacute Prior Resources/Service Comments PATIENT IS A SUBACUTE PATIENT ON A BED HOLD. Prior DME Trach Supplies Dialysis Comments N/A Patient Had Caregiver No Home Support No Caregiver Issues Financial Issues No Known Financial Issue Referral To The Financial Counselor Needed No Factors/Needs No D/C Needs Identified Pt/Rep Participated In Discharge Plan Yes Patient/Family Agress With Discharge Plan Yes Discharge Plan Comments TENTATIVE DISCHARGE PLAN IS FOR PATIENT TO RETURN TO [facility]. DC Plan Status Initiated
--- NOTE | 2020-09-26 14:42 | NUR ---
09/26/20 RD INITIAL ASSESSMENT COMPLETED PLEASE REFER TO NUTRITION ASSESSMENT UNDER CARE ACTIVITY FOR ESTIMATED NUTRITIONAL NEEDS. 1. RECOMMEND GLUCERNA 1.2 @ 65 ML/HR; FREE WATER FLUSH OF 100 ML Q4H -PROVIDES 1560 ML OF VOLUME, 93 GM OF PROTEIN, AND 1872 KCAL. MEETING 100% OF ESTIMATED KCAL AND PROTEIN NEEDS 2. RECOMMEND VITAMIN C 500 MG DAILY AND A MULTIVITAMIN ONCE DAILY ONCE DAILY 3. RD TO FOLLOW-UP 2-3 DAYS, HIGH RISK YARA ABARCA RD
--- NOTE | 2020-09-26 15:50 | NUR ---
DR. AMIN APPROVED RD RECOMMENDATIONS TO INCREASE GLUCERNA 1.2 TO 65 ML/HR AND REDUCE FREE WATER FLUSH TO 100 MLQ4H; ADD VITAMIN C 500 MG AND MVI DAILY.
--- NOTE | 2020-09-26 19:05 | NUR ---
SPOKE TO DR. AMIN, PT HEART RATE 50. BP CURRENTLY 129/60. ASYMPTOMATIC PER : CONTINUE TO MONITOR. NO INTERVENTION AT THIS TIME
--- NOTE | 2020-09-26 19:33 | NUR ---
RECEIVED PT LETHARGIC , TRACH TO VENT - O2 SAT WNL . ON TELE MONITOR - CR 50 - PER AM NURSE SHE REFERRED TO DR. AMIN BEC. OF CR 50 - PER AM NURSE REFER TO CARDIO CONSULT ORDERED BY DR. AMIN . IV SITES INTACT AND PATENT . G TUBE FEEDING - ON HOLD - DUE TO US OF ABD. TO BE DONE AT 8PM TONITE .- WILL RESUME THE FEEDING AFTRE THE PROCEDURE DONE . FALL RISK - BED ALARM ON . W/ OPEN WOUND ON SACRAL AREAS - ON WOUND BED . - WILL TURN THE PT PER PROTOCOL . PT IS W/ URINE FAULKNER CATH DRAINING CLAER U.O - URINE TO BE COLLECTED AND TO BE SENT TO LAB . SAFETY MEASURES INPLACE . WILL CONT. TO MONITOR - FLACC 0 .
--- NOTE | 2020-09-26 19:33 | NUR ---
ENDORSED TO OBJECT ORIENTED DEVELOPER NURSE FOR CONTINUITY OF CARE. PT STABLE. NO SIGN OF DISTRESS
--- NOTE | 2020-09-26 20:35 | NUR ---
[facility] TURNED ON THE FEEDING PUMP WHEN THEY DID 8PM ROUNDS . - TO SUM UP - US ABD. NOT DONE BEC PT FED BY FEEDING PUMP - WILL INFORM DR. AMIN . Addendum: 09/27/20 at 0405 by Vannesa Bennett RN US ABD. NOT DONE - DR. AMIN INFORM - SHE AWARE THE US TO BE DONE AT 8AM - 09/27.
--- NOTE | 2020-09-26 22:00 | NUR ---
UPDATING DR. LEW - PT IS ON 40'S ( 48 TO 49 , ) O2 SAT WNL , BP 106 / 59 - SEEMS COMFORTABLY RESTING ON BED . FLACC 0 - DR. LEW RESPONDED TO MY TEXT - NO FURTHER ORDERS MADE - HE SAID DR. SNYDER WILL BE DO ROUNDS LUANA . AM . WILL UPDATE DR. SNYDER . Addendum: 09/27/20 at 0400 by Vannesa Bennett RN GI9VE AN UPDATE TO DR. SNYDER - HE SAID HE WILL DO ROUND LUANA . AM - HE AWARE THAT CR OF PT IS 48 - NO FURTHER ORDERS MADE .
[2020-09-26 22:36] LABS: APPEARANCE,URINE CLOUDY (CLEAR); BILIRUBIN,URINE NEGATIVE (NEGATIVE); BLOOD, URINE 3+ (NEGATIVE); COLOR,URINE YELLOW (YELLOW); LEUKOCYTE ESTERASE ,URINE 1+ (NEGATIVE); NITRITE, URINE NEGATIVE (NEGATIVE); PH,URINE 6.5 (5.0-9.0); UGLUCOSE TRACE (NEGATIVE)
[2020-09-26 22:39] LABS: RBC,URINE 0-5 /HPF (0-5)
[2020-09-26 22:40] LABS: WBC,URINE 0-5 /HPF (0-5)
[2020-09-26 22:41] LABS: YEAST,URINE Many /HPF (None Seen)
[2020-09-27] VITALS (16 sets, daily range): BP systolic 85–133; BP diastolic 42–67
--- NOTE | 2020-09-27 | NUR ---
CR 52 , SEEMS COMFORTBALY RESTING ON BED . FLACC O , 02 SAT WNL , BP 100 / 60 - WILL CONT. TO MONITOR - FULL CODE .
[2020-09-27] MEDS: Z-GUARD PASTE TP SCH ×2 (01:00→14:37)
--- NOTE | 2020-09-27 02:00 | NUR ---
CR 48 , O2 SAT 1000 % - WILL CONT. TO MONITOR . BP WNL . HX : CARDIAC ARREST Addendum: 09/27/20 at 0402 by Vannesa Bennett RN HOLD THE FEEDING - FOR US OF ABD. CRAFT 8 AM . CHARGE NURSE INFORM
--- NOTE | 2020-09-27 04:00 | NUR ---
MADE ROUNDS , NO S/X OF ACUTE DISTRESS NOTED . O2 SAT WNL .
[2020-09-27] MEDS: DILTIAZEM 60 MG TAB PO SCH ×2 (05:00→11:43)
[2020-09-27] MEDS: DEXTROSE 10% 1,000 ML IV SCH (05:12)
[2020-09-27 05:26] LABS: BASOPHILS # (AUTO) 0.1 K/uL (0.00-0.22); EOSINOPHILS % (AUTO) 0.2 % (0.0-4.0); HEMATOCRIT 25.7 % (36-52); HEMOGLOBIN 8.5 g/dL (12.0-18.0); LYMPHOCYTES # (AUTO) 0.3 K/uL (2.0-11.5); LYMPHOCYTES % (AUTO) 2.9 % (20.5-51.1); MEAN CORPUSCULAR HEMOGLOBIN 31 pg (27-31); MEAN CORPUSCULAR HGB CONC 33 g/dL (33-37); MEAN CORPUSCULAR VOLUME 93.8 fL (80-94); MONOCYTES # (AUTO) 0.2 K/uL (0.8-1.0); MONOCYTES % (AUTO) 1.7 % (1.7-9.3); NEUTROPHILS # (AUTO) 8.6 K/uL (1.8-7.7); NEUTROPHILS % (AUTO) 94.2 % (42.2-75.2); PLATELET COUNT (AUTO) 141 K/uL (140-450); RED BLOOD CELL COUNT(AUTO) 2.74 MIL/uL (4.20-6.10); RED CELL DISTRIBUTION WIDTH 18.5 % (11.6-13.7); WHITE BLOOD COUNT (AUTO) 9.1 K/uL (4.8-10.8)
[2020-09-27 05:39] LABS: ANION GAP 13.6 (8-16); CARBON DIOXIDE 25.8 mmol/L (21-32); CREATININE 1.9 mg/dL (0.6-1.3); POTASSIUM 4.4 mmol/L (3.5-5.1)
--- NOTE | 2020-09-27 06:00 | NUR ---
O2 SAT WNL . NO S/X OF ACUTE DISTRESS NOTED .
[2020-09-27] MEDS: LEVOTHYROXINE 0.075 MG TAB PO SCH (06:30)
[2020-09-27] MEDS: INSULIN LISPRO SLIDING SCALE 100 UNITS/ML VIAL SUBQ PRN ×3 (06:30→17:01)
[2020-09-27] MEDS: BLOOD GLUCOSE MONITORING 1 DEV DEV FS SCH ×4 (06:42→21:58)
--- NOTE | 2020-09-27 07:20 | NUR ---
ENDORSED - PT - STABLE , I TOLD TO AM NURSE I RELAYED TO DR. THOMPSON THE LATEST BUN - SHE HAVE TO WAIT IF ANY FURTHER ORDER.
--- NOTE | 2020-09-27 07:20 | NUR ---
RECEIVED REPORT FROM NIGHT NURSE FOR CONTINUITY OF CARE. PT IS AWAKE AND APHASIC. PT TRACH TO VENT. VENT SETTING VT 450, FIO2-30,PEEP 5, RR18. PT IS DOING VT- 494, FIO2-29, PEEP-4, RR-18. PT BED BOUND, PT HAS QUIANA 20G AND RAYA 20G INFUSING DEXTROSE 10 AT 100 ML/H. PT HAS A SACRAL WOUND. G-TUBE IN PLACE, FEEDING HELD DUE TO ULTRASOUND. SAFETY MEASURES IN PLACE, WILL CONTINUE TO MONITOR
--- NOTE | 2020-09-27 08:10 | NUR ---
NOTIFIED DR AMIN PT SODIUM 129, BUN 71, CREATININE 1.9
--- NOTE | 2020-09-27 08:28 | NUR ---
NOTIFIED DR AMIN OF PT'S VITALS
[2020-09-27] MEDS: LABETALOL 200 MG TAB GT SCH (09:00)
[2020-09-27] MEDS: ASCORBIC ACID 500 MG TAB PEG SCH (09:39)
[2020-09-27] MEDS: MULTIVITAMIN/MINERALS 1 TAB PEG SCH (09:40)
[2020-09-27] MEDS: TAMSULOSIN 0.4 MG CAP GT SCH (09:40)
[2020-09-27] MEDS: LANSOPRAZOLE 30 MG CAPDR GT SCH (09:52)
--- NOTE | 2020-09-27 09:52 | NUR ---
ADMINISTERED SCHEDULED MEDICATION, PT TOLERATED WELL. PT BP 110/52, HR 44, O2: 94. WILL CONTINUE TO MONITOR.
[2020-09-27] MEDS ORDERED: EPINEPHrine 1:1000 (1 mg/mL) 1 MG in DEXTROSE 5% 250 ML IV PRN (10:15)
--- NOTE | 2020-09-27 10:19 | NUR ---
RECEIVED VERBAL ORDER FROM DR BEDOLLA FOR EKG, PICC LINE TRANSFER TO ICU. WILL INPUT ORDER
--- NOTE | 2020-09-27 10:29 | NUR ---
NOTIFIED SANJEEV, PT'S GRANDDAUGHTER, PT WILL BE TRANSFERED TO ICU. ASKED IF PT WILL BE FULL CODE. THERE ARE DISCUSSION PT WILL BE ON HOSPICE, BUT PT IS ON FULL CODE. PER FAMILY, WANT PT TO BE IN LESS PAIN. DO NOT WANT CEC.
--- NOTE | 2020-09-27 10:33 | NUR ---
SPOKE WITH PT'S DAUGHTER OLGA, ASKED IF PT WAS ON HOSPICE, DNR STATUS. PER FAMILY, THEY WILL SPEAK WITH THE DR AND ARE AWAITING THE DR PHONE CALL.
--- NOTE | 2020-09-27 10:37 | NUR ---
NOTIFIED DR AMIN PT FAMILY WANT TO SPEAK WITH HER. CONTACT NUMBER [phone] PROVIDED FOR OLGA.
--- NOTE | 2020-09-27 10:40 | NUR ---
EPI DRIP STARTED AT 1MCG/MIN FOR 85/48
--- NOTE | 2020-09-27 10:55 | NUR ---
[facility] [phone] CALLED FOR REPORT
[2020-09-27 11:00] LABS: CREATININE,URINE RANDOM 15 mg/dL (30-125); URINE SODIUM, RANDOM 52 mmol/l (40-220)
--- NOTE | 2020-09-27 11:03 | NUR ---
ENDORSE PT TO ICU NURSE FOR CONTINUITY OF CARE. FAMILY AWARE PT IS BEING TRANSFERRED TO ICU.
--- NOTE | 2020-09-27 11:15 | NUR ---
1005 ASSESS PT FOR HEART SOUND, UNABLE TO AUSCULTATE HEART SOUND, HR AR 47, UNABLE TO FEEL RADIAL PULSE. CALLED CODE BLUE. CODE TEAM ARRIVED.
--- NOTE | 2020-09-27 11:45 | NUR ---
DAUGHTER OLGA AND GRANDDAUGHTER SANJEEV AT BEDSIDE.
--- NOTE | 2020-09-27 12:00 | NUR ---
ORDER CLARIFIED WITH DR AMIN, PT NOW DNR AND DOWN GRADED TO MEDSURG STATUS.
--- NOTE | 2020-09-27 13:02 | NUR ---
WOUND CARE DONE, CLEANSED WITH NS, PAT DRY, THERA HONEY OPTIFOAM APPLIED, BED BATH GIVEN BY AIR AND HYDRONIC BALANCING TECHNICIAN, FAULKNER CARE, CHG WIPE DONE, POSITIONED FOR COMFORT, PT WILLIAM WELL.
--- NOTE | 2020-09-27 14:30 | NUR ---
RECEIVED REPORT FROM ICU NURSE FOR CONTINUITY OF CARE. PT IS NOW DNR.
--- NOTE | 2020-09-27 14:30 | NUR ---
REPORT GIVEN TO LAKESHA HEBERT, BP NOW 95/42, HR 49, O2SAT 90%.
[2020-09-27] MEDS: THERAHONEY GEL 42.5 GM TP SCH (14:36)
--- NOTE | 2020-09-27 17:01 | NUR ---
ADMINISTERED 6 UNITS OF HUMALOG FOR GLUCOSE OF 296, PT IS NOW DNR. PT NON-RESPONSIVE. WILL CONTINUE TO MONITOR.
--- NOTE | 2020-09-27 17:11 | NUR ---
NOTIFIED DR AMIN PT HAS O2: 82, AND HR 50. MD AWARE OF CONTINUAL BRADYCARDIA.
--- NOTE | 2020-09-27 17:23 | NUR ---
START PT FEEDING GLUCERNA 1.2 AT 30 ML/H PER DR ELOISA RAMOS ORDER. PT HR 42, RT INCREASED FIO2 40%. WILL CONTINUE TO MONITOR.
--- NOTE | 2020-09-27 19:00 | NUR ---
PATIENT RECEIVED IN BED ALERT AND ORIENTED X 0, ON TRACH TO VENT, APHASIC. NO S/S RESPIRATORY DISTRESS. FIO2 28%, TV 450 RATE 18 PEEP 5. PATIENT SEEN AND EVALUATED AND SUCTIONED BY RESPIRATORY THERAPIST. SKIN WARM AND DRY. G TUBE IN PLACE INFUSING GLUCERNA 1.2 L @ 30CC/HR WITH WATER FLUSH 100 CC/Q4H, IV SITE TO QUIANA 20G AND RFA 20G PATENT AND INTACT. FAULKNER CATH IN PLACE, DRAINING YELLOW URINE. HAS SACRAL PRESSURE COVERED WITH FOAM DRESSING, NO DRAINAGE. SAFETY MEASURES IN PLACE. BED IN LOW POSITION AND CALL LIGHT WITHIN REACH. WILL CONTINUE TO MONITOR
--- NOTE | 2020-09-27 19:23 | NUR ---
RECEIVED TRACH PT ON VENT WITH A PORTEX 7 TRACH. PT HAS EYES OPEN BUT IS NOT ALERT. PT SUCTIONED OBTAINED SMALL AMOUNT OF CLEAR SECRETIONS, PT HAS NO ACTIVE GAG REFLEX. AIRWAY IS PATENT AND TRACH IS SECURE. VENT IS PLUGGED INTO A RED OUTLET WITH ALARMS ON AND FUNCTIONING WILL CONTINUE TO MONITOR.
--- NOTE | 2020-09-27 19:25 | NUR ---
ENDORSE PT TO NIGHT NURSE FOR CONTINUITY OF CARE
--- NOTE | 2020-09-27 23:40 | NUR ---
FIO2 TITRATED TO 32% PT NOT IN ANY DISTRESS AT THIS TIME. VENT ALARMS ON AND FUNCTIONING. WILL CONTINUE TO MONITOR.
[2020-09-28] VITALS: BP 110/56
--- NOTE | 2020-09-28 | NUR ---
PATIENT SLEEPING DURING ROUNDING. EASILY AROUSED. FIO2 TITRATED TO 28% PT NOT IN ANY DISTRESS AT THIS TIME. VENT ALARMS ON AND FUNCTIONING. NO ACUTE DISTRESS NOTED. WILL CONTINUE TO MONITOR.
[2020-09-28] MEDS: Z-GUARD PASTE TP SCH ×2 (01:00→12:30)
[2020-09-28 03:00] VITALS: BP 108/60
[2020-09-28 04:58] VITALS: BP 122/71
[2020-09-28] MEDS: LEVOTHYROXINE 0.075 MG TAB PO SCH (05:38)
[2020-09-28 05:52] LABS: BASOPHILS % (AUTO) 0.1 % (0.0-2.0); EOSINOPHILS # (AUTO) 0.2 K/uL (0-0.4); EOSINOPHILS % (AUTO) 1.6 % (0.0-4.0); HEMATOCRIT 26.2 % (36-52); HEMOGLOBIN 8.7 g/dL (12.0-18.0); LYMPHOCYTES # (AUTO) 0.5 K/uL (2.0-11.5); LYMPHOCYTES % (AUTO) 3.8 % (20.5-51.1); MEAN CORPUSCULAR HEMOGLOBIN 31 pg (27-31); MEAN CORPUSCULAR HGB CONC 33 g/dL (33-37); MEAN CORPUSCULAR VOLUME 93.5 fL (80-94); MONOCYTES # (AUTO) 0.4 K/uL (0.8-1.0); MONOCYTES % (AUTO) 2.9 % (1.7-9.3); NEUTROPHILS # (AUTO) 12.2 K/uL (1.8-7.7); NEUTROPHILS % (AUTO) 91.6 % (42.2-75.2); PLATELET COUNT (AUTO) 174 K/uL (140-450); RED CELL DISTRIBUTION WIDTH 18.4 % (11.6-13.7); WHITE BLOOD COUNT (AUTO) 13.3 K/uL (4.8-10.8)
[2020-09-28] MEDS: BLOOD GLUCOSE MONITORING 1 DEV DEV FS SCH ×4 (05:57→20:34)
[2020-09-28 05:59] LABS: ANION GAP 12.5 (8-16); CARBON DIOXIDE 26.2 mmol/L (21-32); POTASSIUM 4.7 mmol/L (3.5-5.1)
--- NOTE | 2020-09-28 06:30 | NUR ---
RN MESSAGED DR. PELAYO REGARDING PATIENT LAB RESULTS: CREATINE 3.0, BUN 73. PENDING PHYSICIAN FOLLOW UP. ONCOMING RN RAZA INFORMED OF PATIENT LAB RESULTS AND FOLLOW UP WITH PHYSICIAN CONTACT. NO ACUTE DISTRESS NOTED. ONGOING CARE CONTINUED.
--- NOTE | 2020-09-28 07:30 | NUR ---
RECEIVED REPORT FROM NIGHT NURSE FOR CONTINUITY OF CARE. PT IN BED EYES OPEN, NONRESPONSIVE TO VERBAL COMMANDS, RESPONSIVE TO DEEP PAIN, APHASIC. PT TRACH TO VENT. VENT SETTING VT 450, FIO2-28,PEEP 5, RR18. WITH RFA 20G AND RAYA 18G SALINE LOCKED. PT HAS A SACRAL WOUND, COVERED WITH OPTIFOAM DRESSING. PEG IN PLACE, CONNECTED TO FEEDING. SAFETY MEASURES IN PLACE, WILL CONTINUE TO MONITOR
[2020-09-28 08:00] VITALS: BP 129/59
--- NOTE | 2020-09-28 09:15 | NUR ---
PATIENT ON TRACH TO VENT SATURATING AT 95. FEEDING WAS OFF AND G TUBE CLAMPED. CHECKED RESIDUAL, 10 ML, RETURNED RESIDUAL AND FLUSHED. ADMINISTERED SCHEDULED AM MEDS. WILL CONTINUE TO MONITOR.
[2020-09-28] MEDS: ASCORBIC ACID 500 MG TAB PEG SCH (09:18)
[2020-09-28] MEDS: TAMSULOSIN 0.4 MG CAP GT SCH (09:18)
[2020-09-28] MEDS: LANSOPRAZOLE 30 MG CAPDR GT SCH (09:18)
[2020-09-28] MEDS: MULTIVITAMIN/MINERALS 1 TAB PEG SCH (09:18)
--- NOTE | 2020-09-28 10:00 | NUR ---
ORAL CARE, HYGIENE CARE, CHG BATH, AND FAULKNER CARE PROVIDED. WILL CONTINUE TO MONITOR.
--- NOTE | 2020-09-28 11:10 | NUR ---
CHECKED ON PATIENT. NO SIGNS OF DISTRESS. CLEANED PATIENT WITH ASSIST OF FINE GRADER. PATIENT TURNED. WILL CONTINUE TO MONITOR.
--- NOTE | 2020-09-28 11:30 | NUR ---
CHECKED BLOOD SUGAR, 39, RECHECK 41, ADMINISTERED PRN D50 GLUCOSE. WILL RECHECK BLOOD SUGAR. WILL CONTINUE TO MONITOR.
[2020-09-28] MEDS: DEXTROSE 50% 50 ML SYR IVP PRN (11:42)
--- NOTE | 2020-09-28 12:25 | NUR ---
CHECKED ON PATIENT. NO SIGNS OF DISTRESS. RECHECKED BLOOD SUGAR, 103, WILL CONTINUE TO MONITOR.
[2020-09-28] MEDS: THERAHONEY GEL 42.5 GM TP SCH (12:30)
[2020-09-28] MEDS ORDERED: NACL 0.9% 500 ML IV SCH (12:45)
--- NOTE | 2020-09-28 13:00 | NUR ---
, ROUNDING UPDATED ON PATIENT STATUS AND AWARE OF LOW NA. ORDERED 500ML BOLUS AND THEN NS AT 75ML. WILL CONTINUE TO MONITOR.
[2020-09-28] MEDS: NACL 0.9% 1,000 ML IV SCH (13:21)
[2020-09-28] MEDS ORDERED: FLUCONAZOLE 200 MG/NS PREMIX 100 ML IV SCH (13:25)
--- NOTE | 2020-09-28 15:09 | NUR ---
09/28/20 RD INITIAL ASSESSMENT COMPLETED PLEASE REFER TO NUTRITION ASSESSMENT UNDER CARE ACTIVITY FOR ESTIMATED NUTRITIONAL NEEDS. 1. CONTINUE GLUCERNA 1.2 @ 30 ML/HR PER MD; FREE WATER FLUSH OF 100 ML Q4H -PROVIDES 864 KCAL AND 54 GM OF PROTEIN, WHICH MEETS 46% ESTIMATED KCAL AND 58% OF PROTEIN NEEDS. 2. CONTINUE VITAMIN C 500 MG DAILY AND A MULTIVITAMIN ONCE DAILY ONCE DAILY 3. RD TO FOLLOW-UP 2-3 DAYS, HIGH RISK YARA ABARCA RD
--- NOTE | 2020-09-28 15:44 | NUR ---
PATIENT PLACED ON T PEACE 2L BLEED IN AT 1310 SATURATING 97 HR 76. PATIENT SATURATING 100 HR 90 AT 1330, abg ordered
[2020-09-28 16:00] VITALS: BP 159/91
[2020-09-28] MEDS: FLUCONAZOLE 200 MG/NS PREMIX 100 ML IV SCH (16:35)
--- NOTE | 2020-09-28 16:36 | NUR ---
CHECKED ON PATIENT, NO SIGNS OF DISTRESS OR PAIN. FOUND FEEDING TUBE OFF, RESTARTED FEEDING. CHECKED BLOOD SUGAR, 64. WILL CONTINUE TO MONITOR.
--- NOTE | 2020-09-28 18:35 | NUR ---
CHANGED PATIENTS FAULKNER CATH PER DR. SEWELL. WILL COLLECT SPECIMEN WHEN MORE URINE OUTPUT IS AVAILABLE. WILL CONTINUE TO MONITOR. WILL ENDORSE TO OFFICE ADMINISTRATION RN.
--- NOTE | 2020-09-28 19:20 | NUR ---
RECEIVED BEDSIDE REPORT FROM DAY SHIFT NURSE FOR CONTINUITY OF CARE. PT IS AWAKE, LAYING IN SEMI FOWLERS POSITION WITH EYES OPEN. PT DOES NOT RESPOND TO NAME. ON TRACH TO VENT WITH BREATHING UNLABORED. FIO2 35%, PEEP 6, VT 450, AND RT 26. O2 SAT IS 98%. FAULKNER CATH IN PLACE. DAY SHIFT NURSE PLACED NEW CATHETER TODAY TO OBTAIN CLEAN URINE SAMPLE, BUT NO OUTPUT WAS MADE. WILL COLLECT WHEN URINE IS IN COLLECTION BAG. G TUBE IN PLACE RUNNING GLUCERNA AT 30 ML PER HOUR PER ORDER. SKIN IS WARM AND DRY. SACRAL WOUND, OPEN. OPTIFOAM AND THERAHONEY IN PLACE. IV IS IN THE LEFT UPPER ARM 18 GAUGE RUNNING NS AT 75 ML PER HOUR PER ORDER. PT IS STABLE AT THIS TIME. PLAN OF CARE DISCUSSED.
--- NOTE | 2020-09-28 19:28 | NUR ---
ENDORSED CARE TO VICE PRESIDENT PHARMACY NURSE, ANNMARIE HEBERT, FOR CONTINUITY OF CARE. PATIENT IS IN NO SIGN OF DISTRESS. TRACH TO VENT. IVS CLEAN DRY AND INTACT, INFUSING NS AT 75ML/HR. G-TUBE IN PLACE, RUNNING AT 30ML/HR. NURSE AWARE OF LOW BLOOD SUGAR, REFER TO NOTES. ENDORSED URINE CULTURE.
[2020-09-28 20:00] VITALS: BP 144/78
--- NOTE | 2020-09-28 21:00 | NUR ---
BS READING WAS 64. PT WAS GIVEN ORANGE JUICE. WILL CONTINUE TO MONITOR BS.
--- NOTE | 2020-09-28 21:30 | NUR ---
G TUBE RESIDUAL IS LESS THAN 5 ML. G TUBE FEEDING PUMP IS ALARMING. G TUBE PUMP WAS REPLACED AND WORKING CORRECTLY. FEEDING IS INFUSING ORDERED. PT IS TOLERATING FEEDING WELL. TRACH TO VENT WITH O2 SAT AT 98%. FIO2 HAS BEEN INCREASED TO 40% BY RT ASSIGNED TO PT. IV FLUIDS ARE PATENT AND INFUSING ORDERED. PT IS REPOSITIONED AND PILLOWS WERE USED TO SUPPORT BONY REGIONS. FLACC 0. PT IS STABLE.
--- NOTE | 2020-09-28 23:30 | NUR ---
PT WAS REPOSITIONED. NO RESPIRATORY DISTRESS NOTED. O2 SAT IS 100%. IV IS PATENT AND INFUSING. G TUBE FEEDING IS RUNNING. G TUBE RESIDUAL IS 5 ML. PT IS STABLE.
[2020-09-29] MEDS: Z-GUARD PASTE TP SCH ×2 (00:06→13:35)
--- NOTE | 2020-09-29 01:30 | NUR ---
ORAL CARE WAS PROVIDED. PT TOLERATED THIS WELL. NO DISTRESS NOTED. CHEST RISE AND FALL IS SYMMETRICAL. BREATHING IS UNLABORED. PT WAS REPOSITIONED AND PILLOWS WERE USED TO ELEVATE EXTREMITIES. SCD'S IN PLACE. WILL CONTINUE TO MONITOR.
[2020-09-29] MEDS: NACL 0.9% 1,000 ML IV SCH ×2 (02:23→15:30)
[2020-09-29 03:22] LABS: APPEARANCE,URINE CLOUDY (CLEAR); BILIRUBIN,URINE NEGATIVE (NEGATIVE); BLOOD, URINE 3+ (NEGATIVE); COLOR,URINE RED (YELLOW); LEUKOCYTE ESTERASE ,URINE 3+ (NEGATIVE); NITRITE, URINE NEGATIVE (NEGATIVE); PH,URINE 6.5 (5.0-9.0); UGLUCOSE NEGATIVE (NEGATIVE)
[2020-09-29 03:30] LABS: RBC,URINE >20 (MANY) /HPF (0-5)
--- NOTE | 2020-09-29 03:30 | NUR ---
PT IS ASLEEP. CHEST RISE AND FALL IS SYMMETRICAL. TRACH TO VENT WITH O2 SAT AT 100%. NO RESPIRATORY DISTRESS NOTED. IV FLUIDS ARE INFUSING. G TUBE FEEDING IS INFUSING. G TUBE FEEDING RESIDUAL IS 5 ML. PT IS STABLE.
[2020-09-29 03:31] LABS: WBC,URINE >25 (MANY) /HPF (0-5); YEAST,URINE Many /HPF (None Seen)
[2020-09-29 04:00] VITALS: BP 138/74
[2020-09-29 05:39] LABS: HEMATOCRIT 24.7 % (36-52); HEMOGLOBIN 8.2 g/dL (12.0-18.0); MEAN CORPUSCULAR HEMOGLOBIN 31 pg (27-31); MEAN CORPUSCULAR HGB CONC 33 g/dL (33-37); MEAN CORPUSCULAR VOLUME 93.1 fL (80-94); PLATELET COUNT (AUTO) 141 K/uL (140-450); RED BLOOD CELL COUNT(AUTO) 2.65 MIL/uL (4.20-6.10); RED CELL DISTRIBUTION WIDTH 18.1 % (11.6-13.7); WHITE BLOOD COUNT (AUTO) 11.2 K/uL (4.8-10.8)
[2020-09-29] MEDS: BLOOD GLUCOSE MONITORING 1 DEV DEV FS SCH ×4 (05:39→21:00)
--- NOTE | 2020-09-29 05:40 | NUR ---
PT'S BS READING WAS 68. PT WAS GIVEN APPLE JUICE. WILL CONTINUE TO MONITOR BS.
[2020-09-29 05:43] LABS: ANION GAP 13.9 (8-16); CARBON DIOXIDE 23.3 mmol/L (21-32); CREATININE 2.1 mg/dL (0.6-1.3); POTASSIUM 5.2 mmol/L (3.5-5.1)
[2020-09-29] MEDS: LEVOTHYROXINE 0.075 MG TAB PO SCH (05:56)
[2020-09-29 07:11] LABS: EOSINOPHILS % (MANUAL) 5 % (0-4)
[2020-09-29 07:12] LABS: LYMPHOCYTES % (MANUAL) 12 % (20-46)
[2020-09-29 07:13] LABS: MONOCYTES % (MANUAL) 4 % (5-12)
--- NOTE | 2020-09-29 07:21 | NUR ---
ENDORSED PT TO DAY SHIFT NURSE FOR CONTINUITY OF CARE. O2 SAT IS 100%, TRACH TO VENT. PT IS STABLE AT THIS TIME. PLAN OF CARE DISCUSSED.
--- NOTE | 2020-09-29 07:57 | NUR ---
RECEIVED PT ALERT. WITHDRAWS TO PAIN STIMULI. ON TRACH TO VENT AC/PRVC TV 450, FIO2 30%, PEEP 6, RR 26. NO SIGN RESPIRATORY DISTRESS. ON GT FEEDING GLUCERNA 30. NO ABDOMINAL DISTENTION. KEPT HOB ELEVATED. QUIANA PERIPHERAL IV INTACT WITH NS AT 75 ML/HR. RFA PIV 20G INTACT. FAULKNER CATH IN PLACE, DRAINING CLEAR YELLOW URINE. PT TURNED TO SIDE. REPORT RECEIVED FROM SENIOR PHP SOFTWARE DEVELOPER RN. POC DISCUSSED.
[2020-09-29 08:00] VITALS: BP 113/80
[2020-09-29] MEDS: LANSOPRAZOLE 30 MG CAPDR GT SCH (08:25)
[2020-09-29] MEDS: MULTIVITAMIN/MINERALS 1 TAB PEG SCH (08:25)
[2020-09-29] MEDS: ASCORBIC ACID 500 MG TAB PEG SCH (08:26)
[2020-09-29] MEDS: TAMSULOSIN 0.4 MG CAP GT SCH (08:26)
--- NOTE | 2020-09-29 08:41 | NUR ---
SCROTAL SWELLING NOTED. REPOSITIONING DONE. MEDS GIVEN. WILL CONTINUE TO MONITOR.
[2020-09-29 09:23] LABS: MAGNESIUM 2.7 mg/dL (1.8-2.4); PHOSPHORUS 6.4 mg/dL (2.5-4.9)
[2020-09-29] MEDS ORDERED: SODIUM ZIRCONIUM CYCLOSILICATE 10 GM POWD.PACK PO SCH (11:00)
--- NOTE | 2020-09-29 11:14 | NUR ---
RENDERED AM CARE. SACRAL WOUND DRESSING CHANGED. PHOTO TAKEN (POSSIBLE DC TODAY).
--- NOTE | 2020-09-29 11:57 | NUR ---
BS 88. NO SIGNS OF DISTRESS. SEEN DR. MANUEL. MADE AWARE PT'S DC PLANNING.
[2020-09-29] MEDS: THERAHONEY GEL 42.5 GM TP SCH (13:35)
--- NOTE | 2020-09-29 14:00 | NUR ---
TUBE FEEDING RATE INCREASED TO 40 ML/HR. NO RESIDUAL NOTED. NO ABDOMINAL DISTENTION.
[2020-09-29] MEDS ORDERED: SYN.075 PO (14:03)
[2020-09-29] MEDS ORDERED: LANS30EC68 GT (14:03)
[2020-09-29] MEDS: FLUCONAZOLE 200 MG/NS PREMIX 100 ML IV SCH (15:23)
--- NOTE | 2020-09-29 15:30 | NUR ---
NOTIFIED DR. MOORE REGARDING DIFLUCAN IV ABX ORDER. ORDER IS ONE TIME ONLY.OK NOT TO CONTINUE IF FAULKNER CATH HAS CHANGED TOGETHER WITH UC TEST.
[2020-09-29 16:00] VITALS: BP 111/81
--- NOTE | 2020-09-29 19:00 | NUR ---
REPORT GIVEN TO MILITARY PROFESSIONAL RN. POC DISCUSSED. PT IS RESTING WITH NO S/S OF DISTRESS. NO CHANGE OF CONDITION.
--- NOTE | 2020-09-29 19:01 | NUR ---
RECEIVING PATIENT FROM AM NURSE FOR CONTINUITY OF CARE. PATIENT IS APHASIC. TRACH TO VENT, FIO2 28%, TV 450, PEEP 5, RATE 18, O2 SAT 97%, NO SIGN OF RESPIRATORY DISTRESS NOTED. SKIN WARM, DRY, NON-DIAPHORETIC, SACRAL WOUND NOTED. G-TUBE IN PLACE, FEEDING IS RUNNING. FAULKNER IN PLACE. PLAN OF CARE DISCUSSED. PRECAUTION IN PLACE. CALL LIGHT WITHIN REACH. WILL CONTINUE TO MONITOR.
[2020-09-29 20:00] VITALS: BP 130/91
--- NOTE | 2020-09-29 21:00 | NUR ---
BLOOD SUGAR CHECK 78. APPLE JUICE WAS GIVEN THROUGH G-TUBE. RESIDUAL 0 ML. INCREASED FEEDING RATE 65ML/HR. ORAL CARE WAS GIVEN. PATIENT TOLERATED WELL. RE- POSITION, NO BM NOTED. HOB ELEVATED. PRECAUTION IN PLACE. CALL LIGHT WITHIN REACH. WILL CONTINUE TO MONITOR.
--- NOTE | 2020-09-29 23:00 | NUR ---
ROUND CHECK. PATIENT IS RESTING. NO SIGN OF RESPIRATORY DISTRESS NOTED. O2 SAT 94%. WILL CONTINUE TO MONITOR.
[2020-09-30] MEDS: Z-GUARD PASTE TP SCH ×2 (01:27→14:24)
--- NOTE | 2020-09-30 01:30 | NUR ---
CHANGE PATIENT POSITION. PROVIDED CATHETER CARE, AND ORAL CARE. PATIENT TOLERATED WELL. NO SIGN OF RESPIRATORY DISTRESS NOTED. O2 SAT 99%. PRECAUTION IN PLACE. CALL LIGHT WITHIN REACH. WILL CONTINUE TO MONITOR.
--- NOTE | 2020-09-30 03:58 | NUR ---
ROUND CHECK. PATIENT IS SLEEPING. NO SIGN OF RESPIRATORY DISTRESS NOTED, O2 SAT 95%. HOB ELEVATED. PRECAUTION IN PLACE. WILL CONTINUE TO MONITOR.
[2020-09-30] MEDS: NACL 0.9% 1,000 ML IV SCH ×2 (04:49→19:54)
--- NOTE | 2020-09-30 05:30 | NUR ---
ROUND CHECK. PATIENT IS RESTING. HOB ELEVATED. NO SIGN OF RESPIRATORY DISTRESS NOTED. WILL CONTINUE TO MONITOR.
[2020-09-30 05:51] LABS: ANION GAP 14.9 (8-16); CARBON DIOXIDE 22.7 mmol/L (21-32); CREATININE 2.2 mg/dL (0.6-1.3); POTASSIUM 5.6 mmol/L (3.5-5.1)
[2020-09-30 06:02] LABS: BASOPHILS # (AUTO) 0.1 K/uL (0.00-0.22); BASOPHILS % (AUTO) 0.4 % (0.0-2.0); EOSINOPHILS # (AUTO) 1.7 K/uL (0-0.4); EOSINOPHILS % (AUTO) 12.6 % (0.0-4.0); HEMATOCRIT 27.7 % (36-52); HEMOGLOBIN 9.1 g/dL (12.0-18.0); LYMPHOCYTES # (AUTO) 0.9 K/uL (2.0-11.5); LYMPHOCYTES % (AUTO) 6.7 % (20.5-51.1); MEAN CORPUSCULAR HEMOGLOBIN 31 pg (27-31); MEAN CORPUSCULAR HGB CONC 33 g/dL (33-37); MEAN CORPUSCULAR VOLUME 93.7 fL (80-94); MONOCYTES # (AUTO) 0.3 K/uL (0.8-1.0); MONOCYTES % (AUTO) 2.6 % (1.7-9.3); NEUTROPHILS # (AUTO) 10.5 K/uL (1.8-7.7); NEUTROPHILS % (AUTO) 77.7 % (42.2-75.2); PLATELET COUNT (AUTO) 152 K/uL (140-450); RED BLOOD CELL COUNT(AUTO) 2.96 MIL/uL (4.20-6.10); RED CELL DISTRIBUTION WIDTH 18.4 % (11.6-13.7); WHITE BLOOD COUNT (AUTO) 13.5 K/uL (4.8-10.8)
[2020-09-30] MEDS: BLOOD GLUCOSE MONITORING 1 DEV DEV FS SCH ×5 (06:11→20:45)
[2020-09-30] MEDS: LEVOTHYROXINE 0.075 MG TAB PO SCH (06:24)
--- NOTE | 2020-09-30 06:28 | NUR ---
BLOOD SUGAR CHECK 101. NO INSULIN NEEDED. HOB ELEVATED. NO SIGN OF RESPIRATORY DISTRESS NOTED. WILL CONTINUE TO MONITOR.
--- NOTE | 2020-09-30 07:25 | NUR ---
RECEIVED REPORT FROM NIGHT NURSE FOR CONTINUITY OF CARE. PT TRACH TO VENT. PT HAS FRA 20G SALINE LOCK, QUIANA 18 INFUSING NA AT 75ML/H, PT HAS SACRAL WOUND. G-TUBE IN PLACE INFUSING GLUCERNA AT 65ML/H WITH WATER FLUSH OF 100 ML Q4H. SAFETY MEASURES IN PLACE, WILL CONTINUE TO MONITOR.
--- NOTE | 2020-09-30 07:25 | NUR ---
ENDORSED PATIENT TO AM NURSE FOR CONTINUITY OF CARE. NO SIGN OF DISTRESS NOTED. O2 SAT 95%. PATIENT IS STABLE.
[2020-09-30 08:00] VITALS: BP 139/92
[2020-09-30] MEDS: ASCORBIC ACID 500 MG TAB PEG SCH (08:39)
[2020-09-30] MEDS: LANSOPRAZOLE 30 MG CAPDR GT SCH (08:39)
[2020-09-30] MEDS: TAMSULOSIN 0.4 MG CAP GT SCH (08:39)
[2020-09-30] MEDS: MULTIVITAMIN/MINERALS 1 TAB PEG SCH (08:39)
--- NOTE | 2020-09-30 08:49 | NUR ---
ADMINISTERED SCHEDULED MEDICATION, MEDICATION EDUCATION PROVIDED. PT TOLERATED WELL. PT TRACH TO VENT, NONRESPONSIVE. PT GETTING A EKG DONE. WILL CONTINUE TO MONITOR.
[2020-09-30] MEDS ORDERED: SODIUM ZIRCONIUM CYCLOSILICATE 10 GM POWD.PACK PO SCH (09:00)
--- NOTE | 2020-09-30 11:45 | NUR ---
PT BLOOD GLUCOSE 108, NO COVERAGE NEEDED.
[2020-09-30] MEDS ORDERED: FUROSEMIDE 20 MG/2 ML VIAL IVP SCH (14:00)
[2020-09-30 14:04] LABS: ALBUMIN 1.7 g/dL (3.4-5.0); BILIRUBIN,DIRECT 0.3 mg/dL (0.0-0.3); TOTAL BILIRUBIN 0.8 mg/dL (0.0-1.0)
--- NOTE | 2020-09-30 14:12 | NUR ---
09/30/20 RD FOLLOW UP COMPLETED PLEASE REFER TO NUTRITION ASSESSMENT UNDER CARE ACTIVITY FOR ESTIMATED NUTRITIONAL NEEDS. 1. RECOMMEND NEPRO 1.8 @ 50 ML/HR; FLUSH 100 ML Q6H -PROVIDES 2160 KCAL AND 97 GM OF PROTEIN, WHICH MEETS 100% ESTIMATED KCAL AND 100% OF PROTEIN NEEDS. 2. CONTINUE VITAMIN C 500 MG DAILY AND A MULTIVITAMIN ONCE DAILY ONCE DAILY 3. RD TO FOLLOW-UP 2-3 DAYS, HIGH RISK YARA ABARCA, RD
[2020-09-30] MEDS: THERAHONEY GEL 42.5 GM TP SCH (14:24)
[2020-09-30] MEDS ORDERED: FLUCONAZOLE 100 MG TAB GT SCH (15:00)
--- NOTE | 2020-09-30 15:20 | NUR ---
ADMINISTERED SCHEDULED MEDICATION, MEDICATION EDUCATION PROVIDED. PT BP148/86, HR 83, O2 92. PT TRACH TO VENT. WILL CONTINUE TO MONITOR.
[2020-09-30 16:00] VITALS: BP 154/85
--- NOTE | 2020-09-30 17:30 | NUR ---
BAGGED PT TO CT SCAN AT 1700 AND RETURNED WITH NO ISSUES. PT IS BACK ON VENTILATOR.
--- NOTE | 2020-09-30 17:32 | NUR ---
TOOK PT TO HAVE CT OF HEAD DONE. RT PRESENT. PT TOLERATED WELL. PT BACK IN ROOM. PT TRACH TO VENT, WILL CONTINUE TO MONITOR.
--- NOTE | 2020-09-30 19:27 | NUR ---
ENDORSE PT TO NIGHT NURSE FOR CONTINUITY OF CARE
[2020-09-30 20:00] VITALS: BP 155/88
[2020-09-30] MEDS: FERROUS SULFATE 300 MG/5 ML UDC GT SCH (20:57)
--- NOTE | 2020-10-01 | NUR ---
MADE ROUNDS , NO S/X OF ACUTE DISTRESS NOTED . WILL CONT. TO MONITOR .
--- NOTE | 2020-10-01 | NUR ---
HOLD FEEDING - NPO - FOR HD SCAN
[2020-10-01] MEDS ORDERED: DEXT 5% /NACL 0.9% 1,000 ML IV SCH (01:20)
[2020-10-01] MEDS: Z-GUARD PASTE TP SCH ×2 (01:37→13:40)
--- NOTE | 2020-10-01 02:45 | NUR ---
STARTING 24HR URINE PROTEIN COLLECTION
--- NOTE | 2020-10-01 04:00 | NUR ---
O2 SAT WNL . NO S/X OF ACUTE DISTRESS NOTED . 02 SAT WNL .
--- NOTE | 2020-10-01 06:05 | NUR ---
ACCU CHECK - 61 - NPO - WILL MEDICATE .
[2020-10-01] MEDS: LEVOTHYROXINE 0.1 MG TAB PO SCH (06:11)
[2020-10-01] MEDS: DEXTROSE 50% 50 ML SYR IVP PRN (06:13)
--- NOTE | 2020-10-01 07:00 | NUR ---
RE CHECK BLOOD SUGAR - 146 .
--- NOTE | 2020-10-01 07:30 | NUR ---
ENDORSED - PT - STABLE .
--- NOTE | 2020-10-01 07:35 | NUR ---
PATIENT IS NOW UNDERGOING HIDA SCAN PROCEDURE. SCREEN PRINTING PASTER SAYS PROCEDURE WILL BE COMPLETED WITHIN 1-2 HOURS. PT IS STABLE AT THE MOMENT.
[2020-10-01 07:36] LABS: BASOPHILS # (AUTO) 0.1 K/uL (0.00-0.22); BASOPHILS % (AUTO) 0.4 % (0.0-2.0); EOSINOPHILS # (AUTO) 5.7 K/uL (0-0.4); EOSINOPHILS % (AUTO) 41.4 % (0.0-4.0); HEMATOCRIT 26.3 % (36-52); HEMOGLOBIN 8.8 g/dL (12.0-18.0); LYMPHOCYTES # (AUTO) 0.9 K/uL (2.0-11.5); LYMPHOCYTES % (AUTO) 6.4 % (20.5-51.1); MEAN CORPUSCULAR HEMOGLOBIN 31 pg (27-31); MEAN CORPUSCULAR HGB CONC 34 g/dL (33-37); MEAN CORPUSCULAR VOLUME 93.6 fL (80-94); MONOCYTES # (AUTO) 0.3 K/uL (0.8-1.0); MONOCYTES % (AUTO) 2.1 % (1.7-9.3); NEUTROPHILS # (AUTO) 6.8 K/uL (1.8-7.7); NEUTROPHILS % (AUTO) 49.7 % (42.2-75.2); RED BLOOD CELL COUNT(AUTO) 2.81 MIL/uL (4.20-6.10); RED CELL DISTRIBUTION WIDTH 18.6 % (11.6-13.7); WHITE BLOOD COUNT (AUTO) 13.7 K/uL (4.8-10.8)
--- NOTE | 2020-10-01 07:37 | NUR ---
RECEIVED TRACH PT WITH PORTEX 7 TRACH ON VENT. SETTINGS PRVC 18, VT450, PEEP 5 AND FIO2 24%. PT SUCTIONED OBTAINED SMALL AMOUNT OF THIN CLEAR/WHITE SECRETIONS, PT DOES NOT HAVE ACTIVE GAG REFLEX. PT NOT IN ANY DISTRESS AT THIS TIME. VENT ALARMS ON AND FUNCTIONING. WILL CONTINUE TO MONITOR.
[2020-10-01 07:40] LABS: PLATELET COUNT (AUTO) 141 K/uL (140-450)
[2020-10-01 07:43] LABS: ANION GAP 14.8 (8-16); CARBON DIOXIDE 21.4 mmol/L (21-32); CREATININE 2.2 mg/dL (0.6-1.3)
[2020-10-01 07:44] LABS: MAGNESIUM 2.8 mg/dL (1.8-2.4); PHOSPHORUS 7.9 mg/dL (2.5-4.9)
[2020-10-01 08:00] VITALS: BP 196/99
[2020-10-01 08:55] LABS: POTASSIUM 6.2 mmol/L (3.5-5.1)
--- NOTE | 2020-10-01 09:00 | NUR ---
HIDA SCAN PROCEDURE COMPLETED. WILL RESUME FEEDING PER MD ORDERED.
--- NOTE | 2020-10-01 09:47 | NUR ---
PATIENT'S BP WAS HIGHLY ELEVATED. NOTIFIED MD AND RECEIVED NEW ORDERS.
[2020-10-01] MEDS: FERROUS SULFATE 300 MG/5 ML UDC GT SCH ×2 (09:52→21:25)
[2020-10-01] MEDS: LANSOPRAZOLE 30 MG CAPDR GT SCH (09:52)
[2020-10-01] MEDS: TAMSULOSIN 0.4 MG CAP GT SCH (09:52)
[2020-10-01] MEDS: MULTIVITAMIN/MINERALS 1 TAB PEG SCH (09:52)
[2020-10-01] MEDS: ASCORBIC ACID 500 MG TAB PEG SCH (09:53)
[2020-10-01] MEDS: FLUCONAZOLE 100 MG TAB GT SCH (09:53)
[2020-10-01] MEDS: CLONIDINE HYDROCHLORIDE 0.1 MG TAB PO PRN (10:02)
[2020-10-01] MEDS ORDERED: COMMUNICATION ORDER MC STA (10:12)
[2020-10-01] MEDS ORDERED: SODIUM ZIRCONIUM CYCLOSILICATE 10 GM POWD.PACK PO ONE (10:25)
[2020-10-01] MEDS ORDERED: SODIUM POLYSTYRENE 15 GM/60 ML UDBTL GT SCH (10:25)
[2020-10-01] MEDS ORDERED: BUMETANIDE 1 MG/4 ML VIAL IV SCH (10:30)
--- NOTE | 2020-10-01 10:30 | NUR ---
PATIENT SEEN BY DR. AMIN. DISCUSSED WITH MD PATIENT'S STATUS. NEW ORDERS WERE RECEIVED. WILL CONTINUE TO MONITOR.
--- NOTE | 2020-10-01 11:15 | NUR ---
PT SUCTIONED OBTAINED MODERATE AMOUNT OF CLEAR/WHITE THIN SECRETIONS, AIRWAY IS PATENT AND TRACH IS SECURE. PT NOT IN ANY DISTRESS AT THIS TIME. WILL CONTINUE TO MONITOR.
--- NOTE | 2020-10-01 11:40 | NUR ---
PATIENT'S BP REASSESSED AND IS STILL ELEVATED. NOTIFIED MD AND NEW ORDERS WERE RECEIVED.
[2020-10-01] MEDS ORDERED: LABETALOL 100 MG/20 ML VIAL IV SCH (11:45)
[2020-10-01] MEDS: BLOOD GLUCOSE MONITORING 1 DEV DEV FS SCH ×3 (12:19→21:25)
--- NOTE | 2020-10-01 12:19 | NUR ---
BLOOD GLUCOSE CHECK IS 102. NO INSULIN COVERAGE NEEDED. WILL CONTINUE TO MONITOR.
--- NOTE | 2020-10-01 12:30 | NUR ---
NEW TUBE FEEDING ORDERS WERE RECEIVED. WILL ADMINISTER NEW TUBE FEEDINGS PER MD ORDERED.
[2020-10-01] MEDS: THERAHONEY GEL 42.5 GM TP SCH (13:40)
[2020-10-01 16:00] VITALS: BP 181/85
--- NOTE | 2020-10-01 16:00 | NUR ---
TUBE FEEDINGS RECEIVED AND ADMINISTERED PER MD ORDERED.
--- NOTE | 2020-10-01 16:40 | NUR ---
NOTIFIED MD REGARDING PATIENT'S ELEVATED BP. MD IS AWARE AND WILL TAKE A LOOK AT PATIENT'S HOME MED LIST.
[2020-10-01] MEDS ORDERED: FUROSEMIDE 20 MG/2 ML VIAL IVP SCH ×3 (17:00→21:00)
--- NOTE | 2020-10-01 17:11 | NUR ---
BLOOD GLUCOSE CHECK IS 102. NO INSULIN COVERAGE NEEDED. WILL CONTINUE TO MONITOR. Addendum: 10/01/20 at 1740 by Jabari Merlos RN RN BLOOD SUGAR CHECK IS 100
[2020-10-01 18:07] LABS: ANION GAP 14.9 (8-16); CARBON DIOXIDE 23.6 mmol/L (21-32); CREATININE 2.4 mg/dL (0.6-1.3); POTASSIUM 5.5 mmol/L (3.5-5.1)
[2020-10-01] MEDS: amLODIPine 5 MG TAB PO SCH (18:21)
[2020-10-01] MEDS: METOPROLOL 25 MG TAB PO SCH ×2 (18:21→21:25)
--- NOTE | 2020-10-01 19:15 | NUR ---
ENDORSED TO PLANT GENERAL MANAGER NURSE FOR CONTINUITY CARE. PT IS STABLE.
--- NOTE | 2020-10-01 19:30 | NUR ---
RECEIVED PATIENT FROM AM SHIFT NURSE FOR CONTINUITY OF CARE. AWAKE, NO TRACKING OF EYES. TRACH TO VENT. VENT SETTINGS: ACPRVC FIO2 24% VT 450 RR 18 PEEP 5. RESPIRATIONS SLIGHTLY LABORED AND SHALLOW. O2SAT 95%. FLACC 0. NO S/S ACUTE DISTRESS. SKIN WARM, DRY. SALINE LOCK TO RIGHT FOREARM 20G PATENT/INTACT. SALINE LOCK TO LEFT UPPER ARM 18G PATENT/INTACT. SALINE LOCK TO LEFT WRIST 20G PATENT/INTACT. ABDOMEN SOFT, NONTENDER, NONDISTENDED. BOWEL SOUNDS ACTIVE x4 QUADRANTS. GT PATENT/INTACT. CONTINUES ON ENTERAL FEEDING, TOLERATING WELL. NO RESIDUAL NOTED. HOB UP 30 DEGREES. FAULKNER CATHETER PATENT WITH CLEAR YELLOW URINE DRAINING TO GRAVITY. PLAN OF CARE DISCUSSED. SAFETY PRECAUTIONS IN PLACE.
[2020-10-01 20:00] VITALS: BP 159/93
--- NOTE | 2020-10-01 21:00 | NUR ---
DUE MEDS GIVEN. PATIENT RESTING COMFORTABLY IN BED. NO S/S ACUTE DISTRESS. CALL LIGHT WITHIN REACH. SAFETY PRECAUTIONS IN PLACE.
--- NOTE | 2020-10-01 23:00 | NUR ---
PATIENT TURNED AND REPOSITIONED. FLACC 0. NO S/S ACUTE DISTRESS. CALL LIGHT WITHIN REACH. SAFETY PRECAUTIONS IN PLACE.
[2020-10-02] MEDS: Z-GUARD PASTE TP SCH ×2 (01:17→13:22)
--- NOTE | 2020-10-02 01:30 | NUR ---
VAP ORAL CARE RENDERED. PATIENT RESTING COMFORTABLY IN BED. NO S/S ACUTE DISTRESS. CALL LIGHT WITHIN REACH. SAFETY PRECAUTIONS IN PLACE.
--- NOTE | 2020-10-02 03:00 | NUR ---
PATIENT IS RESTING COMFORTABLY IN BED. NO S/S ACUTE DISTRESS. CALL LIGHT WITHIN REACH. SAFETY PRECAUTIONS IN PLACE.
[2020-10-02 04:00] VITALS: BP 159/92
--- NOTE | 2020-10-02 05:30 | NUR ---
INCONTINENT CARE RENDERED. DUE MEDS GIVEN. PATIENT RESTING COMFORTABLY IN BED. NO S/S ACUTE DISTRESS. FLACC 0. CALL LIGHT WITHIN REACH. SAFETY PRECAUTIONS IN PLACE.
[2020-10-02 06:03] LABS: ANION GAP 14.8 (8-16); CREATININE 2.4 mg/dL (0.6-1.3); POTASSIUM 5.8 mmol/L (3.5-5.1)
[2020-10-02] MEDS: LEVOTHYROXINE 0.1 MG TAB PO SCH (06:11)
[2020-10-02] MEDS: BLOOD GLUCOSE MONITORING 1 DEV DEV FS SCH ×4 (06:31→21:34)
[2020-10-02 06:44] LABS: BASOPHILS % (AUTO) 0.3 % (0.0-2.0); EOSINOPHILS % (AUTO) 0.3 % (0.0-4.0); HEMATOCRIT 29.5 % (36-52); HEMOGLOBIN 9.7 g/dL (12.0-18.0); LYMPHOCYTES # (AUTO) 0.8 K/uL (2.0-11.5); LYMPHOCYTES % (AUTO) 6.7 % (20.5-51.1); MEAN CORPUSCULAR HEMOGLOBIN 31 pg (27-31); MEAN CORPUSCULAR HGB CONC 33 g/dL (33-37); MEAN CORPUSCULAR VOLUME 93.6 fL (80-94); MONOCYTES # (AUTO) 0.3 K/uL (0.8-1.0); MONOCYTES % (AUTO) 2.2 % (1.7-9.3); NEUTROPHILS # (AUTO) 11.4 K/uL (1.8-7.7); NEUTROPHILS % (AUTO) 90.5 % (42.2-75.2); PLATELET COUNT (AUTO) 113 K/uL (140-450); RED BLOOD CELL COUNT(AUTO) 3.15 MIL/uL (4.20-6.10); RED CELL DISTRIBUTION WIDTH 18.3 % (11.6-13.7); WHITE BLOOD COUNT (AUTO) 12.6 K/uL (4.8-10.8)
--- NOTE | 2020-10-02 07:31 | NUR ---
ENDORSED PATIENT TO AM SHIFT NURSE FOR CONTINUITY OF CARE.
--- NOTE | 2020-10-02 07:32 | NUR ---
RECEIVED BEDSIDE REPORT FROM CROP SPECIALIST NURSE FOR CONTINUITY OF CARE. AWAKE, NO TRACKING OF EYES. TRACH TO VENT. VENT SETTINGS: ACPRVC FIO2 24% VT 450 RR 18 PEEP 5. RESPIRATIONS EVEN AND SLIGHTLY LABORED. O2SAT 95%. FLACC 0. NO S/S ACUTE DISTRESS. SKIN WARM, DRY. IV SITES ON RIGHT FOREARM 20G, LEFT UPPER ARM 18G, LEFT WRIST 20G ALL IV SITES PATENT AND INTACT. GT IN PLACE. PATENT/INTACT. CONTINUES ON ENTERAL FEEDING, TOLERATING WELL. NO RESIDUAL NOTED. HOB UP 30 DEGREES. FAULKNER CATHETER IN PLACE. INTACT AND PATENT WITH CLEAR YELLOW URINE DRAINING TO GRAVITY. PLAN OF CARE DISCUSSED. SAFETY PRECAUTIONS IN PLACE. WILL CONTINUE TO MONITOR.
[2020-10-02 08:00] VITALS: BP 152/98
[2020-10-02] MEDS: FERROUS SULFATE 300 MG/5 ML UDC GT SCH ×2 (09:27→21:34)
[2020-10-02] MEDS: FLUCONAZOLE 100 MG TAB GT SCH (09:27)
[2020-10-02] MEDS: MULTIVITAMIN/MINERALS 1 TAB PEG SCH (09:28)
[2020-10-02] MEDS: amLODIPine 5 MG TAB PO SCH (09:28)
[2020-10-02] MEDS: LANSOPRAZOLE 30 MG CAPDR GT SCH (09:28)
[2020-10-02] MEDS: ASCORBIC ACID 500 MG TAB PEG SCH (09:29)
[2020-10-02] MEDS: METOPROLOL 25 MG TAB PO SCH ×2 (09:29→21:34)
[2020-10-02] MEDS: TAMSULOSIN 0.4 MG CAP GT SCH (09:30)
--- NOTE | 2020-10-02 09:30 | NUR ---
ALL SCHEDULED MEDS GIVEN. PT IS STABLE. NO DISTRESS NOTED. WILL CONTINUE TO MONITOR.
--- NOTE | 2020-10-02 09:35 | NUR ---
STABLE NO DISTRESS NOTED GOOD CHEST RISE DEEP TRACHEAL SUCTION FOR SMALL SEMI THICK YELLOW SECRETIONS AIRWAY PATENT
[2020-10-02] MEDS ORDERED: COMMUNICATION ORDER MC PRN (10:15)
[2020-10-02] MEDS ORDERED: SODIUM POLYSTYRENE 15 GM/60 ML UDBTL GT SCH (10:20)
--- NOTE | 2020-10-02 10:30 | NUR ---
PATIENT WAS SEEN BY DR. AMIN. NEW ORDERS WERE RECEIVED FROM MD. WILL CONTINUE TO MONITOR.
--- NOTE | 2020-10-02 10:45 | NUR ---
CHANGED TUBE FEEDING RATE PER MD ORDER. NOW RUNNING 40 ML/HR WITH NO WATER FLUSH. WILL CONTINUE TO MONITOR
[2020-10-02] MEDS: CLONIDINE HYDROCHLORIDE 0.1 MG TAB PO PRN (11:25)
[2020-10-02] MEDS: INSULIN LISPRO SLIDING SCALE 100 UNITS/ML VIAL SUBQ PRN ×2 (11:46→18:22)
--- NOTE | 2020-10-02 12:50 | NUR ---
NOTIFIED MD REGARDING PATIENT'S HIGH BLOOD PRESSURE. NEW ORDERS RECEIVED. WILL ADMINISTERED NEW MEDICATIONS PER MD ORDERED.
[2020-10-02] MEDS ORDERED: hydrALAZINE 20 MG/ML VIAL IVP SCH (13:00)
--- NOTE | 2020-10-02 13:00 | NUR ---
CHANGED PATIENT SHEETS, PADS, AND DRESSING ON SACRAL AREA. KEPT CLEAN AND DRY. PT IS STABLE. WILL CONTINUE TO MONITOR.
[2020-10-02] MEDS: THERAHONEY GEL 42.5 GM TP SCH (13:22)
--- NOTE | 2020-10-02 15:00 | NUR ---
CHECKED ON PATIENT. PT IS STABLE. NO DISTRESS NOTED. WILL CONTINUE TO MONITOR.
[2020-10-02] MEDS: FUROSEMIDE 20 MG/2 ML VIAL IVP SCH (17:05)
--- NOTE | 2020-10-02 17:47 | NUR ---
EQUAL CHEST RISE DEEP TRACHEAL SUCTION FOR THICK SCATTERED YELLOW SECRETIONS AIRWAY PATENT
--- NOTE | 2020-10-02 18:20 | NUR ---
BLOOD GLUCOSE CHECK WAS 218. INSULIN COVERAGE NEEDED. ADMINISTERED 4 UNITS OF INSULIN SQ PER MD ORDERED.
--- NOTE | 2020-10-02 19:00 | NUR ---
AWAKE, NO TRACKING OF EYES. TRACH TO VENT. VENT SETTINGS: ACPRVC FIO2 24% VT 450 RR 18 PEEP 5. RESPIRATIONS WITH OCCASIONAL SLIGHT LABORING. PATIENT SEEN AND EVALUATED BY RESPIRATORY THERAPIST. O2SAT 92%. FLACC 0. NO S/S ACUTE DISTRESS. SKIN WARM, DRY. IV SITES ON RIGHT FOREARM 20G, LEFT UPPER ARM 18G, LEFT WRIST 20G ALL IV SITES PATENT AND INTACT. GT IN PLACE. PATENT/INTACT. CONTINUES ON ENTERAL FEEDING, RATE 40CC/HR, TOLERATING WELL. NO RESIDUAL NOTED. HOB UP 20 DEGREES. MAXIMAL CARE RENDERED, REQUIRES 2 PERSON ASSISTANCE. FALL AND SAFETY PRECAUTIONARY MEASURES IN PLACE. SACRAL WOUND DRESSING IN PLACE. TURNED AND REPOSITIONED Q2 HOURS/PRN. QUALITY SYSTEMS TECHNICIAN CONSULT PENDING. ONGOING MEDICAL CARE RENDERED.
--- NOTE | 2020-10-02 19:30 | NUR ---
ENDORSED TO PIGMENT PUSHER NURSE FOR CONTINUITY OF CARE. PT IS STABLE.
[2020-10-02 19:41] LABS: TOTAL VOLUME 24HRS,URINE 1050 mL
[2020-10-02 20:00] VITALS: BP 148/92
[2020-10-03] MEDS: Z-GUARD PASTE TP SCH ×2 (01:27→15:42)
[2020-10-03 04:00] VITALS: BP 144/94
[2020-10-03 05:28] LABS: BASOPHILS # (AUTO) 0.1 K/uL (0.00-0.22); BASOPHILS % (AUTO) 0.5 % (0.0-2.0); EOSINOPHILS % (AUTO) 0.3 % (0.0-4.0); HEMATOCRIT 24.7 % (36-52); HEMOGLOBIN 8.4 g/dL (12.0-18.0); LYMPHOCYTES # (AUTO) 0.7 K/uL (2.0-11.5); LYMPHOCYTES % (AUTO) 5.8 % (20.5-51.1); MEAN CORPUSCULAR HEMOGLOBIN 31 pg (27-31); MEAN CORPUSCULAR HGB CONC 34 g/dL (33-37); MEAN CORPUSCULAR VOLUME 92.1 fL (80-94); MONOCYTES # (AUTO) 0.3 K/uL (0.8-1.0); MONOCYTES % (AUTO) 2.7 % (1.7-9.3); NEUTROPHILS # (AUTO) 10.9 K/uL (1.8-7.7); NEUTROPHILS % (AUTO) 90.7 % (42.2-75.2); PLATELET COUNT (AUTO) 108 K/uL (140-450); RED BLOOD CELL COUNT(AUTO) 2.68 MIL/uL (4.20-6.10); RED CELL DISTRIBUTION WIDTH 18.2 % (11.6-13.7)
[2020-10-03 05:34] LABS: ANION GAP 14.1 (8-16); CARBON DIOXIDE 24.9 mmol/L (21-32); CREATININE 2.5 mg/dL (0.6-1.3)
[2020-10-03] MEDS: LEVOTHYROXINE 0.1 MG TAB PO SCH (05:58)
--- NOTE | 2020-10-03 06:10 | NUR ---
PATIENT SEEN AND EVALUATED BY RESPIRATORY THERAPIST. CONTINUED TRACH TO VENT. RESPIRATIONS NONLABORED. ACYANOTIC. SKIN WARM AND DRY TO TOUCH. MAXIMAL CARE RENDERED. NO ACUTE DISTRESS NOTED. 16F FAULKNER CATH PATENT WITH 200 CC MERE URINARY OUTPUT. NO ACUTE DISTRESS NOTED.
--- NOTE | 2020-10-03 07:10 | NUR ---
RECEIVED REPORT FROM NIGHT NURSE FOR CONTINUITY OF CARE. PT TRACH TO VENT AC PRVC TV: 453, FIO2:24, PEEP:4, RR: 18. PT HAS SACRAL WOUND WITH OPTIFOAM. PT HAS G-TUBE FEEDING INFUSING JEVITY 1.2 AT 40ML/H. PT HAS FAULKNER CATH. PT HAS RIGHT WRIST 20G, RAYA 18G, LLA 20G SALINE LOCK. SAFETY MEASURES IN PLACE, WILL CONTINUE TO MONITOR.
[2020-10-03] MEDS: BLOOD GLUCOSE MONITORING 1 DEV DEV FS SCH ×4 (07:31→21:31)
--- NOTE | 2020-10-03 07:55 | NUR ---
NOTIFIED DR PELAYO OF ABNORMAL LABS OF POTASSIUM 6, BUN: 95, CREATININE: 2.5. DR PELAYO STATES HE WILL TAKE A LOOK.
[2020-10-03 08:00] VITALS: BP 156/76
[2020-10-03] MEDS: FLUCONAZOLE 100 MG TAB GT SCH (09:42)
[2020-10-03] MEDS: FERROUS SULFATE 300 MG/5 ML UDC GT SCH ×2 (09:42→21:28)
[2020-10-03] MEDS: LANSOPRAZOLE 30 MG CAPDR GT SCH (09:42)
[2020-10-03] MEDS: MULTIVITAMIN/MINERALS 1 TAB PEG SCH (09:43)
[2020-10-03] MEDS: TAMSULOSIN 0.4 MG CAP GT SCH (09:43)
[2020-10-03] MEDS: FUROSEMIDE 20 MG/2 ML VIAL IVP SCH ×2 (09:43→17:56)
[2020-10-03] MEDS: ASCORBIC ACID 500 MG TAB PEG SCH (09:44)
[2020-10-03] MEDS: amLODIPine 5 MG TAB PO SCH (09:44)
[2020-10-03] MEDS: METOPROLOL 25 MG TAB PO SCH ×2 (09:44→21:28)
[2020-10-03] MEDS ORDERED: SODIUM ZIRCONIUM CYCLOSILICATE 10 GM POWD.PACK PO SCH (10:00)
--- NOTE | 2020-10-03 10:08 | NUR ---
ADMINISTERED SCHEDULED MEDICATION, PT TOLERATED WELL. ORAL CARE PROVIDED. WILL CONTINUE TO MONITOR.
--- NOTE | 2020-10-03 11:23 | NUR ---
ROUNDING ON PT. PT TRACH TO VENT, PT ON WOUND BED. WILL CONTINUE TO MONITOR.
--- NOTE | 2020-10-03 13:16 | NUR ---
STABLE RESTING WELL GOOD CHEST RISE DEEP TRACHEAL SUCTION FOR LARGE THIN YELLOW SECRETIONS AIRWAY PATENT
--- NOTE | 2020-10-03 13:30 | NUR ---
ROUNDING ON PT, PT TRACH TO VENT, NO CHANGE IN STATUS. WILL CONTINUE TO MONITOR.
--- NOTE | 2020-10-03 14:59 | NUR ---
SPOKE TO DR. PELAYO ABOUT CHANGING TUBE FEEDING FORMULA TO NEPRO @ 40 ML/HR. DR. PELAYO WAS AGREEABLE.
--- NOTE | 2020-10-03 15:14 | NUR ---
10/03/20 RD FOLLOW UP COMPLETED PLEASE REFER TO NUTRITION ASSESSMENT UNDER CARE ACTIVITY FOR ESTIMATED NUTRITIONAL NEEDS. 1. RECOMMEND NEPRO 1.8 @ 40 ML/HR; FLUSH PER MD -PROVIDES 1728 KCAL AND 78 GM OF PROTEIN, WHICH MEETS 93% KCAL AND 83% OF PROTEIN NEEDS. 2. NO FREE WATER FLUSH PER MD, TO CORRECT HYPONATREMIA 3. RD TO FOLLOW-UP 2-3 DAYS, HIGH RISK YARA ABARCA, RD
--- NOTE | 2020-10-03 15:20 | NUR ---
ROUNDING ON PT, PT RESTING IN BED, WILL CONTINUE TO MONITOR.
[2020-10-03] MEDS: THERAHONEY GEL 42.5 GM TP SCH (15:42)
[2020-10-03 16:00] VITALS: BP 151/77
--- NOTE | 2020-10-03 18:02 | NUR ---
ADMINISTERED SCHEDULED MEDICATION, PT TRACH TO VENT. PT NON-RESPONSIVE, NO CHANGE, WILL CONTINUE TO MONITOR.
--- NOTE | 2020-10-03 19:15 | NUR ---
ENDORSE PT TO NIGHT NURSE FOR CONTINUITY OF CARE
--- NOTE | 2020-10-03 19:16 | NUR ---
RECD PATIENT RESTING IN BED, WITH EYES CLOSED, LETHARGIC. ON TRACH TO VENT FI02 24%. RESPIRATION EVEN AND UNLABORED. O2 SAT - 95%.IV SALINE LOCK AT THE RIGHT WRIST G20 AND LEFT UPPER ARM G20, BOTH PATENT AND INTACT. GT FEEDING OF NEPHRO INFUSING AT 40 ML/HR. BILATERAL UPPER EXTREMITIES AND BILATERAL LOWER EXTREMITIES WITH EDEMA, ALL ELEVATED ON PILLOWS. F/C PATENT AND INTACT DRAINING CLEAR YELLOW URINE. ON WOUND CARE BED. NO APPEARANCE OF PAIN NOTED, FLACC - 0.
[2020-10-03 20:00] VITALS: BP 154/78
--- NOTE | 2020-10-03 21:28 | NUR ---
BP - 154/78, HR - 74, MEDICATED WITH LOPRESSOR 25 MG BY GT. OTHER SCHEDULED MEDS GIVEN.
--- NOTE | 2020-10-04 | NUR ---
BP - 151/73, HR - 80. NO RESPIRATORY DISTRESS NOTED.
[2020-10-04] MEDS: Z-GUARD PASTE TP SCH ×2 (01:00→14:00)
--- NOTE | 2020-10-04 02:00 | NUR ---
ON HIS RIGHT SIDE ASLEEP, 02 SAT - 95%.
[2020-10-04 04:00] VITALS: BP 182/77
[2020-10-04] MEDS: THERAHONEY GEL 42.5 GM TP SCH (06:00)
[2020-10-04] MEDS: LEVOTHYROXINE 0.1 MG TAB PO SCH (06:15)
[2020-10-04] MEDS: BLOOD GLUCOSE MONITORING 1 DEV DEV FS SCH ×3 (06:28→17:29)
[2020-10-04] MEDS: CLONIDINE HYDROCHLORIDE 0.1 MG TAB PO PRN (06:30)
--- NOTE | 2020-10-04 06:30 | NUR ---
BP - 182/77, HR - 71, MEDICATED WITH CATAPRES PER MD ORDER.
--- NOTE | 2020-10-04 06:53 | NUR ---
rec'd pt on carescape vent settings prvc rr 18 vt 450 itime 0.90 peep5 fio2 24% alarms on and audible and vent is plugged into red outlet, sxn pt a small amt of yellow secretions, b\s diminished bilaterally, bvm at [facility],pt is trach with portex 7 and pt is sleeping will continue to monitor pt
--- NOTE | 2020-10-04 06:58 | NUR ---
Patient's Plan of Care was discussed and reviewed with VANIA: VANIA MEDELLIN
--- NOTE | 2020-10-04 07:09 | NUR ---
CONDITION REMAIN STABLE. ENDORSED TO AM SHIFT NURSE FOR CONTINUITY OF CARE.
--- NOTE | 2020-10-04 07:10 | NUR ---
RECEIVED REPORT FROM NIGHT NURSE FOR CONTINUITY OF CARE. PT TRACH TO VENT AC PRVC TV: 449, FIO2:24, PEEP:5, RR: 18. PT HAS SACRAL WOUND WITH OPTIFOAM. PT HAS G-TUBE FEEDING INFUSING NEPHRO AT 40ML/H. PT HAS FAULKNER CATH. PT HAS RIGHT WRIST 20G, LLA 20G SALINE LOCK. SAFETY MEASURES IN PLACE, WILL CONTINUE TO MONITOR.
[2020-10-04 08:00] VITALS: BP 163/81
--- NOTE | 2020-10-04 08:10 | NUR ---
NOTIFIED DR PELAYO BP 188/86, HR75. INFORM DR PELAYO WILL GIVE PT HIS MORNING BP MEDS. WILL AWAIT DR PELAYO RESPONSE. WILL CONTINUE TO MONITOR HI.
[2020-10-04] MEDS: FERROUS SULFATE 300 MG/5 ML UDC GT SCH (08:19)
[2020-10-04] MEDS: amLODIPine 5 MG TAB PO SCH (08:19)
[2020-10-04] MEDS: FLUCONAZOLE 100 MG TAB GT SCH (08:19)
[2020-10-04] MEDS: LANSOPRAZOLE 30 MG CAPDR GT SCH (08:20)
[2020-10-04] MEDS: METOPROLOL 25 MG TAB PO SCH (08:20)
[2020-10-04] MEDS: FUROSEMIDE 20 MG/2 ML VIAL IVP SCH ×2 (08:20→17:34)
[2020-10-04] MEDS: ASCORBIC ACID 500 MG TAB PEG SCH (08:20)
[2020-10-04] MEDS: MULTIVITAMIN/MINERALS 1 TAB PEG SCH (08:20)
[2020-10-04] MEDS: TAMSULOSIN 0.4 MG CAP GT SCH (08:20)
--- NOTE | 2020-10-04 08:38 | NUR ---
ADMINISTERED SCHEDULED MEDICATION, MEDICATION EDUCATION PROVIDED. PT TRACH TO VENT. PT APHASIC. PT TOLERATED WELL. WILL CONTINUE TO MONITOR. DR PELAYO SAID TO CONTINUE TO MONITOR PT BECAUSE OF HIS ELEVATED BP AND AFTER GIVING PT HIS AM BP MEDS.
[2020-10-04] MEDS ORDERED: NACL 0.9% 1,000 ML IV SCH (09:25)
--- NOTE | 2020-10-04 09:39 | NUR ---
SEND A PAGED TO DR BENOIT SOTOMAYOR TO CLARIFY ORDER FOR BOLUS 1000ML NORMAL SALINE FOR PT PT HAS ELEVATED BP 163/81, HR 76. WILL HOLD ORDER UNTIL CLARIFICATION OBTAINED.
--- NOTE | 2020-10-04 10:11 | NUR ---
VERIFIED WITH DR MUÑOZ TO GIVE NORMAL SALINE BOLUS. ADMINISTERED FLUIDS, WILL CONTINUE TO MONITOR
[2020-10-04 11:20] LABS: BASOPHILS # (AUTO) 0.1 K/uL (0.00-0.22); BASOPHILS % (AUTO) 0.7 % (0.0-2.0); HEMATOCRIT 24.4 % (36-52); HEMOGLOBIN 8.2 g/dL (12.0-18.0); MEAN CORPUSCULAR HEMOGLOBIN 31 pg (27-31); MEAN CORPUSCULAR HGB CONC 34 g/dL (33-37); MEAN CORPUSCULAR VOLUME 91.6 fL (80-94); MONOCYTES # (AUTO) 0.4 K/uL (0.8-1.0); MONOCYTES % (AUTO) 2.5 % (1.7-9.3); NEUTROPHILS % (AUTO) 89.8 % (42.2-75.2); PLATELET COUNT (AUTO) 95 K/uL (140-450); RED BLOOD CELL COUNT(AUTO) 2.67 MIL/uL (4.20-6.10); RED CELL DISTRIBUTION WIDTH 18.1 % (11.6-13.7); WHITE BLOOD COUNT (AUTO) 14.5 K/uL (4.8-10.8)
[2020-10-04 11:28] LABS: ANION GAP 13.3 (8-16); CARBON DIOXIDE 25.7 mmol/L (21-32); CREATININE 2.7 mg/dL (0.6-1.3)
[2020-10-04 11:58] LABS: PHOSPHORUS 9.6 mg/dL (2.5-4.9)
[2020-10-04] MEDS ORDERED: LAS20I IVP (13:06)
[2020-10-04] MEDS ORDERED: METO25TA PO (13:06)
[2020-10-04] MEDS ORDERED: AMLO-3 PO (13:06)
[2020-10-04] MEDS ORDERED: SYN.1 PO (13:06)
[2020-10-04] MEDS ORDERED: FER300L GT (13:06)
--- NOTE | 2020-10-04 13:30 | NUR ---
PT RESTING IN BED, TRACH TO VENT, NO CHANGE IN STATUS, WILL CONTINUE TO MONITOR
--- NOTE | 2020-10-04 15:30 | NUR ---
SUCTIONED PT. PT TOLERATED WELL. WILL CONTINUE TO MONITOR
--- NOTE | 2020-10-04 15:33 | NUR ---
CALLED [facility] AND GAVE REPORT TO MICHELLE. PT IS DUE TO BE PICKED UP AT 1700 BY [facility]. PT IS GOING TO ROOM 2-C UNDER DR PARRISH. NOTIFIED FAMILY MEMBER OF TRANSFER.
--- NOTE | 2020-10-04 17:38 | NUR ---
ADMINISTERED SCHEDULED MEDICATION, PT TOLERATED WELL. WILL CONTINUE TO MONITOR.
--- NOTE | 2020-10-04 18:00 | NUR ---
[place] [facility] [place] [facility] GAVE REPORT TO [facility].
== END 2020-10-04 18:08 | DRG 720 ==
LOC: MED 12:22 → MTU 15:21
PROVIDERS: ADMIT Family Medicine; ATTEND Family Medicine
PROC: 5A1955Z Respiratory Ventilation, Greater than 96 Consecutive Hours (ICD-10-PCS; principal; 2020-09-24)
DX: A41.9 Sepsis, unspecified organism (principal); J69.0 Pneumonitis due to inhalation of food and vomit; E43 Unspecified severe protein-calorie malnutrition; N17.0 Acute kidney failure with tubular necrosis; Z20.822 Contact with and (suspected) exposure to COVID-19; Z68.21 Body mass index [BMI] 21.0-21.9, adult; E03.9 Hypothyroidism, unspecified; N40.0 Benign prostatic hyperplasia without lower urinary tract symptoms; E11.9 Type 2 diabetes mellitus without complications; G93.41 Metabolic encephalopathy; R74.01 Elevation of levels of liver transaminase levels; E83.39 Other disorders of phosphorus metabolism; E83.41 Hypermagnesemia; E86.0 Dehydration; B37.49 Other urogenital candidiasis; Z87.440 Personal history of urinary (tract) infections; Z93.1 Gastrostomy status; D63.8 Anemia in other chronic diseases classified elsewhere; J96.21 Acute and chronic respiratory failure with hypoxia; R13.10 Dysphagia, unspecified; J90 Pleural effusion, not elsewhere classified; R74.8 Abnormal levels of other serum enzymes; I12.9 Hypertensive chronic kidney disease with stage 1 through stage 4 chronic kidney disease, or unspecified chronic kidney disease; Z86.74 Personal history of sudden cardiac arrest; J96.22 Acute and chronic respiratory failure with hypercapnia; K92.2 Gastrointestinal hemorrhage, unspecified; E87.5 Hyperkalemia; E11.649 Type 2 diabetes mellitus with hypoglycemia without coma; E11.22 Type 2 diabetes mellitus with diabetic chronic kidney disease; N18.9 Chronic kidney disease, unspecified; Z99.11 Dependence on respirator [ventilator] status; K80.10 Calculus of gallbladder with chronic cholecystitis without obstruction
CPT/HCPCS: 36415; 36600; 70450; 71045; 76705; 78445; 80048; 80053; 80076; 81001; 82150; 82570; 82803; 82948; 82977; 83036; 83605; 83690; 83735; 83880; 83930; 83935; 84100; 84156; 84300; 84436; 84439; 84443; 84479; 84484; 85025; 85610; 85730; 87040; 87081; 87086; 93005; 94002; 94003; 96365; 99291; J0171; J0360; J0770; J1450; J1644; J1940; J2185; J3490; J7030; J7042; J7060; J7120; U0003